=== PATIENT | female | born 1950 | race Caucasian/White ===

== ENCOUNTER → 2018-02-24 | Outpatient (CLI) | payer MEDICARE, OTHER ==
[~2018-02-24] MED LIST: ALBU90OI INH; ASCO1ER PO; ASPI325; ASPI325 PO; ASPI81CH PO; AZIT250 PO; Bactrim Ds Tab1 EACH PO; CEPH500 PO; CIPR500 PO; CITA20 PO; CYCL10 PO; DIAZ10 PO; DIPH50 PO; DOCU100 PO; ERGO400 PO; ESTR1 PO; ESTR2; FISH1000 PO; Flagyl500 MG PO; HYDACE25S; IBUP600 PO; IBUP800; IBUP800 PO; IRON PO; Kristalose20 GM PO; LEVSOD100; LEVSOD100 PO; LEVSOD125 PO; LEVSOD50 PO; LORA1 PO; METR500 PO; MIRALAX17 GM PO; MOTION SICKNESS PO; NAPR500EC PO; NITR100CA PO; OMEP20ER PO; OXYC40ER PO; PHENA200 PO; PRAV40 PO; PROACE100 PO; PROACE50 PO; PROM25 PO; Percocet 5-3251 EACH PO; RANI150; RANI150 PO; RXCLIN PO; RXERYTOPTH OP; SIMV40 PO; SIMV5 PO; SUCR1 PO; SULTRIDS PO; TRAM50 PO; Ultram50 MG PO; VENL75 PO; Zofran Odt8 MG SL
== END | disposition home or self-care (01) ==
LOC: PLD 16:42 → LAB SHORT 16:42
DX: D03.59 Melanoma in situ of other part of trunk (principal)
CPT/HCPCS: 88305

== ENCOUNTER → 2018-03-05 | Outpatient (CLI) | payer MEDICARE, OTHER | END | disposition home or self-care (01) | LOC: LAB SHORT 15:09 → PLD 15:09 | DX: C43.59 Malignant melanoma of other part of trunk (principal) | CPT/HCPCS: 88305 ==

== ENCOUNTER 2021-10-15 04:46 | Inpatient (IN) | payer OTHER ==
[~2021-10-15] VITALS: Ht 157.5 cm; Wt 127.6 kg
[~2021-10-15 04:46] MED LIST changes: +LEVSOD150 PO; +MYRBETRIQ50 MG; +RANI150EL; +SIMV40; +TOLT4
[2021-10-15 05:24] LABS: BASOPHILS ABSOLUTE AUTO 0.04 K/mm3 (0.00-0.23); BASOPHILS PERCENT AUTO 0 % (0-2); EOSINOPHILS ABSOLUTE AUTO 0.05 K/mm3 (0.00-0.68); EOSINOPHILS PERCENT AUTO 1 % (0-6); Hematocrit 45.7 % (33.0-51.0); Hemoglobin 15.7 g/dL (11.5-16.0); IMMATURE GRAN ABSOLUTE AUTO 0.05 K/mm3 (0.00-0.10); IMMATURE GRAN PERCENT AUTO 1 % (0-1); LYMPHOCYTES ABSOLUTE AUTO 1.47 K/mm3 (0.84-5.20); LYMPHOCYTES PERCENT AUTO 14 % (21-46); MONOCYTES ABSOLUTE AUTO 0.61 K/mm3 (0.16-1.47); MONOCYTES PERCENT AUTO 6 % (4-13); Mean Corpuscular HGB 32.6 pg (26.0-34.0); Mean Corpuscular HGB Conc 34.4 g/dL (31.5-36.5); Mean Corpuscular Volume 95 fL (80-100); NEUTROPHILS ABSOLUTE AUTO 8.05 K/mm3 (1.96-9.15); NEUTROPHILS PERCENT AUTO 78 % (41-73); Platelet Count 228 K/mm3 (150-400); RDW Coefficient Variation 14.5 % (11.7-14.2); RDW Standard Deviation 50.7 fL (35.1-46.3); Red Blood Cell Count 4.82 M/mm3 (3.80-5.20); White Blood Cell Count 10.27 K/mm3 (4.00-11.30)
[2021-10-15] MEDS ORDERED: OMEP20ER PO (05:32)
[2021-10-15] MEDS ORDERED: SUCRALFATE PO (05:32)
[2021-10-15] MEDS ORDERED: ASCO500 PO (05:33)
[2021-10-15] MEDS ORDERED: CENTRUM SILVER1 EAC2 PO (05:33)
[2021-10-15] MEDS ORDERED: ZINC50 M3 PO (05:34)
[2021-10-15] MEDS ORDERED: FISH OIL 1,2001 EAC1 PO (05:34)
[2021-10-15] MEDS ORDERED: Vitamin D1000 UNI1 PO (05:36)
[2021-10-15] MEDS ORDERED: Vitamin B Comple1 EA PO (05:36)
[2021-10-15] MEDS ORDERED: ROSU10TA PO (05:38)
[2021-10-15 05:49] LABS: Alanine Aminotransfer (ALT/SGP 31 U/L (12-78); Albumin, Blood 2.9 g/dL (3.4-5.0); Albumin/Globulin Ratio 0.6 (0.8-1.8); Alk Phos 94 U/L (50-136); Anion Gap 9 mmol/L (6-16); Aspartate Aminotrans (AST/SGOT 24 U/L (12-37); Bilirubin, Total 0.3 mg/dL (0.1-1.0); Blood Urea Nitrogen 17 mg/dL (8-24); Bun/Creatinine Ratio 27.6 (12.0-20.0); CO2, Blood 29 mmol/L (21-32); Calcium, Blood 9.5 mg/dL (8.5-10.1); Chloride, Blood 103 mmol/L (98-108); Creatinine, Blood 0.62 mg/dL (0.40-1.00); Globulin, Blood 4.7 g/dL (2.2-4.0); Glomerular Filtration Rate >60 (60-); Glucose, Blood 122 mg/dL (70-99); Potassium, Blood 2.9 mmol/L (3.5-5.5); Sodium, Blood 141 mmol/L (136-145); Total Protein, Blood 7.6 g/dL (6.4-8.2); Troponin I <0.015 ng/mL (0.000-0.040)
[2021-10-15 05:53] LABS: International Normalized Ratio 1.03; Prothrombin Time Results 10.8 Sec (9.7-11.5)
[2021-10-15 06:35] LABS: Influenza A, PCR NEGATIVE (NEGATIVE); Influenza B, PCR NEGATIVE (NEGATIVE); Resp Syncytial Virus, PCR NEGATIVE (NEGATIVE); SARS-Cov-2 (COVID-19) PCR, MMC NEGATIVE (NEGATIVE)
--- NOTE | 2021-10-15 10:21 | NUR ---
PT RECIEVED 1 OF 2 BAGS OF INTRAVENOUS POTASSIUM CHLORIDE IN EMERGENCY ROOM. SECOND BAG HELD AFTER CONSULTING DR. DUNLAP.
--- NOTE | 2021-10-15 16:00 | NUR ---
ARRIVAL TO UNIT ALERT, ORIENTED, & PLEASANT. ASSESSMENT CHARTED. DENIES N/V. ICE CHIPS GIVEN. PAIN TOLERABLE AT THIST ANDRE BUT STILL REQUESTS THE DILAUDID TIEING MACHINE OPERATOR BE STARTED. MED REQUESTED FROM PHARMACY @ THIS TIME. ABD BINDER IN PLACE.
--- NOTE | 2021-10-15 23:12 | NUR ---
PT IS IN BED AT THIS TIME WHERE SHE IS RESTING QUIETLY IN A PLEASANT MOOD. SHE IS FULLY ALERT, AWAKE AND ORIENTED, DENIES ANY PAIN. HAS REPORTED NAUSEA WHICH SHE STATED HAD GONE AWAY ON ITS OWN. NO ANTIEMETIC NEEDED AT THIS TIME. SHE IS URGED TO VERBALIZED DISCOMFORT TO STAFF. DECREASED BP AND INCREASE HEART RATE NOTE. THE DOCTOR RESPONDED BY ORDERING HER A LITER OF LR WHICH HAS IMPROVED THT CONDITION. PT IS ASSISTED WITH HER CARE AND ADLS, MEDICATED INDICATED. ASSISTED WITH REPOSITIONING TO ENHANCE COMFORT.
--- NOTE | 2021-10-16 02:01 | NUR ---
PT CONTINUES TO EXPERIENCE INCREASED HEART RATE AND DECREASED BP AFTER SHE TOOK 1L LR BOLUS. DR OLSEN NOTIFIED AND SAID TO GIVE HER ANOTHER LR BOLUS 1L AND INCREASE HER NS TO 150CC/HR. ORDER NOTED.
[2021-10-16 02:15] LABS: BASOPHILS ABSOLUTE AUTO 0.05 K/mm3 (0.00-0.23); BASOPHILS PERCENT AUTO 1 % (0-2); EOSINOPHILS ABSOLUTE AUTO 0.01 K/mm3 (0.00-0.68); EOSINOPHILS PERCENT AUTO 0 % (0-6); Hematocrit 39.4 % (33.0-51.0); Hemoglobin 13.1 g/dL (11.5-16.0); IMMATURE GRAN ABSOLUTE AUTO 0.04 K/mm3 (0.00-0.10); IMMATURE GRAN PERCENT AUTO 0 % (0-1); LYMPHOCYTES ABSOLUTE AUTO 1.01 K/mm3 (0.84-5.20); LYMPHOCYTES PERCENT AUTO 10 % (21-46); MONOCYTES ABSOLUTE AUTO 0.94 K/mm3 (0.16-1.47); MONOCYTES PERCENT AUTO 9 % (4-13); Mean Corpuscular HGB 32.8 pg (26.0-34.0); Mean Corpuscular HGB Conc 33.2 g/dL (31.5-36.5); Mean Corpuscular Volume 99 fL (80-100); Mean Platelet Volume 10.8 fL (9.1-12.4); NEUTROPHILS ABSOLUTE AUTO 8.18 K/mm3 (1.96-9.15); NEUTROPHILS PERCENT AUTO 80 % (41-73); Platelet Count 221 K/mm3 (150-400); RDW Coefficient Variation 14.9 % (11.7-14.2); White Blood Cell Count 10.23 K/mm3 (4.00-11.30)
[2021-10-16 02:29] LABS: Calcium, Blood 8.1 mg/dL (8.5-10.1); Magnesium, Blood 2.2 mg/dL (1.6-2.4); Potassium, Blood 3.8 mmol/L (3.5-5.5)
--- NOTE | 2021-10-16 07:35 | NUR ---
ASSUMED CARE: PT RESTING IN BED, 2L O2 IN PLACE VIA NC. PT STATES ABDOMEN IS TENDER. MIDLINE EDWARDO DRESSING NOTED WITH SMALL DROP OF BLOOD TO DRESSING. TAILER OUT PUMP IN PLACE FOR PT'S PAIN. HYPOTENSION NOTED, NIGHT RN REPORTED THAT DR IS AWARE. FLUIDS RUNNING AT 150/HR CURRENTLY. STORE ASSOCIATE AT BEDSIDE
--- NOTE | 2021-10-16 08:54 | NUR ---
DR SALES CAME TO SEE PT THIS AM. STATES OK WITH MAP GREATER THAN 65 OK. INSTRUCTED RN TO CHECK BACK WITH HER THIS AFTERNOON. MADE HER AWARE THAT NIGHT RN DID NOT DC PULIDO DUE TO LOW OUTPUT AND WAS CONCERNED THAT DR MAY STILL WANT TO MONITOR I AND O. DR INSTRUCTED TO LEAVE IT IN FOR NOW AND LEAVE FLUIDS AT 150/HR AT THIS TIME.
--- NOTE | 2021-10-16 09:57 | NUR ---
10/16/21 0957 Indira Acosta VERIFICATIONS: EDIT CHART.
--- NOTE | 2021-10-16 10:01 | NUR ---
PHYSICAL THERAPY CAME TO SEE PT AND PT REFUSED DUE TO WANTING TO HEAR SURGEON'S RECOMMENDATIONS FIRST. THIS RN CAME TO SEE PT AND MADE HER AWARE THAT IF SHE DOES NOT START AMBULATING THERE ARE RISKS OF SURGICAL COMPLICATIONS INCLUDING CONSTIPATION AND FURTHER PAIN. MADE HER AWARE THAT DR ANTHONY ORDERED PHYSICAL THERAPY CONSULT
--- NOTE | 2021-10-16 13:26 | NUR ---
CALL TO DR SALES TO UPDATE HER ON PT'S URINE OUTPUT AND BLOOD PRESSURE. NO CHANGES TO ORDERS AT THIS TIME. INSTRUCTS TO CALL BACK THIS AFTERNOON TO FOLLOW UP
--- NOTE | 2021-10-16 16:48 | NUR ---
CALL TO DR SALES REGARDING PT'S VITALS AND I AND OS. PT DOES NOT EXHIBIT ANY SIGN OF SOB OR OVERLOAD AT THIS TIME. DR INSTRUCTED TO MAINTAIN IVF AT CURRENT RATE AND TO CONTINUE MONITORING I AND O WITH PULIDO AT THIS TIME.
--- NOTE | 2021-10-16 18:14 | NUR ---
SHIFT SUMMARY: PT WAS SEEN BY DR ANTHONY AND DR ANTHONY WANTS TO ENCOURAGE CHANGE OF POSITION AND AMBULATION. PT REQUIRES A LOT OF ENCOURAGEMENT TO DO THIS. DILUADID MANAGER SEMICONDUCTOR IN PLACE. NAUSEA MEDS GIVEN MULTIPLE TIMES THIS SHIFT. UP IN RECLINER X2
--- NOTE | 2021-10-16 23:17 | NUR ---
PT C/O INCREASED HEARTBURN, DR OLSEN NOTIFIED AND SAID TO GIVE HER A DOSE OF IV PROTONIX NOW AND CHANGE HER DAILY DOSE TO BID. ORDER NOTED.
--- NOTE | 2021-10-17 04:35 | NUR ---
PT REMAINS IN BED THROUHOUT THE NIGHT AND IS RESTING IN STABLE CONDITION. SHE IS ALERT AND ORIENTED, MEDICATED WITH IV MEDS FOR C/O NAUSEA AND HEARTBURN. SHE IS RECOVERING FROM ABDOMINAL SURGERY, MIDLINE EDWARDO DRESSING NOTED AT THE INCISION SITE AND IS PATENT. PT IS ENCOURAGED TO PRACTICE LUNG EXERCISES VIA USE OF IS AND COUGH / DEEP BREATHING TO PROMOTE COMFORT AND AIR EXCHANGE. SHE IS ASSISTED WITH POSITION CHANGE, KEPT CLEAN AND DRY, MEDICATED INDICATED. HER CALL LIGHT WAS PLACED NEAR HER AND REMINDED TO CALL FOR HELP WHEN SHE NEEDS ASSISTANCE SHE IS MONITORED.
[2021-10-17 04:40] LABS: BASOPHILS ABSOLUTE AUTO 0.05 K/mm3 (0.00-0.23); BASOPHILS PERCENT AUTO 0 % (0-2); EOSINOPHILS ABSOLUTE AUTO 0.01 K/mm3 (0.00-0.68); EOSINOPHILS PERCENT AUTO 0 % (0-6); Hematocrit 38.5 % (33.0-51.0); Hemoglobin 12.2 g/dL (11.5-16.0); IMMATURE GRAN ABSOLUTE AUTO 0.16 K/mm3 (0.00-0.10); IMMATURE GRAN PERCENT AUTO 1 % (0-1); LYMPHOCYTES ABSOLUTE AUTO 1.05 K/mm3 (0.84-5.20); LYMPHOCYTES PERCENT AUTO 8 % (21-46); MONOCYTES ABSOLUTE AUTO 1.25 K/mm3 (0.16-1.47); MONOCYTES PERCENT AUTO 9 % (4-13); Mean Corpuscular HGB 32.2 pg (26.0-34.0); Mean Corpuscular HGB Conc 31.7 g/dL (31.5-36.5); Mean Corpuscular Volume 102 fL (80-100); Mean Platelet Volume 10.3 fL (9.1-12.4); NEUTROPHILS ABSOLUTE AUTO 10.93 K/mm3 (1.96-9.15); NEUTROPHILS PERCENT AUTO 81 % (41-73); Platelet Count 215 K/mm3 (150-400); RDW Coefficient Variation 15.3 % (11.7-14.2); RDW Standard Deviation 57.6 fL (35.1-46.3); Red Blood Cell Count 3.79 M/mm3 (3.80-5.20); White Blood Cell Count 13.45 K/mm3 (4.00-11.30)
[2021-10-17 05:13] LABS: Albumin, Blood 1.9 g/dL (3.4-5.0); Anion Gap 12 mmol/L (6-16); Blood Urea Nitrogen 17 mg/dL (8-24); Bun/Creatinine Ratio 27.2 (12.0-20.0); CO2, Blood 18 mmol/L (21-32); Calcium, Blood 7.7 mg/dL (8.5-10.1); Chloride, Blood 109 mmol/L (98-108); Creatinine, Blood 0.63 mg/dL (0.40-1.00); Glomerular Filtration Rate >60 (60-); Glucose, Blood 87 mg/dL (70-99); Phosphorus, Blood 1.9 mg/dL (2.5-4.9); Potassium, Blood 3.6 mmol/L (3.5-5.5); Sodium, Blood 139 mmol/L (136-145)
--- NOTE | 2021-10-17 14:46 | NUR ---
CARE ASSUMED OF PT. PT IS RESTING IN BED WITH EYES CLOSED, SHE APPEARS COMFORTABLE. FLOW WORKER BUTTON AND CALL LIGHT WITHIN REACH. WILL CONTINUE TO MONITOR.
--- NOTE | 2021-10-17 18:59 | NUR ---
SHIFT SUMMARY PAIN MANAGED WITH DILAUDID SUPERVISOR COOLER SERVICE THIS SHIFT. PT REPORTS PASSING FLATUS. TOLERATING SIPS AND CHIPS. NO CHANGES SINCE CARE ASSUMED.
--- NOTE | 2021-10-17 23:12 | NUR ---
PT IN BED AND IS RESTING COMFORTABLY, CONDITION IS STABLE. ALERT AND ORIENTED, ASSISTED WITH CARE AND ADLS, ASSISTED WITH BATHROOM AND TOILETING NEEDS, MEDICATED INDICATED. PT IS ASSISTED WITH POSITION CHANGE TO ENHANCE COMFORT, ENCOURAGED TO PRACTICE COUGH, DEEP BRETHING AND USE IS TO PROMOTE RESPIRATORY FUNCTION. CALL BALLESTEROS PLACED NEAR HER AND ENCOURAGED TO CALL FOR HELP WHEN ASSISTANCE IS NEEDED SHE IS MONITORED.
--- NOTE | 2021-10-18 05:23 | NUR ---
PT IS IN BED AT THIS TIME AND IS RESTING QUIETLY. SHE IS STABLE CONDITION. SHE IS ASSISTED WITH PERSONAL CARE AND ADLS, MEDICATED ORDERED. SHE CONTINUES TO EXPERIENCE SWELLING IN THE LOWER EXTREMITIES. SHE INDICATED THAT THE CONDITION IS NOT NEW TO HER. PALPABLE PEDAL PULSE NOTED BILATERALLY, CAP REFILL IN BOTH FEET IS < 3SECS, AND MOVEMENT IN THE FEET IS INTACT. SHE IS TRANSFERRED FROM BED TO HER BEDSIDE COMMODE WITH MODERATE ASSISTANCE WHEN SHE NEEDS TO USE THE BATHROOM. SHE IS ASSISTED WITH LEG ELEVATION TO PROMOTE VENOUS RETURN. PT CONTINUES TO RECOVER FROM ABD SURGERY, MIDLINE EDWARDO DRESSING IS IN PLACE AND IS PATENT, SHE IS ENCOURAGED TO USE HER BUILDING CONSTRUCTION TEACHER WHEN SHE FEELS PAIN. SHE IS URGED TO PRACTICE COUGHT, DEEP BREATHING, AND USE HER IS WHILE HOB IS KEPT ELEVATED TO PROMOTE AIR EXCHANGE. HER CALL LIGHT WAS GIVEN TO HER AND WAS ENCOURAGED TO CALL FOR HELP WHEN ASSISTANCE IS NEEDED SHE IS MONITORED.
[2021-10-18 06:01] LABS: BASOPHILS ABSOLUTE AUTO 0.03 K/mm3 (0.00-0.23); BASOPHILS PERCENT AUTO 0 % (0-2); EOSINOPHILS ABSOLUTE AUTO 0.13 K/mm3 (0.00-0.68); EOSINOPHILS PERCENT AUTO 2 % (0-6); Hematocrit 34.1 % (33.0-51.0); Hemoglobin 10.9 g/dL (11.5-16.0); IMMATURE GRAN ABSOLUTE AUTO 0.13 K/mm3 (0.00-0.10); IMMATURE GRAN PERCENT AUTO 2 % (0-1); LYMPHOCYTES ABSOLUTE AUTO 1.12 K/mm3 (0.84-5.20); LYMPHOCYTES PERCENT AUTO 15 % (21-46); MONOCYTES PERCENT AUTO 9 % (4-13); Mean Corpuscular HGB 31.8 pg (26.0-34.0); Mean Corpuscular Volume 99 fL (80-100); Mean Platelet Volume 10.2 fL (9.1-12.4); NEUTROPHILS ABSOLUTE AUTO 5.45 K/mm3 (1.96-9.15); NEUTROPHILS PERCENT AUTO 72 % (41-73); Platelet Count 188 K/mm3 (150-400); RDW Standard Deviation 55.1 fL (35.1-46.3); Red Blood Cell Count 3.43 M/mm3 (3.80-5.20); White Blood Cell Count 7.56 K/mm3 (4.00-11.30)
[2021-10-18 07:08] LABS: Albumin, Blood 1.6 g/dL (3.4-5.0); Anion Gap 5 mmol/L (6-16); Blood Urea Nitrogen 12 mg/dL (8-24); Bun/Creatinine Ratio 24.3 (12.0-20.0); CO2, Blood 25 mmol/L (21-32); Calcium, Blood 7.8 mg/dL (8.5-10.1); Chloride, Blood 108 mmol/L (98-108); Creatinine, Blood 0.49 mg/dL (0.40-1.00); Glomerular Filtration Rate >60 (60-); Glucose, Blood 111 mg/dL (70-99); Phosphorus, Blood 1.3 mg/dL (2.5-4.9); Potassium, Blood 4.2 mmol/L (3.5-5.5); Sodium, Blood 138 mmol/L (136-145)
--- NOTE | 2021-10-18 17:18 | NUR ---
PT REPORTS PAIN IS CONTROLLED AT 2-3 WITH PUBLICATIONS PRODUCTION SUPERVISOR. UP TTO CHAIR AND COMMODE WITH MODERATE ASSIST, PT NEEDS ENCOURAGEMENT TO ASSIST IN REPOSITIONING SELF AND ADJUSTING BED. ABD DRESSING INTACT WITH DRIED DRAINAGE. PT JENNY CLEAR LIQUIDS WITHOUT NAUSEA
--- NOTE | 2021-10-19 05:52 | NUR ---
SHIFT SUMMARY Pt A/Ox4, but drowsy/anxious over night. Pt transferred to and from bed to chair/commode multiple times with walker. x2 staff assist. Abd viviane dressing intact with small shadowing. Active bowel tones/passing flatus. + BM x1. Pain controlled with BUDGET ENGINEER and scheduled tylenol. VSS. Dypnea with exertion. 1.5L NC on patient. Pt voiding dark mile urine. Educated on the importance of increasing fluid intake for hydration. WCTM
[2021-10-19 08:41] LABS: Albumin, Blood 1.7 g/dL (3.4-5.0); Anion Gap 5 mmol/L (6-16); Blood Urea Nitrogen 11 mg/dL (8-24); Bun/Creatinine Ratio 23.1 (12.0-20.0); CO2, Blood 24 mmol/L (21-32); Chloride, Blood 108 mmol/L (98-108); Creatinine, Blood 0.48 mg/dL (0.40-1.00); Glomerular Filtration Rate >60 (60-); Glucose, Blood 98 mg/dL (70-99); Magnesium, Blood 2.1 mg/dL (1.6-2.4); Potassium, Blood 3.9 mmol/L (3.5-5.5); Sodium, Blood 137 mmol/L (136-145)
--- NOTE | 2021-10-19 11:35 | NUR ---
1040 PATIENT WITH ONSET OF AUDIBLE WHEEZES, DR ANTHONY HERE TO SEE PATIENT AND NEW ORDERS RECEIVED. LUNGS TIGHT, DIMINISHED IN LOWER 1/3.
--- NOTE | 2021-10-19 12:15 | NUR ---
PT FOUND STANDING IN ROOM TRANSFERRING SELF FROM COMMODE TO BED. CALL LIGT WAS ON PATIENTS LAP WHILE SHE WAS SITTING ON COMMODE. PT HAD REMOVED ABD BINDER, REDDENED ARE 2 "LONG NOTED ON LUMBAR AREA WHERE EDGE OF ABD BINDER WAS. PT REPOSITIONED IN BED, CALL LIGHT IN REACH AND PATIENT INSTRUCTED TO USE CALL LAIGHT AND NOT TO GET SELF OOB WITHOUT ASSISTANCE DUE TO FALL RISK. BED ALARM IN PLACE
--- NOTE | 2021-10-19 18:08 | NUR ---
PT WITH WAVES OF NAUSEA THAT SHE REPORTS IS NOT ASSOCIATED WITH INCREASED ABD PAIN. PT WITH PERIODS OF AUDIBLE WHEEEZING, DENIES SOB. 1 PERSON ASSIST TO BATHROOM OR COMMODE PT NEEDS MUCH ENCOURAGEMENT TO ASSIST IN ACTIVITIES. PT HAS DECLINED PO PAIN MEDS
--- NOTE | 2021-10-20 02:28 | NUR ---
Pt requesting something for sleep. State "I have no slept but an hour in 3 days". Covering doctor made aware. Orders for zyprexa x1 and given. See EMAR. WCTM
--- NOTE | 2021-10-20 03:51 | NUR ---
APPLIER Increased BP/HR/temp, decreased LOC and patient shaking after dose of zyprexa. APPLIER called at roughly 0305. [address] NC [address] on patient. Orders for NS at 75ml/hr, STAT EKG, tele monitoring, STAT CT of head and retraints to stop the patient from pulling at lines. Pt transferred at roughly [address] [facility]
[2021-10-20 04:06] LABS: Anion Gap 7 mmol/L (6-16); Blood Urea Nitrogen 12 mg/dL (8-24); Bun/Creatinine Ratio 22.8 (12.0-20.0); CO2, Blood 26 mmol/L (21-32); Calcium, Blood 8.5 mg/dL (8.5-10.1); Chloride, Blood 104 mmol/L (98-108); Creatinine, Blood 0.53 mg/dL (0.40-1.00); Glomerular Filtration Rate >60 (60-); Glucose, Blood 117 mg/dL (70-99); Phosphorus, Blood 1.9 mg/dL (2.5-4.9); Potassium, Blood 3.7 mmol/L (3.5-5.5); Sodium, Blood 137 mmol/L (136-145)
--- NOTE | 2021-10-20 04:26 | NUR ---
INCREAASED HR HR 130. DR MADE AWARE. X1 DOSE OF LOPRESSOR ORDERED AND GIVEN. SEE EMAR. PT HR NOW 106. WCTM
[2021-10-20 07:03] LABS: Influenza A, PCR NEGATIVE (NEGATIVE); Influenza B, PCR NEGATIVE (NEGATIVE); Resp Syncytial Virus, PCR NEGATIVE (NEGATIVE); SARS-Cov-2 (COVID-19) PCR, MMC NEGATIVE (NEGATIVE)
[2021-10-20 07:04] LABS: Source, Urine Catheter
[2021-10-20 07:13] LABS: Appearance, Urine Clear (Clear); Blood, Urine 1+ (Neg); Color, Urine Yellow (P-Yellow); Glucose Qualitative, Urine Neg (Neg); Ketones, Urine 4+ (Neg); Leukocyte Esterase, Urine 1+ (Neg); Nitrite, Urine Neg (Neg); Protein, Urine 2+ (Neg); Urobilinogen, Urine NORM (Normal)
--- NOTE | 2021-10-20 07:22 | NUR ---
ASSUMED PT CARE AT 0630 PT TRANSFERRED FROM SURGICAL FLOOR D/T FECES COMING OUT OF INCISION THAT HAD EDWARDO/WOUND VAC IN PLACE. PT ALERT AND CONVERSING WITH STAFF; ABLE TO STATE HER NAME, CITY, AND SURROUNDINGS. FORGETFUL OF DAY AND YEAR. PT DENIES ANY PAIN. ARRIVED ON A NON-REBREATHER AT 15L WITH OXYGEN SATURATIONS >90%. RESP RATE 30'S. LUNG SOUNDS NOTED TO BE COURSE WITH CRACKES TO BASES AND WHEEZING NOTED ON EXPIRATION. PT IS SINUS TACHYCARDIA WITH RATE 110-120'S. BP'S STABLE, BUT ON THE LOWER END COMPARED TO EARLIER BP'S, SEE FLOWSHEET. ABDOMEN IS VERY DISTENDED WITH TYMPANIC BOWEL TONES. PT RECEIVING 1L OF NS BOLUS, THEN TO FOLLOW WITH LR AT 150 ML/HR. ZOSYN INFUSING WELL. DR. CASTILLO TO BEDSIDE TO OBTAIN CONSENT FOR SURGERY WITH PLAN TO TAKE BACK TO OR SOON THE REST OF THE CREW ARRIVES. TEMP PULIDO CATHETER INSERTED WITH CLEAR DEBRA COLORED URINE SENT FOR UA. OVERALL SKIN IS INTACT WITH REDNESS NOTED TO DINESH AREA, BRUISING SCATTERED T/O. PT HAS A MIDLINE TO LEFT UPPER ARM. REPORT HANDED OFF TO NENO FORD
[2021-10-20 07:23] LABS: Bilirubin, Urine 1+ (Neg)
--- NOTE | 2021-10-20 07:23 | NUR ---
Abd viviane dressing changed at 10/19/21 @ 2030 for increased serosang drainage.
[2021-10-20 07:24] LABS: Mucus Light (0-Heavy); Red Blood Cells, Urine 0-2 /hpf (0-2); Squamous Epithelial Cells Few /hpf (Few)
[2021-10-20 07:25] LABS: Bacteria Rare /hpf
--- NOTE | 2021-10-20 07:38 | NUR ---
ASSUMED CARE REPORT RECEIVED FROM NENO MELTON. PT LAYING IN BED, RESPONDS TO VOICE, ORIENTED. LUNGS ARE COARSE. ON NON-REBREATHER, BUT SWITCHED TO 6L/NC AND SPO2 REMAINS 96%. BOLUS FINSIHING UP, SBP 140S, BUT DECREASED TO 110S EVEN WITH BOLUS INFUSING, SIT 110S. MIDLINE ABD INCISION WITH EDWARDO DRESSING ON THAT IS SATURATED WITH BROWN, FOUL SMELLING LIQUID. ABDOMEN DISTENDED, HARD. DR. CASTILLO WAS HERE AND PT IS TO GO BACK TO SURGERY SOON THE CREW IS READY.
--- NOTE | 2021-10-20 08:05 | NUR ---
PT TO OR
--- NOTE | 2021-10-20 08:54 | NUR ---
10/20/21 0854 Nupur Wilkins PT ON SCHEDULED ANTIBIOTICS AND RECIEVED PRIOR TO ARRIVAL TO OR. WHEN PREPPING PT SHE HAD STOOL CONSTANTLY DRAINING OUT OF HER STAPLED INCISION SITE.
--- NOTE | 2021-10-20 10:53 | NUR ---
PT BACK FROM OR AT 0945, INTUBATED, WOUND VAC TO MID ABDOMEN. PT STARTED TO MOVE AROUND SO PROPOFOL STARTED AND RESTRAINTS APPLIED. DR. BLANCHARD TO THE BEDSIDE TO ASSESS PT. RT AT BEDSIDE SETTING PT UP ON VENTILATOR. FIO2 ABLE TO BE TITRATED DOWN TO 30% WITH SPO2 STILL 99%. WOUND VAC KEPT ALARMING BLOCKAGE. CANNISTER CHANGED BUT KEPT ALARMING. MACHINE CHANGED AND IT WAS STILL ALARMING. KEPT TROUBLESHOOTING FOLLOWING THE RECOMMENDATIONS ON THE WOUND VAC SCREEN AND ALARM FINALLY RESOLVED AND IS ACTUALLY COLLECTING SOME SANGUINOUS DRAINAGE IN THE CANNISTER NOW.
--- NOTE | 2021-10-20 13:14 | NUR ---
REASSESSMENT PT REMAINS INTUBATED AND SEDATED. PICC LINE PLACED BY NENO LOPEZ FOR ANTICIPATED PRESSORS AND CPN. PT'S SBP DROPPED TO THE 70S, DR. BLANCHARD NOTIFIED AND ORDER RECEIVED FOR 1LNS. PT LUNGS HAVE A SLIGHT WHEEZE BILATERAL. FIO2 WEANED DOWN TO 30% AND SPO2 IS 96%. SR 98. FEVER STARTING TO CLIMB, ICE PACKS PLACED ON PT AND OK RECEIVED FROM DR. BLANCHARD TO SWITCH TYLENOL TO MS. PULIDO WITH ABOUT 60ML OF URINE SINCE 1000 WHEN PT GOT BACK FROM SOLUTIONS ANALYST, 200CC SINCE SINCE PLACED. CONTINUING TO MONITOR.
[2021-10-20 13:53] LABS: Base Excess Venous -3.6 mmol/L; Bicarbonate Venous 21.7 mmol/L (24.0-30.0); PCO2 Venous 33.5 mmHg (38-42); PO2 Venous 49.4 mmHg (38-42); pH Blood Venous 7.41 (7.34-7.37)
--- NOTE | 2021-10-20 17:19 | NUR ---
SHIFT SUMMARY PT WENT TO SURGERY THIS AM AND CAME BACK VENTED. SHE REMAINS SEDATED AND INTUBATED. THIS AFTERNOON SHE STARTED SHOWING SIGNS OF BEING IN PAIN, SUCH GRIMACING AND TENSING HER MUSCLES, SO SPOKE WITH DR. BLANCHARD AND RECEIVED ORDERS FOR FENTANYL AND THAT SEEMS TO HELP HER RELAX. HER LUNGS HAVE A FEW CRACKELS ON THE R BASE, BUT OTHERWISE ARE CLEAR AND DIM. SR/SIT. PT WAS HYPOTENSIVE THIS AFTERNOON SO SHE RECEIVED 2L OF BOLUS AND THEN LEVOPHED WAS STARTED. PT'S HAS BEEN MAINTAINING MAP ABOVE 60 WITH ONLY 4MCG/MIN OF LEVOPHED. PT'S FEVER HAS BEEN CONTROLLED TO THIS POINT WITH ICE PACKS, BUT AR TYLENOL AVAILABLE IF NEEDED. ABDOMEN REMAINS DISTENDED, FIRM AROUND WOUND VAC, THEN SOFTER TO THE OUTER AREA OF HER ABDOMEN. WOUND VAC HAS SANGUINEOUS OUTPUT. PULIDO WITH DARK YELLOW, CLEAR URINE. CONTINUING TO MONITOR.
--- NOTE | 2021-10-20 19:00 | NUR ---
ASSUMED CARE ASSUMED CARE OF PATIENT. REMAINS INTUBATED- AC/VC 14/400/PEEP5/FIO2 30%. RR MID-20s. SEDATED WITH PROPOFOL AT 40MCG/KG/MIN. WITHDRAWS EXTREMITIES WEAKLY TO NOXIOUS STIMULI. NOT FOLLOWING ANY COMMANDS. BILATERAL SOFT WRIST RESRAINTS IN PLACE TO PREVENT SELF-EXTUBATION. MONITOR SHOWS NSR, RATE 80s. LEVOPHED INFUSING AT 8MCG/MIN TO MAINTAIN MAP >65. TEMP 99.6F VIA PULIDO TEMP PROBE. OG TO LIS WITH GREEN DRAINAGE. MIDLINE ABDOMINAL INCISION WITH WOUND VAC IN PLACE- DRAINING SEROSANGUINOUS DRAINAGE. PULIDO PATENT AND DRAINING DEBRA URINE. LR INFUSING AT 150CC/HR PER ORDER. MARLEEN PICC LINE AND MIKE POWERGLIDE NOTED. SEE SHIFT ASSESSMENT FOR FULL ASSESSMENT.
[2021-10-21 04:48] LABS: Hematocrit 38.9 % (33.0-51.0); Hemoglobin 12.6 g/dL (11.5-16.0); Mean Corpuscular HGB 31.1 pg (26.0-34.0); Mean Corpuscular HGB Conc 32.4 g/dL (31.5-36.5); Mean Corpuscular Volume 96 fL (80-100); Mean Platelet Volume 10.3 fL (9.1-12.4); NRBC ABSOLUTE 0.07 K/mm3 (0.00-0.02); NRBC Auto 0.3 /100 WBC (0.0-0.2); Platelet Count 276 K/mm3 (150-400); RDW Coefficient Variation 15.5 % (11.7-14.2); RDW Standard Deviation 55.1 fL (35.1-46.3); Red Blood Cell Count 4.05 M/mm3 (3.80-5.20); White Blood Cell Count 20.56 K/mm3 (4.00-11.30)
[2021-10-21 05:31] LABS: BAND PERCENT MAN 42 % (0-8); BASOPHILS PERCENT MAN 0 % (0-2); EOSINOPHILS PERCENT MAN 0 % (0-6); LYMPHOCYTES ABSOLUTE MAN 0.82 K/mm3 (0.84-5.20); LYMPHOCYTES PERCENT MAN 4 % (21-46); METAMYELOCYTE ABSOLUTE MAN 0.41 K/mm3 (0.00-0.00); METAMYELOCYTE PERCENT MAN 2 % (0-0); MONOCYTES ABSOLUTE MAN 0.41 K/mm3 (0.16-1.47); MONOCYTES PERCENT MAN 2 % (4-13); MYELOCYTE PERCENT MAN 1 % (0-0); SEG NEUTROPHILS PERCENT MAN 49 % (41-73); TOTAL CELLS COUNTED 100
[2021-10-21 05:51] LABS: Albumin, Blood 1.1 g/dL (3.4-5.0); Anion Gap 12 mmol/L (6-16); Blood Urea Nitrogen 13 mg/dL (8-24); Bun/Creatinine Ratio 17.2 (12.0-20.0); CO2, Blood 21 mmol/L (21-32); Calcium, Blood 7.3 mg/dL (8.5-10.1); Chloride, Blood 106 mmol/L (98-108); Creatinine, Blood 0.76 mg/dL (0.40-1.00); Glomerular Filtration Rate >60 (60-); Glucose, Blood 93 mg/dL (70-99); Potassium, Blood 3.4 mmol/L (3.5-5.5); Sodium, Blood 139 mmol/L (136-145)
--- NOTE | 2021-10-21 05:55 | NUR ---
HYPOTENSION/CALL TO MD DR. BLANCHARD NOTIFIED OF MAP < 60 WITH LEVOPHED AT 20MCG/MIN- NEW ORDER RECEIVED FOR VASOPRESSIN GTT. ALSO NOTIFIED OF ABNORMAL AM LABS AND DECREASED URINE OUTPUT.
--- NOTE | 2021-10-21 06:32 | NUR ---
SHIFT SUMMARY REMAINS INTUBATED- VENT SETTINGS UNCHANGED. SEDATED WITH PROPOFOL BETWEEN 25-40MCG/KG/MIN DURING SHIFT- NOW INFUSING AT 25MCG/KG/MIN. WITHDRAWS EXTREMITIES TO NOXIOUS STIMULI. NOT FOLLOWING COMMANDS. FACIAL GRIMACING NOTED WITH ORAL CARE AND WITH REPOSITIONING. MEDICATED WITH FENTANYL 50MCG IV X 1 DOSE AND FENTANYL 25MCG IV X 1 DOSE FOR PAIN. LEVOPHED INFUSED BETWEEN 5-20MCG/MIN TO MAINTAIN MAP >65. LEVOPHED NOW AT 18MCG/MIN. VASOPRESSIN STARTED THIS AM. LR INFUSING AT 150CC/HR. OG WITH 250CC GREEN DRAINAGE T/O SHIFT. PULIDO DRAINING TO GRAVITY- TOTAL OF 350CC DEBRA URINE. MIDLINE ABD INCISION WITH WOUND VAC IN PLACE. SCDs TO BLEs. TMAX 101.3F. ICE PACKS TO BACK OF NECK AND UNDER ARMS INTERMITTENTLY. MEDICATED WITH TYLENOL 650MG WA X 1 DOSE. WILL REPORT TO ONCOMING RN WHEN AVAILABLE.
--- NOTE | 2021-10-21 13:52 | NUR ---
REASSESSMENT PT REMAINS INTUBATED AND SEDATED. SHE HAS BEEN FEBRILE RIGHT AROUND 101F ALL MORNING DESPITE TYLENOL, ICE PACKS AND A FAN ON PATIENT. LUNGS WERE CLEAR WITH A FAINT WHEEZE IN THE RIGHT BEEZE. SMALL AMT OF THICK GÓMEZ SPUTUM SUCTIONED OUT THIS MORNING. PT IS SR IN THE 90S. CONTINUES TO REQUIRE LEVOPHED FOR HYPOTENSION, BUT LEVOPHED HAS BEEN ABLE TO BE TITRATED DOWN THIS MORNING. ABDOMEN REMAINS DISTENDED, NO BOWEL TONES AUSCULTATED. WOUND VAC TO MIDLINE REMAINS C/D/I, SS DRAINAGE. PULIDO WITH DARK YELLOW URINE. SPOKE WITH PT'S SON AND PROVIDED UPDATE. CONTINUING TO MONITOR.
--- NOTE | 2021-10-21 17:10 | NUR ---
SHIFT SUMMARY PT REMAINS INTUBATED AND SEDATED. PRESSORS HAVE BEEN ABLE TO BE TITRATED DOWN THROUGHOUT THE DAY. LEVOPHED DOWN TO 6MCG/MIN AND VASOPRESSIN OFF. FEVER CONTINUES TO BE AN ISSUE WITH TEMP 101F DESPITE TYLENOL AND ICE PACKS. LUNGS ARE COARSE, SR. DARK YELLOW URINE FROM PULIDO. WOUND VAC STILL WITH GOOD SEAL AND SS DRAINAGE FROM IT. SKIN AROUND WOUND VAC APPEARS C/D/I. CONTINUING TO MONITOR.
--- NOTE | 2021-10-21 19:00 | NUR ---
ASSUMPTION OF CARE PT REMAINS INTUBATED WITH VENT SETTINGS AC/VC 14/400/5/30%. PT RECEIVING LEVOPHED 6MCG/MIN, LR 150/HR, AND PROPOFOL 25MCG/KG/MIN. PT HAS WOUND VAC IN PLACE. SITE VISUALIZED WITH DAY SHIFT RN WHO REPORTED NO CHANGES IN APPEARANCE SINCE LAST ASSESSMENT. DRESSING IS C/D/I, SMALL AMOUNT OF REDNESS AROUND BLACK FOAM. TISSUE SURROUNDING INCISION FIRM TO TOUCH. CORE TEMP IS 101. COOLING BLANKET REMAINS ON PT, NEW ICE PACKS APPLIED. PULIDO REMAINS IN PLACE DRAINING DARK YELLOW URINE. SEE SHIFT ASSESSMENT.
[2021-10-22 05:06] LABS: Hematocrit 33.7 % (33.0-51.0); Hemoglobin 11.5 g/dL (11.5-16.0); Mean Corpuscular HGB 32.2 pg (26.0-34.0); Mean Corpuscular HGB Conc 34.1 g/dL (31.5-36.5); Mean Corpuscular Volume 94 fL (80-100); Mean Platelet Volume 10.1 fL (9.1-12.4); NRBC ABSOLUTE 0.04 K/mm3 (0.00-0.02); NRBC Auto 0.2 /100 WBC (0.0-0.2); Platelet Count 164 K/mm3 (150-400); RDW Coefficient Variation 15.8 % (11.7-14.2); RDW Standard Deviation 54.6 fL (35.1-46.3); Red Blood Cell Count 3.57 M/mm3 (3.80-5.20); White Blood Cell Count 20.51 K/mm3 (4.00-11.30)
[2021-10-22 05:38] LABS: BAND PERCENT MAN 16 % (0-8); BASOPHILS PERCENT MAN 0 % (0-2); EOSINOPHILS PERCENT MAN 1 % (0-6); LYMPHOCYTES ABSOLUTE MAN 1.02 K/mm3 (0.84-5.20); LYMPHOCYTES PERCENT MAN 5 % (21-46); MONOCYTES ABSOLUTE MAN 0.41 K/mm3 (0.16-1.47); MONOCYTES PERCENT MAN 2 % (4-13); MYELOCYTE PERCENT MAN 1 % (0-0); NEUTROPHILS ABSOLUTE MAN 18.66 K/mm3 (1.96-9.15); SEG NEUTROPHILS PERCENT MAN 75 % (41-73); TOTAL CELLS COUNTED 100
[2021-10-22 05:43] LABS: Alanine Aminotransfer (ALT/SGP 18 U/L (12-78); Albumin, Blood 0.9 g/dL (3.4-5.0); Albumin/Globulin Ratio 0.2 (0.8-1.8); Alk Phos 189 U/L (50-136); Anion Gap 7 mmol/L (6-16); Aspartate Aminotrans (AST/SGOT 21 U/L (12-37); Bilirubin, Total 0.5 mg/dL (0.1-1.0); Blood Urea Nitrogen 18 mg/dL (8-24); Bun/Creatinine Ratio 26.4 (12.0-20.0); CO2, Blood 23 mmol/L (21-32); Calcium, Blood 7.4 mg/dL (8.5-10.1); Chloride, Blood 107 mmol/L (98-108); Creatinine, Blood 0.68 mg/dL (0.40-1.00); Globulin, Blood 3.7 g/dL (2.2-4.0); Glomerular Filtration Rate >60 (60-); Glucose, Blood 88 mg/dL (70-99); Magnesium, Blood 1.3 mg/dL (1.6-2.4); Phosphorus, Blood 3.1 mg/dL (2.5-4.9); Potassium, Blood 3.3 mmol/L (3.5-5.5); Sodium, Blood 137 mmol/L (136-145); Total Protein, Blood 4.6 g/dL (6.4-8.2)
--- NOTE | 2021-10-22 06:09 | NUR ---
SHIFT SUMMARY PT REMAINS INTUBATED WITH VENT SETTINGS AC/VC 14/400/5/40%. PT RECEIVING LEVOPHED AT 13MCG/MIN, PROPOFOL 30MCG/KG/MIN, AND LR. OGT REMAINS CONNECTED TO LOW INT SUCTION, 600ML DARK GREEN LIQUID DRAINAGE THIS SHIFT. WOUND VAC REMAINS IN PLACE, DRESSING C/D/I. SITE REMAINS UNCHANGED THROUGHOUT SHIFT. SMALL AMOUNT OF REDNESS AROUND BLACK FOAM, SURROUNDING TISSUE FIRM TO TOUCH. BOWEL TONES ABSENT. WOUND VAC COLLECTION CHAMBER FULL OF SEROSANGUIANOUS FLUID AND CHANGED AT APPROX 0530. LEVOPHED NEEDED TO BE TITRATED UP THROUGHOUT SHIFT AND BP REMAINS LABILE. HR BETWEEN 80S-120S. COOLING BLANKET THROUGHOUT NIGHT. CURRENT CORE TEMP 100.6. COOLING BLANKET AND ICE PACKS REMAIN IN PLACE. MEDICATED WITH TYLENOL PER EMAR. WILL REPORT TO ONCOMING RN.
--- NOTE | 2021-10-22 12:10 | NUR ---
PT IN ICU 07. GEMOLOGIST REPORTS PT BEEN NPO. RECENT COVID NEGATIVE. PT INTUBATED. PT REPORTS SON'S NUMBER ON CHART FOR CONSENT WHEN ANESTHIA AND DR PRESENT.
--- NOTE | 2021-10-22 13:57 | NUR ---
10/22/21 1357 Sonja Guzman ABDOMINAL PREP PERFORMED WITH BETADINE PAINT SOLUTION IN THE USUAL CLEAN TO DIRTY FASHION. LASTLY, BETADINE PAINT DILUTED WITH STERILE WARM NACL LIGHTLY POURED OUT OVER ANY OPEN TISSUE BY SABINA ALZCANO
--- NOTE | 2021-10-22 15:11 | NUR ---
ASSUMED CARE OF PATIENT 0700: VENTED, SEDATION VACATION, FOLLOWS COMMANDS, OPENS EYES, PUPILS 3MM BRISK, SCANT SECRETIONS, LEVO GTT CONTINUED, BP WNL, SATS WNL, MID ABDOMINAL WOUND VAC CDI, WILL CONTINUE TO MONITOR.
--- NOTE | 2021-10-22 18:09 | NUR ---
ALERT TO SELF, OPENS EYES, FOLLOWS COMMANDS, PUPILS 2/3MM BRISK, NSR VS ST 80-100S, +1 WEAK PULSES, BP MAP >65 WITH LEVO/VASO, LUNGS CLEAR, SCANT SECRETIONS, FIO2 MAINTAINED 40-60%, ABDOMEN ROUNDED, ABSENT BOWEL SOUNDS, OR PROCEDURE FOR ABDOMINAL WASH OUT WITH END ILEOSTOMY, LEFT UNIT 1310 RETURNED 1630, WOUND VAC TO MID ABDOMEN CDI SEROSANGUINOUS OUTPUT, UOP DEBRA/ORANGE ADEQUATE W/ PULIDO, CPN INITIATED, MAG/POTASSIUM REPLACED.
--- NOTE | 2021-10-22 19:30 | NUR ---
ASSESSMENT/ASSUMED CARE PT INTUBATED AND ON MECH VENT. PT NOT RESPONDING TO VERBAL STIMULI, BUT WITH GRIMACE WITH ORAL CARE AND REPOSITIONING. LUNGS COARSE AND DECREASED, BUT AFTER SUCTIONING SMALL AMT THIN CLEAR SECRECTIONS VIA ET TUBE PT CLEAR AND DECREASED IN THE BASES. VENT SETTINGS AC/VC 14/400/7/70%. HEART RATE REGULAR IN THE 90'S. BP STABLE ON LEVOPHED AT 4 MCQ/MIN TO KEEP MAP GREATER THAN 65. GENERAL EDEMA NOTED. BT ABSENT. ABD ROUND. MIDLINE ABD INCISION WITH WOUND VAC DRSG INPLACE DRAINING SEROUSANGIOUS FLUID. SKIN AROUND INCISION AND WOUND VAC DRSG RED. ILEOSTOMY TO RIGHT UPPER ABD WITH APPLIACE INTACT, STOMA RED, AND SEROUSANGIOUS FLUID DRAINING. PULIDO CATH PATENT DRAINING YELLOW URINE. POWER GLIDE TO LEFT UPPER ARM DRSG INTACT, SITE CLEAR WITH LR AT 50 ML/HR. PICC LINE TO RIGHT UPPER ARM DRSG INTACT, SITE CLEAR WITH PROPOFOL AT 30 MCQ/KG/MIN, NS 10 ML/HR X2, CPN AT 55 ML/HR, LEVOPHED AT 4 MCQ/MIN AND VASOPRESSING ON STAND BY/ BILAT SOFT WRIST RESTRAINTS ON. REPOSITIONED AND ORAL CARE DONE.
--- NOTE | 2021-10-22 21:42 | NUR ---
CRITICAL LAB DR DUMONT NOTIFIED REGARDING BLOOD CULTURE +, GRAM NEGATIVE BACILLI. REVIEWED VSS WITH DR DUMONT. OBTAINED ORDER FOR ALBUMIN AND MAY RESTRAT VASOPRESSIN IF NEEDED.
--- NOTE | 2021-10-22 22:22 | NUR ---
TEMP TEMP UP TO 100.0 WITH COOL CLOTH TO FOREHEAD, FAN ON PT AND BLANKETS REMOVED. GIVEN TYLENOL SUPP. STARTED ALBUMIN.
[2021-10-23 03:55] LABS: Hemoglobin 8.9 g/dL (11.5-16.0); Mean Corpuscular HGB 31.7 pg (26.0-34.0); Mean Corpuscular Volume 96 fL (80-100); NRBC ABSOLUTE 0.02 K/mm3 (0.00-0.02); NRBC Auto 0.1 /100 WBC (0.0-0.2); Platelet Count 73 K/mm3 (150-400); RDW Coefficient Variation 16.1 % (11.7-14.2); RDW Standard Deviation 57.3 fL (35.1-46.3); Red Blood Cell Count 2.81 M/mm3 (3.80-5.20); White Blood Cell Count 16.36 K/mm3 (4.00-11.30)
--- NOTE | 2021-10-23 04:00 | NUR ---
TEMP TEMP UP 100.8, ICE PACKS ON, COOL CLOTH TO FOREHEAD WITH FAN ON. MED WITH TYLENOL. COOLING BLANKET APPLIED.
[2021-10-23 04:16] LABS: Albumin, Blood 1.7 g/dL (3.4-5.0); Anion Gap 6 mmol/L (6-16); Blood Urea Nitrogen 23 mg/dL (8-24); Bun/Creatinine Ratio 35.9 (12.0-20.0); CO2, Blood 24 mmol/L (21-32); Calcium, Blood 7.5 mg/dL (8.5-10.1); Chloride, Blood 107 mmol/L (98-108); Creatinine, Blood 0.64 mg/dL (0.40-1.00); Glomerular Filtration Rate >60 (60-); Glucose, Blood 136 mg/dL (70-99); Magnesium, Blood 2.3 mg/dL (1.6-2.4); Sodium, Blood 137 mmol/L (136-145); Triglycerides 403 mg/dL (30-160)
[2021-10-23 04:43] LABS: BAND PERCENT MAN 11 % (0-8); BASOPHILS PERCENT MAN 0 % (0-2); EOSINOPHILS PERCENT MAN 0 % (0-6); LYMPHOCYTES ABSOLUTE MAN 0.16 K/mm3 (0.84-5.20); LYMPHOCYTES PERCENT MAN 1 % (21-46); MONOCYTES ABSOLUTE MAN 0.65 K/mm3 (0.16-1.47); MONOCYTES PERCENT MAN 4 % (4-13); MYELOCYTE ABSOLUTE MAN 0.16 K/mm3 (0.00-0.00); MYELOCYTE PERCENT MAN 1 % (0-0); NEUTROPHILS ABSOLUTE MAN 15.37 K/mm3 (1.96-9.15); SEG NEUTROPHILS PERCENT MAN 83 % (41-73); TOTAL CELLS COUNTED 100
--- NOTE | 2021-10-23 06:22 | NUR ---
SHIFT SUMMARY PT CONT INTUBATED AND ON MECH VENT. NO VENT CHANGES DURING THE NIGHT. LUNGS COARSE AND DECREASED. TEMP UP TO 101.1 DURING THE NIGHT. PT RECEIVED TYLENOL, AND IBUPROFEN. COOLING BLANKET ON WITH ICE PACKS BEHIND NECK, UNDER ARMS AND IN GROIN. COOL CLOTH AND FAN TO FACE. BP HYPOTENSIVE LEVOPHED INCREASED FROM 4 MCQ/MIN TO 7 MCQ/MIN AND VASOPRESSIN RESTARTED. PT RECEIVED ALBUMIN DURING THE NIGHT. MIDLINE ABD INCISION WITH WOUND VAC ON, SEROUSANGIOUS DRAINAGE. ILEOSTOMY WITH RED STOMA, DRAINING BROWN LIQUID. OG TO LIS DURING THE NIGHT. CURRENTLY OG CLAMPED AFTER PT RECEIVED SYNTHROID AND IBUPROFEN. REPORT TO ON COMING NURSE.
[2021-10-23 09:00] LABS: Hematocrit 30.1 % (33.0-51.0); Hemoglobin 9.6 g/dL (11.5-16.0); Mean Corpuscular HGB 31.8 pg (26.0-34.0); Mean Corpuscular HGB Conc 31.9 g/dL (31.5-36.5); Mean Corpuscular Volume 100 fL (80-100); Mean Platelet Volume 11.9 fL (9.1-12.4); NRBC ABSOLUTE 0.06 K/mm3 (0.00-0.02); NRBC Auto 0.3 /100 WBC (0.0-0.2); Platelet Count 76 K/mm3 (150-400); RDW Coefficient Variation 16.4 % (11.7-14.2); RDW Standard Deviation 60.9 fL (35.1-46.3); Red Blood Cell Count 3.02 M/mm3 (3.80-5.20); White Blood Cell Count 19.31 K/mm3 (4.00-11.30)
[2021-10-23 09:35] LABS: BAND PERCENT MAN 8 % (0-8); BASOPHILS PERCENT MAN 0 % (0-2); EOSINOPHILS ABSOLUTE MAN 0.77 K/mm3 (0.00-0.68); EOSINOPHILS PERCENT MAN 4 % (0-6); LYMPHOCYTES ABSOLUTE MAN 0.96 K/mm3 (0.84-5.20); LYMPHOCYTES PERCENT MAN 5 % (21-46); METAMYELOCYTE ABSOLUTE MAN 0.57 K/mm3 (0.00-0.00); METAMYELOCYTE PERCENT MAN 3 % (0-0); MONOCYTES ABSOLUTE MAN 0.57 K/mm3 (0.16-1.47); MONOCYTES PERCENT MAN 3 % (4-13); MYELOCYTE ABSOLUTE MAN 0.19 K/mm3 (0.00-0.00); MYELOCYTE PERCENT MAN 1 % (0-0); NEUTROPHILS ABSOLUTE MAN 16.22 K/mm3 (1.96-9.15); SEG NEUTROPHILS PERCENT MAN 76 % (41-73); TOTAL CELLS COUNTED 100
--- NOTE | 2021-10-23 10:08 | NUR ---
ASSUMED CARE OF PATIENT 0700: LEVO TITRATING UP HIGH 24, EPI GTT ORDERED, SEDATED PROP 30, MINIMAL PAIN RESPONSE, NO SBT PER MD DUMONT, TEMP MAX 100.4, ICE PACKS APPLIED, COOLING BLANKET CONTINUED, PULIDO DRAINING DEBRA/ORANGE OUTPUT, ABDOMINAL MID WOUND VAC CDI, ABSENT BOWELS, CASE DISCUSSED WITH MD DUMONT AND MD ANTHONY, ALBUMIN/NS BOLUS ORDER, REPEAT CULTURES/CBC, WILL CONTINUE TO MONITOR.
[2021-10-23 14:34] LABS: PCO2 Arterial 31.2 mmHg (35-45); PO2 Arterial 54.1 mmHg (80-100); pH Blood Arterial 7.37 (7.35-7.45)
--- NOTE | 2021-10-23 17:33 | NUR ---
MINIMAL PAIN RESPONSE, PUPILS 2MM SLUGGISH, NO SBT/SEDATION VACATION D/T WORSENING PRESENTATION, TMAX 100.4, COOLING BLANKET/ICE PACKS TO CORE, PROP TITRATED UP TO 40, FENT 50MCG X2 GIVEN FOR VENT COMPLIANCE, LUNGS CLEAR, SCANT SECRETIONS, FIO2/PEEP INCREASED TO MAINTAIN SATS, FIO2 80/PEEP 12, ABG OBTAINED W/ RESULTING COMPENSATED RESPIRATORY ALKALOSIS W/ HYPOXIA, HIGH PEAK PRESSURES W/ TACHYPNEA ON VENT/COUGHING, FENT PRN WITH IMPROVEMENT, NSR 60-80S, BP MAP MAINTAINED >65 W/ LEVO AND VASO GTT, HIGH 24 LEVO, 2D ECHO SOME RV DYSFUNCTION, CT ANGIO R/O NO PE BUT SOME PHTN W/ FLUID OVERLOAD, LR STOPPED, 40MG LASIX GIVEN, LASIX GTT PLACED, +1 WEAK PULSES, +2 BLE EDEMA, +1 EDEMA GENERALIZED, ABDOMEN ABSENT BOWELS, ROUNDED/DISTENDED NOT FIRM, MIDLINE INCISIN WOUND VAC CDI W/ ROUGHLY 250 OUTPUT, ILIOSTOMY 90ML DARK/BROWN LIQUID, PULIDO UOP DECREASED THIS SHIFT, DARK/DEBRA, WILL CONTINUE TO MONITOR AND REPORT TO NIGHT RN.
--- NOTE | 2021-10-23 20:20 | NUR ---
ASSUMED CARE. SEDATED ON VENT FOR SEPSIS WITH PERF BOWEL. PROPOFOL, CPN, VASO, LASIX, LEVO ALL INFUSING. RATES NOTED ON FLOWSHEET. WOUND VAC WITH SEROUS SANGUOUS DRAINAGE, SEALED INTACT. CATH PATENT AND DRAINING. TEMP AVERAGE 99. VENT 14/400/12/80%. COOLING BLANKET IN PLACE. ALL LINES PATENT. SEE ASSESSMENT FOR FURTHER DETAILS.
[2021-10-24 06:07] LABS: Hematocrit 29.5 % (33.0-51.0); Hemoglobin 9.3 g/dL (11.5-16.0); Mean Corpuscular HGB 32.7 pg (26.0-34.0); Mean Corpuscular HGB Conc 31.5 g/dL (31.5-36.5); Mean Corpuscular Volume 104 fL (80-100); Mean Platelet Volume 12.6 fL (9.1-12.4); NRBC ABSOLUTE 0.07 K/mm3 (0.00-0.02); NRBC Auto 0.3 /100 WBC (0.0-0.2); Platelet Count 58 K/mm3 (150-400); RDW Coefficient Variation 17.1 % (11.7-14.2); RDW Standard Deviation 65.7 fL (35.1-46.3); Red Blood Cell Count 2.84 M/mm3 (3.80-5.20); White Blood Cell Count 22.99 K/mm3 (4.00-11.30)
[2021-10-24 06:22] LABS: Albumin, Blood 1.9 g/dL (3.4-5.0); Anion Gap 12 mmol/L (6-16); Blood Urea Nitrogen 39 mg/dL (8-24); CO2, Blood 20 mmol/L (21-32); Calcium, Blood 7.1 mg/dL (8.5-10.1); Chloride, Blood 103 mmol/L (98-108); Creatinine, Blood 0.87 mg/dL (0.40-1.00); Glomerular Filtration Rate >60 (60-); Glucose, Blood 159 mg/dL (70-99); Phosphorus, Blood 3.7 mg/dL (2.5-4.9); Potassium, Blood 4.1 mmol/L (3.5-5.5); Sodium, Blood 135 mmol/L (136-145)
--- NOTE | 2021-10-24 06:38 | NUR ---
SHIFT SUMMARY: PROPOFOL DECREASED TO 30, NON-RESPONSIVE TO PAINFUL STIMULI. VENT CONTINUES AT 14/400/12/80%. LS COURSE, SCANT AMOUNT OF THIN CLEAR SECREATIONS SUCTIONED. NOTED MILD BLOOD TO THE RIGHT SIDE OF MOUTH DURING ORAL CARE, SCANT AMOUNTS. OG TUBE WITH NO CHANGE IN OUTPUT, BROWNISH/GREEN BILE. ILEOSTOMY NO CHANGE IN OUTPUT IN BAG, BROWN BILE. LEVO DECREASED TO 9, BP RUNNING 140'S. VASO NO CHANGE RUNNING 0.04, NS TKO, CPN NO CHANGE. BOTH PICC AND POWERGLIDE ARE PATENT BUT DON'T DRAW. POSITIVE BLOOD CULTURES RECEIVED GRAM NEGATIVE BACILLI-DR. NOLEN NOTIFIED, NO NEW ORDERS, ZOSYN COVERS. WOUND VAC MAINTAINED SUCTION AT 125MMGH, SEROUS SANGOUS DRAINAGE. PULIDO OUTPUT INCREASED LASIX WAS INCREASED TO 30CC/HR. TOTAL THIS SHIFT 2375CC OUT, TOTAL IN THIS SHIFT 2028 WITH A NEGATIVE 346. LASIX CURRENTLY AT 20CC/HR. FEBRILE AT 100.4 MOST OF SHIFT DISPITE TYLENOL, ICE PACKS, AND COOLING BLANKET. NO OTHER CHANGES TO NOTE. WILL REPORT TO DAYSHIFT.
[2021-10-24 06:50] LABS: BASOPHILS PERCENT MAN 0 % (0-2); EOSINOPHILS ABSOLUTE MAN 0.45 K/mm3 (0.00-0.68); EOSINOPHILS PERCENT MAN 2 % (0-6); TOTAL CELLS COUNTED 100
[2021-10-24 07:43] LABS: BAND PERCENT MAN 8 % (0-8); LYMPHOCYTES ABSOLUTE MAN 2.06 K/mm3 (0.84-5.20); LYMPHOCYTES PERCENT MAN 9 % (21-46); METAMYELOCYTE ABSOLUTE MAN 0.45 K/mm3 (0.00-0.00); METAMYELOCYTE PERCENT MAN 2 % (0-0); MONOCYTES ABSOLUTE MAN 0.68 K/mm3 (0.16-1.47); MONOCYTES PERCENT MAN 3 % (4-13); MYELOCYTE ABSOLUTE MAN 0.45 K/mm3 (0.00-0.00); MYELOCYTE PERCENT MAN 2 % (0-0); NEUTROPHILS ABSOLUTE MAN 18.85 K/mm3 (1.96-9.15); SEG NEUTROPHILS PERCENT MAN 74 % (41-73)
--- NOTE | 2021-10-24 08:00 | NUR ---
PT REMAINS INTUBATED, SEDATED, AND RESTRAINED. PT GRIMACES TO NOXIOUS STIMULI, BUT DOES NOT OPEN EYES,MOVE EXTREMITIES, OR FOLLOW COMMANDS. PROPOFOL DRIP @ 20 MCG/KG/MIN. COUGH+, GAG+, AND PUPILS 4 MM, SLUGGISH, BUT REACTIVE. RIGHT SCLERAL EDEMA NOTED. PT REMAINS FEBRILE-COOLING BLANKET AND ICE PACKS IN PLACE. ECG SHOWS SR WITH RATE 70'S. TITRATING LEVOPHED DRIP TO MAP 25-79-[id number] @ 7 MCG/MIN. VASOPRESSIN DRIP @ 0.04 UNITS/MIN. LUNGS TIGHT AND DIMINISHED WITH EXPIRATORY WHEEZES. MINIMAL, TANISH ETT SECRETIONS. ETT TO VENT AC 14, RR 26, TV 400, PEEP 12, FIO2 80%-MAINTAINS SATS>90%. OGT TO LIS WITH SMALL AMOUNT OF BROWN, LIQUID DRAINAGE. WOUND VAC TO ABDOMEN C/D/I-DRAINING SANGUINOUS FLUID. NO BT'S AUSCULTATED, BUT ILEOSTOMY STOMA PINK AND DRAINING A SMALL AMOUNT OF BROWN, LIQUID. GENERALIZED EDEMA CONTINUES. DP/PT PULSES PER DOPPLER. PULIDO WITH ADEQUATE URINE OUTPUT. TITRATING LASIX DRIP TO 100CC U/O PER HOUR. CURRENTLY, LASIX DRIP @ 10MG/HR. WILL CONTINUE TO MONITOR U/O HOURLY AND TITRATE LASIX ACCORDINGLY.
--- NOTE | 2021-10-24 10:06 | NUR ---
TEMP TRENDING 99.0. MAP TRENDING 65-70. LEVOPHED AND VASOPRESSIN ON SB. U/O 190-LASIX DRIP CONTINUES @ 2.5MG/HR. ETT SUCTION PRODUCTIVE OF LARGE AMOUNT OF THICK, YELLOW SPUTUM.DR. DUMONT AWARE AND SPUTUM SPECIMEN SENT.
--- NOTE | 2021-10-24 11:45 | NUR ---
PT GIVEN SEDATION VACATION FOR [id number]. DURING THAT TIME, PT OPENED HER EYES, AND NODDED "YES" TO PAIN. PT UNABLE TO FOLLOW COMMANDS TO CERTIFIED SHORTHAND REPORTER AND WIGGLE HER TOES AT THIS TIME. RR 40'S AND PT GRIMACING/COUGHING. PROPOFOL RESUMED @ 30 MCG/KG/MIN AND PT MED WITH FENTANYL 50 MCG IVP X 1-SEE EMAR.ILEOSTOMY WITH 150 CC BROWN, LIQUID STOOL EMPTIED SO FAR THIS SHIFT. URINE OUTPUT HAS BEEN 100 CC OR GREATER WITH LASIX DRIP @ 5 MG.
--- NOTE | 2021-10-24 12:30 | NUR ---
DR. ANTHONY IN TO SEE PT. UPDATED TO CURRENT VS AND STATUS. BC TO BE REPEATED IN AM. DIETARY CONSULTED TO BEGIN TRICKLE FEEDS THIS AFTERNOON.
--- NOTE | 2021-10-24 13:50 | NUR ---
PT SON AMANDEEP CONTACTED-UPDATED TO CURRENT STATUS AND PLAN OF CARE.
--- NOTE | 2021-10-24 16:00 | NUR ---
PT RESTING QUIETLY ON VENT WITH PROPOFOL @ 30 MCG/KG/MIN. AFEBRILE. BP STABLE NO PRESSORS. ECG SHOWS SR WITH RATE 70-80'S. EDEMA CONTINUES, BUT IMPROVED. U/O HAD REMAINED>100 CC/HR WITH LASIX DRIP @ 5MG/HR. MAINTAINS SATS>90% ON FIO2 65%-NO OTHER VENT CHANGES. OGTF VHP @ 10 CC/HR WITH H20 30 CC FLUSH EVERY FOUR HOURS INITIATED. WILL CONTINUE CPN TO SEE WHETHER OR NOT PT IS ABLE TO TOLERATE TF. ABDOMINAL WOUND VAC DRESSING C/D/I-200 CC OUT.ILEOSTOMY CONTINUES TO DRAIN BROWN LIQUID STOOL.
--- NOTE | 2021-10-24 17:42 | NUR ---
PT GIVEN BEDBATH, SHAMPOO, AND LINEN CHANGE COMPLETED-TOLERATED WELL.
--- NOTE | 2021-10-24 19:23 | NUR ---
ASSUMED CARE. MORE ALERT AND RESPONSIVE TO PAIN STIMULI. RESPONDS WHEN MOVED SLIGHTLY IN BED. COUGH NOTED DURING SUCTIONING. GAG REFLEX NOTED ON DEEP SUCTIONING. ON PROPOFOL, CPN, AND LASIX INFUSIONS. HOURLY URINE MONITORING AVERAGING IN THE 200'S. VENT DECREASED TO 65% TODAY. AFEBRILE. VS WNL. WILL CONTINUE TO MONITOR.
[2021-10-25 04:44] LABS: Hematocrit 23.3 % (33.0-51.0); Hemoglobin 7.6 g/dL (11.5-16.0); Mean Corpuscular HGB 31.8 pg (26.0-34.0); Mean Corpuscular HGB Conc 32.6 g/dL (31.5-36.5); Mean Platelet Volume 11.8 fL (9.1-12.4); Platelet Count 63 K/mm3 (150-400); RDW Coefficient Variation 16.5 % (11.7-14.2); RDW Standard Deviation 58.9 fL (35.1-46.3); Red Blood Cell Count 2.39 M/mm3 (3.80-5.20); White Blood Cell Count 9.88 K/mm3 (4.00-11.30)
[2021-10-25 05:03] LABS: Mean Corpuscular Volume 98 fL (80-100)
[2021-10-25 05:19] LABS: Alanine Aminotransfer (ALT/SGP 19 U/L (12-78); Albumin, Blood 1.5 g/dL (3.4-5.0); Albumin/Globulin Ratio 0.4 (0.8-1.8); Alk Phos 140 U/L (50-136); Anion Gap 10 mmol/L (6-16); Aspartate Aminotrans (AST/SGOT 34 U/L (12-37); Bilirubin, Direct 0.6 mg/dL (0.0-0.3); Bilirubin, Indirect 0.3 mg/dL (0.1-0.7); Bilirubin, Total 0.9 mg/dL (0.1-1.0); Blood Urea Nitrogen 47 mg/dL (8-24); Bun/Creatinine Ratio 53.2 (12.0-20.0); CO2, Blood 23 mmol/L (21-32); Calcium, Blood 7.6 mg/dL (8.5-10.1); Chloride, Blood 107 mmol/L (98-108); Creatinine, Blood 0.88 mg/dL (0.40-1.00); Globulin, Blood 3.6 g/dL (2.2-4.0); Glomerular Filtration Rate >60 (60-); Glucose, Blood 118 mg/dL (70-99); Magnesium, Blood 2.3 mg/dL (1.6-2.4); Phosphorus, Blood 3.5 mg/dL (2.5-4.9); Potassium, Blood 3.6 mmol/L (3.5-5.5); Sodium, Blood 140 mmol/L (136-145); Total Protein, Blood 5.1 g/dL (6.4-8.2)
--- NOTE | 2021-10-25 06:06 | NUR ---
SHIFT SUMMARY: CONTINUES ON PROFOFOL AT 20MG/HR. DID GIVE HER A SEDATION VACATION FOR BRIEF PERIOD AT WHICH SHE WAS ABLE TO OPEN HER EYES, ANSWER YES AND NO QUESTIONS BY BLINKING HER EYES. WAS ABLE TO STATE SHE WAS IN PAIN. GAVE PAIN MEDICATION TWICE THIS SHIFT. LASIX CONTINUES AT 5CC/HR, WITH AVERAGE HOURLY OUTPUT IN THE 200'S. CPN NO CHANGE. TUBE FEED INFUSING AT 10CC/HR. OSTOMY HAS THICKENED UP, BROWN IN COLOR. VENT SETTINGS DECREASED TO 14/400/10/50%. CATH REMAINS PATENT. WOUND VAC STILL INTACT AND DRAINING SCANT AMOUNTS OF SEROUS SANGUOUS FLUIDS. REPOSITIONED Q2. EDEMA HAS DECREASED. LS DIMINISHED WITH OCCATIONAL WHEEZES. HAD TO SUCTION MORE TONIGHT THEN PREVIOUS NIGHT, SECREATIONS THICK YELLOW. PICC AND POWERGLIDE DRESSING'S WERE CHANGED. VS WNL, AFEBRILE. NO FURTHER CHANGES TO REPORT. WILL REPORT TO DAYSHIFT.
[2021-10-25 06:13] LABS: BAND PERCENT MAN 3 % (0-8); BASOPHILS PERCENT MAN 0 % (0-2); EOSINOPHILS PERCENT MAN 0 % (0-6); LYMPHOCYTES ABSOLUTE MAN 0.88 K/mm3 (0.84-5.20); LYMPHOCYTES PERCENT MAN 9 % (21-46); METAMYELOCYTE ABSOLUTE MAN 0.29 K/mm3 (0.00-0.00); METAMYELOCYTE PERCENT MAN 3 % (0-0); MONOCYTES ABSOLUTE MAN 0.29 K/mm3 (0.16-1.47); MONOCYTES PERCENT MAN 3 % (4-13); MYELOCYTE ABSOLUTE MAN 0.19 K/mm3 (0.00-0.00); MYELOCYTE PERCENT MAN 2 % (0-0); SEG NEUTROPHILS PERCENT MAN 80 % (41-73); TOTAL CELLS COUNTED 100
--- NOTE | 2021-10-25 08:00 | NUR ---
PT REMAINS INTUBATED, SEDATED, AND RESTRAINED. PT GRIMACES TO NOXIOUS STIMULI WITH PROPOFOL @ 20 MCG/KG/MIN. ECG SHOWS SR WITH RATE 70-80'S. TEMP 99.0. MAP TRENDING LESS THAN 60-LEVOPHED DRIP RESUMED-TITRATING TO KEEP MAP 80-17-XCURGOALC @ 5 MCG/MIN. GENERAL EDEMA CONTINUES, BUT IMPROVED. LUNGS DIMINISHED IN THE BASES. ETT TO VENT:AC14, RR 20'S, TV 400, FIO2 40%, PEEP 10-SATS>90% ETT SUCTION PRODUCTIVE OF MODERATE AMOUNT OF THICK, YELLOW SECRETIONS. OGTF @ 10CC/HR-150 RESIDUAL. ABDOMINAL WOUND VAC DRESSING REMAINS C/D/I. ILEOSTOMY WITH SMALL AMOUNT OF BROWN, LIQUID STOOL. ANTICIPATE WOUND VAC DRESSING CHANGE @ [address] NIX. PULIDO WITH ADEQUATE URINE OUTPUT WITH LASIX DRIP @ 5 MG/HR. TITRATING TO URINE OUTPUT>100 CC/HR.
--- NOTE | 2021-10-25 08:18 | NUR ---
DR. DUMONT IN TO SEE PT. UPDATED TO CURRENT VS AND STATUS. LASIX DRIP OFF. MD AWARE OF HYPOTENSION AND THAT LEVOPHED DRIP HAS BEEN RESUMED.ALBUMIN ORDERED. WILL CONTINUE TO MONITOR HOURLY URINE OUTPUT-WILL NOTIFY DR. DUMONT IF URINE OUTPUT IS LESS THAN 100 CC/HR.
--- NOTE | 2021-10-25 09:45 | NUR ---
ALBUMIN INITIATED. PT SON AMANDEEP UPDATED TO CURRENT STATUS AND PLAN OF CARE. AMANDEEP TO VISIT DURING VISITING HOURS TODAY.
--- NOTE | 2021-10-25 12:00 | NUR ---
PT RESTING QUIETLY ON VENT WITH PROPOFOL @ 30 MCG/KG/MIN. TEMP 99.7-COOLING BLANKET IN PLACE. MAP TRENDING 70-80'S-LEVOPHED DRIP OFF. U/0>100 CC/HR LASIX DRIP OFF. PT TOLERATING OGTF WELL. NO RESIDUAL. WITH ASK DR. ANTHONY IF TF RATE CAN BE ADVANCED AND CPN DISCONTINUED. DR. ANTHONY TO COME BY AT APROXIMATELY 1230 FOR ABDOMINAL WOUND VAC DRESSING CHANGE. PT MED WITH ATIVAN 1 MG IVP AND DILAUDID 0.5 MG X1 IN PREP FOR WOUND VAC DRESSING CHANGE.
--- NOTE | 2021-10-25 12:45 | NUR ---
DR. ANTHONY HERE TO CHANGE WOUND VAC. WOUND BED IS PINK, BEEFY RED. NO SIGNS OF INFECTION. VERBAL ORDER GIVEN TO CHANGE WOUND VAC DRESSING EVERY THREE DAYS. OK GIVEN TO ADVANCE TUBE FEED SLOWLY TOWARDS GOAL RATE-DIETARY NOTIFIED.
--- NOTE | 2021-10-25 13:00 | NUR ---
U/O 40CC OVER THE PAST HOUR-WILL NOTIFY DR. DUMONT.
--- NOTE | 2021-10-25 14:08 | NUR ---
PT SON AMANDEEP IN FOR VISIT. UPDATED TO CURRENT STATUS.
--- NOTE | 2021-10-25 15:00 | NUR ---
DR. DUMONT AWARE THAT URINE OUTPUT IS LESS THAN 100 CC/HR. RN TO CALL DR. DUMONT BEFORE CHANGE OF SHIFT WITH I&O AND MD WILL REASSESS AT THAT TIME.
--- NOTE | 2021-10-25 16:09 | NUR ---
PATIENT REMAINS INTUBATED AND RESTRAINED. LUNGS WERE COARSE BUT CLEARED AFTER SUCTIONING. SUPPRESORS ARE ON STANDBY WITH IMPROVING URINE OUTPUT. PATIENT ROTATED TO HER LEFT SIDE. PROTEIN PACKET GIVEN VIA OG TUBE AND TOLERATED. ORAL CARE PERFORMED.
--- NOTE | 2021-10-25 17:41 | NUR ---
PT RESTING QUIETLY ON VENT WITH PROPOFOL @ 30 MCG/KG/MIN. TEMP 99.3-REPLACED COOLING BLANKET. MAINTAINS MAP>60. NO PRESSORS. MAINTAINS U/O>100 CC/HR. NO LASIX DRIP. INTAKE 1555 VS. 1960 OUT THIS SHIFT. WILL UPDATE DR. DUMONT WITH I&O.
--- NOTE | 2021-10-25 18:00 | NUR ---
DR. DUMONT AWARE OF I&O FOR SHIFT. WILL CONTINUE TO MONITOR OUPUT CLOSELY. CONTINUE TO HOLD LASIX DRIP AT THIS TIME. NO ACUTE CHANGES.WILL REPORT TO ONCOMING SHIFT.
--- NOTE | 2021-10-25 20:00 | NUR ---
ASSUMED CARE. SEAN CONTINUES ON PROPOFOL AT 30MCQ/HR. VENT SETTINGS CONTINUE AT 14/400/10/40%, TOLERATING IT WELL. VERY LITTLE WAS OBTAINED ON SUCTION. ORAL CARE WAS COMPLETED. REPOSITIONED. TUBE FEED AT 20CC/HR. CATH PATIENT, WOUND VAC SEAL INTACT AND SUCTION OBTAINED. WILL CONTINUE TO MONITOR AND PROVIDE TX.
[2021-10-26 03:19] LABS: Hematocrit 21.3 % (33.0-51.0); Hemoglobin 7.1 g/dL (11.5-16.0); Mean Corpuscular HGB 31.7 pg (26.0-34.0); Mean Corpuscular HGB Conc 33.3 g/dL (31.5-36.5); Mean Corpuscular Volume 95 fL (80-100); Mean Platelet Volume 11.7 fL (9.1-12.4); NRBC ABSOLUTE 0.03 K/mm3 (0.00-0.02); NRBC Auto 0.4 /100 WBC (0.0-0.2); Platelet Count 90 K/mm3 (150-400); RDW Coefficient Variation 16.6 % (11.7-14.2); RDW Standard Deviation 58.2 fL (35.1-46.3); Red Blood Cell Count 2.24 M/mm3 (3.80-5.20); White Blood Cell Count 8.53 K/mm3 (4.00-11.30)
[2021-10-26 03:37] LABS: Anion Gap 7 mmol/L (6-16); Blood Urea Nitrogen 39 mg/dL (8-24); Bun/Creatinine Ratio 56.9 (12.0-20.0); CO2, Blood 26 mmol/L (21-32); Chloride, Blood 110 mmol/L (98-108); Creatinine, Blood 0.69 mg/dL (0.40-1.00); Glomerular Filtration Rate >60 (60-); Glucose, Blood 114 mg/dL (70-99); Magnesium, Blood 2.2 mg/dL (1.6-2.4); Phosphorus, Blood 2.8 mg/dL (2.5-4.9); Potassium, Blood 3.4 mmol/L (3.5-5.5); Sodium, Blood 143 mmol/L (136-145)
[2021-10-26 04:43] LABS: BAND PERCENT MAN 3 % (0-8); BASOPHILS PERCENT MAN 0 % (0-2); EOSINOPHILS ABSOLUTE MAN 0.34 K/mm3 (0.00-0.68); EOSINOPHILS PERCENT MAN 4 % (0-6); LYMPHOCYTES ABSOLUTE MAN 1.02 K/mm3 (0.84-5.20); LYMPHOCYTES PERCENT MAN 12 % (21-46); METAMYELOCYTE ABSOLUTE MAN 0.25 K/mm3 (0.00-0.00); METAMYELOCYTE PERCENT MAN 3 % (0-0); MONOCYTES ABSOLUTE MAN 0.17 K/mm3 (0.16-1.47); MONOCYTES PERCENT MAN 2 % (4-13); MYELOCYTE ABSOLUTE MAN 0.34 K/mm3 (0.00-0.00); MYELOCYTE PERCENT MAN 4 % (0-0); NEUTROPHILS ABSOLUTE MAN 6.39 K/mm3 (1.96-9.15); SEG NEUTROPHILS PERCENT MAN 72 % (41-73); TOTAL CELLS COUNTED 100
--- NOTE | 2021-10-26 05:33 | NUR ---
SHIFT SUMMARY: PROPOFOL CONTINUES AT 30MCQ, SEDATION IS ACHEIVED WITH RESPONSE TO PAINFUL STIMULI. SHE HAS APPEARED COMFORTABLE, WITH NO SIGNS OF GRIMACING OR PAIN. CONTINUES TO HAVE NS AT TKO WITH PIGGYBACK ANTIBOTIC. URINE OUTPUT HAS DECREASED TO TOTAL 1100CC THIS SHIFT. TOLERATING TUBE FEED WITH SMALL AMOUNT OF RESIDUAL NOTED. EDEMA IN THE UPPER EXTREMITIES HAS DECREASED. LOWER EXTREMITITES ARE 2+ WITH LEFT GREATER THEN RIGHT. ELEVATED ON PILLOWS. FEBRILE HIGHEST 99.4, COOLING BLANKET HAS REMAINED IN PLACE. REST OF VITALS WITH IN PATIENTS NORM.
--- NOTE | 2021-10-26 08:17 | NUR ---
ASSUMED CARE BEDSIDE REPORT FROM CUBA/LESLEY LAZCANO. PT INTUBATED AND SEDATED. VENT SETTING AC/VC+ 14/400/0.7/10/35%. LUNGS COARSE THROUGHOUT. SMALL AMOUNT OF YELLOW THICK SECRETIONS THROUGH ETT. COUGH/GAG REFLEX PRESENT. GRIMACES c CARE. PROPOFOL GTT FOR SEDATION, FENTANYL PRN FOR PAIN. SR, RATE 70'S. BP STABLE. ABD ROUND, SOFT, NON TENDER. HYPOACTIVE BT X 4. WOUND VAC MIDLINE, GOOD SEAL, 70 MMHG SUCTION. ILEOSTOMY TO RLQ, STOMA ROUND, PINK, LIQUID BROWN STOOL IN APPLIANCE. 2+ EDEMA TO BLE. PULIDO PATENT, DRAINING CLEAR YELLOW URINE TO GRAVITY. PICC TO LUE, POWERGLIDE TO RUE, DRESSINGS C/D/I. WILL CONTINUE TO MONITOR.
--- NOTE | 2021-10-26 09:59 | NUR ---
DR BECKWITH ROUNDS/SEDATION VACATION PROPOFOL PLACED ON STANDBY. PT OPENS EYES SPONT, CLOSES ON REQUEST. ABLE TO SLIGHTLY WIGGLE TOES ON COMMAND, DOES NOT PASSENGER REPRESENTATIVE. VENT SETTINGS CHANGED TO SPONT 15/7/35%, TOLERATING WELL. TV 400'S, RATE MID 20'S. WILL CONTINUE OPEN ENDED SBT. RESTARTED PROPOFOL AT 15 MCG/KG/MIN D/T GRIMACE. MEDICATED c FENTANYL. WILL CONTINUE TO MONITOR.
[2021-10-26 17:16] LABS: Hematocrit 20.9 % (33.0-51.0); Hemoglobin 6.7 g/dL (11.5-16.0)
--- NOTE | 2021-10-26 17:32 | NUR ---
SHIFT SUMMARY NO ACUTE CHANGES THIS SHIFT. PT REMAINS ON SPONT 15/35%, TOLERATING WELL. OCCASIONAL COUGH. SEDATION CHANGED TO PRECEDEX. FENTANYL PRN. LUNGS COARSE, SMALL THICK SECRETIONS THROUGH ETT. ABD ROUND, SOFT, NON TENDER. HYPOACTIVE BT. WOUND VAC IN PLACE, FUNCTIONING. ILEOSTOMY c LIQUID BROWN STOOL OUT. STOMA RED, WNL. TUBE FEEDS BEING INCREASED, RESIDUALS 80-110 ML THIS SHIFT. PULIDO PATENT, DRAINING DEBRA URINE TO GRAVITY, DIURESED, 1200 ML OUT THIS SHIFT. EDEMA UNCHANGED. REPEAT HGB 7.1. PLAN TO TRANSFUSE 1 UNIT PRBC. VSS. PICC TO RUE, POWERGLIDE TO LUE REMOVED. WILL CONTINUE TO MONITOR UNTIL REPORT TO ONCOMING NURSE.
[2021-10-27 03:26] LABS: Hematocrit 23.4 % (33.0-51.0); Hemoglobin 7.6 g/dL (11.5-16.0); Mean Corpuscular HGB 31.4 pg (26.0-34.0); Mean Corpuscular HGB Conc 32.5 g/dL (31.5-36.5); Mean Corpuscular Volume 97 fL (80-100); Mean Platelet Volume 11.9 fL (9.1-12.4); NRBC ABSOLUTE 0.09 K/mm3 (0.00-0.02); NRBC Auto 0.8 /100 WBC (0.0-0.2); Platelet Count 132 K/mm3 (150-400); RDW Standard Deviation 59.9 fL (35.1-46.3); Red Blood Cell Count 2.42 M/mm3 (3.80-5.20); White Blood Cell Count 11.17 K/mm3 (4.00-11.30)
[2021-10-27 03:58] LABS: Albumin, Blood 1.9 g/dL (3.4-5.0); Anion Gap 6 mmol/L (6-16); Blood Urea Nitrogen 32 mg/dL (8-24); Bun/Creatinine Ratio 49.3 (12.0-20.0); CO2, Blood 26 mmol/L (21-32); Calcium, Blood 8.2 mg/dL (8.5-10.1); Chloride, Blood 114 mmol/L (98-108); Creatinine, Blood 0.65 mg/dL (0.40-1.00); Glomerular Filtration Rate >60 (60-); Glucose, Blood 121 mg/dL (70-99); Magnesium, Blood 2.2 mg/dL (1.6-2.4); Phosphorus, Blood 2.7 mg/dL (2.5-4.9); Sodium, Blood 146 mmol/L (136-145)
[2021-10-27 04:22] LABS: BAND PERCENT MAN 10 % (0-8); BASOPHILS PERCENT MAN 0 % (0-2); EOSINOPHILS PERCENT MAN 0 % (0-6); LYMPHOCYTES ABSOLUTE MAN 1.67 K/mm3 (0.84-5.20); LYMPHOCYTES PERCENT MAN 15 % (21-46); METAMYELOCYTE ABSOLUTE MAN 0.22 K/mm3 (0.00-0.00); METAMYELOCYTE PERCENT MAN 2 % (0-0); MONOCYTES ABSOLUTE MAN 0.55 K/mm3 (0.16-1.47); MONOCYTES PERCENT MAN 5 % (4-13); MYELOCYTE ABSOLUTE MAN 0.33 K/mm3 (0.00-0.00); MYELOCYTE PERCENT MAN 3 % (0-0); NEUTROPHILS ABSOLUTE MAN 8.37 K/mm3 (1.96-9.15); SEG NEUTROPHILS PERCENT MAN 65 % (41-73); TOTAL CELLS COUNTED 100
--- NOTE | 2021-10-27 05:50 | NUR ---
END OF SHIFT SUMMARY: Pt was able to follow commands, gave thumbs up on the right hand (tried to give thumbs up on left but was able to squeeze hand to command), pt also able to wiggle bilateral big toes. Pt continues to be weak. Remains intubated on spontenous mode - PEEP 7 and FiO2 30%, small to moderate white thick secretions from ETT. Pt was febrile overnight, cooling blanket currently on to help bring down pt.'s temperature. Tmax was at 100.0 per temp sensing hyatt probe. BP stable, HR was in the 60's all night. Precedex still infusing. All tubes and drains remain intact. TF was increased to 50 ml/hr with residuals at 100 mL.
--- NOTE | 2021-10-27 09:34 | NUR ---
ASSUMED CARE OF PT@ 0700. PT INTUBATED AND SEDATED. ON SPONTANEOUS VENT SETTINGS /, 30% WITH SATS>90%. PRECEDEX @0.5 MCG/KG/HR. PT OPENS EYES SPONTANEOUSLY, NODS HEAD YES/NO IN RESPONSE TO QUESTIONS. PT DENIES PAIN AT THIS TIME. RIGHT UPPER QUADRANT ILEOSTOMY DRAINING LIQUID BROWN STOOL. MIDLINE WOUND VAC, C/D/I. SEE FULL SHIFT ASSESSMENT.
[2021-10-27 12:11] LABS: Hematocrit 25.1 % (33.0-51.0); Hemoglobin 8.1 g/dL (11.5-16.0)
--- NOTE | 2021-10-27 17:55 | NUR ---
SHIFT SUMMARY PT REMAINS INTUBATED AND SEDATED. VENT SETTING SPONTANEOUS 07/26, 30%, LUNG SOUNDS REMAIN CLEAR/DIM, WITH SMALL AMOUNT OF THICK GÓMEZ/YELLOW SECRETIONS FROM ETT. PT REMAINS SEDATED WITH PRECEDEX @ 0.5 MCG/KG/HR. PT ALERT TO VERBAL STIMULATION. DENIES PAIN T/O SHIFT. 825 ML LIQUID BROWN STOOL FROM ILEOSTOMY. 1250 ML DEBRA URINARY OUTPUT. TMAX 99.6, TREATED WITH TYLENOL PER EMAR. HGB STABLE, WILL RECHECK WITH AM LABS. VITAL HIGH PROTEIN AT GOAL RATE 55 ML/HR, RESIDUALS 75 AND 90 ML REINSTILLED. MIDLINE WOUND VAC IN C/D/I, MINIMAL OUTPUT NOTED IN CANNISTER. PTS SON AT BEDSIDE THIS AFTERNOON. UPDATED WITH PT'S STATUS AND PLAN OF CARE. WILL REPORT TO ONCOMING NURSE.
[2021-10-28 05:07] LABS: BASOPHILS ABSOLUTE AUTO 0.05 K/mm3 (0.00-0.23); BASOPHILS PERCENT AUTO 1 % (0-2); EOSINOPHILS ABSOLUTE AUTO 0.09 K/mm3 (0.00-0.68); EOSINOPHILS PERCENT AUTO 1 % (0-6); Hematocrit 23.9 % (33.0-51.0); Hemoglobin 7.6 g/dL (11.5-16.0); IMMATURE GRAN ABSOLUTE AUTO 0.97 K/mm3 (0.00-0.10); IMMATURE GRAN PERCENT AUTO 10 % (0-1); LYMPHOCYTES PERCENT AUTO 16 % (21-46); MONOCYTES ABSOLUTE AUTO 0.54 K/mm3 (0.16-1.47); MONOCYTES PERCENT AUTO 6 % (4-13); Mean Corpuscular HGB 31.5 pg (26.0-34.0); Mean Corpuscular HGB Conc 31.8 g/dL (31.5-36.5); Mean Corpuscular Volume 99 fL (80-100); Mean Platelet Volume 12.2 fL (9.1-12.4); NEUTROPHILS ABSOLUTE AUTO 6.35 K/mm3 (1.96-9.15); NEUTROPHILS PERCENT AUTO 67 % (41-73); NRBC ABSOLUTE 0.06 K/mm3 (0.00-0.02); NRBC Auto 0.6 /100 WBC (0.0-0.2); Platelet Count 169 K/mm3 (150-400); RDW Coefficient Variation 17.1 % (11.7-14.2); RDW Standard Deviation 61.6 fL (35.1-46.3); Red Blood Cell Count 2.41 M/mm3 (3.80-5.20)
[2021-10-28 05:24] LABS: Albumin, Blood 1.8 g/dL (3.4-5.0); Anion Gap 7 mmol/L (6-16); Blood Urea Nitrogen 30 mg/dL (8-24); CO2, Blood 25 mmol/L (21-32); Calcium, Blood 8.2 mg/dL (8.5-10.1); Chloride, Blood 117 mmol/L (98-108); Creatinine, Blood 0.64 mg/dL (0.40-1.00); Glomerular Filtration Rate >60 (60-); Glucose, Blood 127 mg/dL (70-99); Phosphorus, Blood 2.9 mg/dL (2.5-4.9); Potassium, Blood 3.5 mmol/L (3.5-5.5); Sodium, Blood 149 mmol/L (136-145)
[2021-10-28 05:39] LABS: BAND PERCENT MAN 5 % (0-8); BASOPHILS PERCENT MAN 0 % (0-2); EOSINOPHILS ABSOLUTE MAN 0.09 K/mm3 (0.00-0.68); EOSINOPHILS PERCENT MAN 1 % (0-6); LYMPHOCYTES ABSOLUTE MAN 0.95 K/mm3 (0.84-5.20); LYMPHOCYTES PERCENT MAN 10 % (21-46); MONOCYTES ABSOLUTE MAN 0.28 K/mm3 (0.16-1.47); MONOCYTES PERCENT MAN 3 % (4-13); MYELOCYTE ABSOLUTE MAN 0.38 K/mm3 (0.00-0.00); MYELOCYTE PERCENT MAN 4 % (0-0); NEUTROPHILS ABSOLUTE MAN 7.69 K/mm3 (1.96-9.15); PLASMA CELL ABSOLUTE MAN 0.09 K/mm3 (0.00-0.00); PLASMA CELLS PERCENT MAN 1 % (0-0); SEG NEUTROPHILS PERCENT MAN 76 % (41-73); TOTAL CELLS COUNTED 100
--- NOTE | 2021-10-28 06:03 | NUR ---
END OF SHIFT SUMMARY: No major events overnight. Pt remains on the ventilator on spontenous setting (Fio2 30% PeeP 7), still able to follow commands and appropriately nods/gestures to questions. Has a slight temperature with Tmax at 100 F, gave acetaminophen PO and started the cooling blanket. Precedex down to 0.3 mcg/kg/min. Tubes and drains remains patent (clean dry and intact). q2 hour turns for skin integrity.
--- NOTE | 2021-10-28 08:27 | NUR ---
ASSUMED CARE OF PATIENT: FOLLOWS COMMANDS, ON DEX 0.3, COMPLAINS FO 3/10 ABDOMINAL PAIN, VENTED SPONTANEOUS, LUNGS CLEAR, 350 ILIOSTOMY OUTPUT YELLOW LIQUID, TF RESIDUAL MINIMAL 55, VSS, PULIDO DRAINING TEA COLORED URINE, WILL CONTINUE TO MONITOR.
--- NOTE | 2021-10-28 17:48 | NUR ---
EXTUBATED, CONFUSED, AOX2, DISORIENTED TO TIME/EVENT, REQUIRES FREQUENT REORIENTATION, COMPLAINS ABDOMINAL PAIN 9/10, NONVERBAL PAIN CUES NONE, SOMNOLENT, DILAUDID 0.5MG X3, FENT 25MCG X1 GIVEN WITH NO REPORTED EFFECT, TITRATED DOWN TO RA, SATS WNL, LUNGS CLEAR/DIM, BP HTN 160/170S, 20MG LABETELOL GIVEN, +2 PULSES, NSR 60S, ABDOMEN TENDER, HYPOACTIVE BOWELS, ILIOSTOMY YELLOW LIQUID OUTPUT, ABDOMEN SEROSANGUINOUS OUTPUT, DRESSING CHANGED CDI, PULIDO DEBRA OUTPUT ADEQUATE, WILL REPORT TO NIGHT RN.
--- NOTE | 2021-10-28 19:19 | NUR ---
ASSUMPTION OF CARE PT IS ALERT AND ORIENTED X2, ABLE TO MAKE NEEDS KNOWN. ON ROOM AIR AT THIS TIME, WOUND VAC INTACT W/NO LEAK NOTED. ILLEOSTOMY DRAINING YELLOW LIQUID STOOL. PULIDO CATHETER INTACT PATENT AND DRAINING BELOW THE LEVEL OF THE BLADDER. SR ON THE MONITOR, NORMOTENSIVE. NO COMPLAINTS OR S/S OF ACUTE DISTRESS NOTED AT TIME OF ASSESSMENT.
[2021-10-29 04:32] LABS: BASOPHILS ABSOLUTE AUTO 0.05 K/mm3 (0.00-0.23); BASOPHILS PERCENT AUTO 1 % (0-2); EOSINOPHILS ABSOLUTE AUTO 0.07 K/mm3 (0.00-0.68); EOSINOPHILS PERCENT AUTO 1 % (0-6); Hemoglobin 8.2 g/dL (11.5-16.0); IMMATURE GRAN ABSOLUTE AUTO 0.48 K/mm3 (0.00-0.10); IMMATURE GRAN PERCENT AUTO 6 % (0-1); LYMPHOCYTES ABSOLUTE AUTO 1.36 K/mm3 (0.84-5.20); LYMPHOCYTES PERCENT AUTO 18 % (21-46); MONOCYTES ABSOLUTE AUTO 0.42 K/mm3 (0.16-1.47); MONOCYTES PERCENT AUTO 6 % (4-13); Mean Corpuscular HGB 31.4 pg (26.0-34.0); Mean Corpuscular HGB Conc 31.5 g/dL (31.5-36.5); Mean Corpuscular Volume 100 fL (80-100); Mean Platelet Volume 11.5 fL (9.1-12.4); NEUTROPHILS ABSOLUTE AUTO 5.12 K/mm3 (1.96-9.15); NEUTROPHILS PERCENT AUTO 68 % (41-73); NRBC ABSOLUTE 0.06 K/mm3 (0.00-0.02); NRBC Auto 0.8 /100 WBC (0.0-0.2); Platelet Count 213 K/mm3 (150-400); RDW Coefficient Variation 16.9 % (11.7-14.2); RDW Standard Deviation 60.5 fL (35.1-46.3); Red Blood Cell Count 2.61 M/mm3 (3.80-5.20)
[2021-10-29 04:50] LABS: Anion Gap 6 mmol/L (6-16); Blood Urea Nitrogen 22 mg/dL (8-24); Bun/Creatinine Ratio 38.9 (12.0-20.0); CO2, Blood 26 mmol/L (21-32); Calcium, Blood 8.5 mg/dL (8.5-10.1); Chloride, Blood 117 mmol/L (98-108); Creatinine, Blood 0.57 mg/dL (0.40-1.00); Glomerular Filtration Rate >60 (60-); Glucose, Blood 94 mg/dL (70-99); Potassium, Blood 3.3 mmol/L (3.5-5.5); Sodium, Blood 149 mmol/L (136-145)
--- NOTE | 2021-10-29 05:53 | NUR ---
SHIFT SUMMERY PT HAS HAD NO ACUTE CHANGES OVERNIGHT. SINUS RHYTHEM ON THE MONITOR, BP WNL. PT IS ALERT AND ORIENTED X2. PULIDO CATHETER INTACT PATENT AND DRAINING YELLOW URINE BELOW THE LEVEL OF THE BLADDER. WOUND VAC INTACT W/NO LEAKS TO MIDLINE SURGICAL INCISION DRAINING SEROSANGUINOUS OUTPUT. ILLEOSTOMY STOMA IS PINK WITH YELLOW LIQUID STOOL DRAINING. PT IS ON ROOM AIR, SATS GREATER THAN 90%.
--- NOTE | 2021-10-29 09:10 | NUR ---
INITIAL ASSESSMENT PATIENT ALERT AND ORIENTED TO SELF, PLACE, FAMILY AND FOLLOWING COMMANDS. PATIENT CONFUSED OCCASIONALLY AND STATES NONSENSICAL STATEMENTS AT TIMES. PATIENT DEPRESSED, COOPERATIVE. PATIENT WEAK BUT ABLE TO MOVE ALL EXTREMITIES. NO COMPLAINTS OF PAIN. PATIENT HAS TEMP OF 99.5 DEGREES FAHRENHEIT. PATIENT SATTING 90% AND GREATER ON RA. OCCASIONAL COUGH NOTED. LUNGS CLEAR THROUGHOUT. PATIENT IN SR, HR 70S TO 80S. SBP IN THE 150S. EDEMA NOTED TO EXTREMITIES. ABDOMEN MODERATELY DISTENDED, FIRM, WITH HYPOACTIVE BS NOTED. WOUND VAC TO MIDLINE INCISION DRAINING SEROSANGUINOUS FLUID. ILEOSTOMY TO L ABD DRAINING YELLOW, LIQUID STOOL. STOMA APPEARS WNL. PULIDO DRAINING DEBRA COLORED URINE. PATIENT RECEIVING SCHEDULED LASIX. SKIN PALE AND COOL. MEPILEX TO SORE TO MID BACK. NS TKO. BED LOW, CALL LIGHT IN REACH. WILL CONTINUE TO MONITOR PATIENT FREQUENTLY THROUGHOUT SHIFT.
--- NOTE | 2021-10-29 11:30 | NUR ---
PATIENT HAS TEMP OF 99.6 DEGREES FAHRENHEIT. HR 80S TO 90S. SBP 150S. WOUND VAC DRESSING AND OSTOMY DEVICE CHANGED EARLIER WITH DR. ANTHONY. PATIENT RECEIVED COMPLETE BED BATH.
--- NOTE | 2021-10-29 16:00 | NUR ---
PATIENT HAS TEMP OF 100.0 DEGREES FAHRENHEIT. HR 80S TO 90S. SBP 120S TO 150S. NO OTHER ACUTE CHANGES TO NOTE ON AT THIS TIME. WILL CONTINUE TO MONITOR.
--- NOTE | 2021-10-29 18:01 | NUR ---
SHIFT SUMMARY PATIENT REMAINED MOSTLY ALERT AND ORIENTED. PATIENT HAD TMAX OF 100.0 DEGREES FAHRENHEIT THIS SHIFT. PATIENT RECEIVED PAIN MEDICATIONS FOR COMPLAINT OF ABDOMINAL PAIN OT. PATIENT REMAINED WEAK. PT WORKED WITH PATIENT. PATIENT NEEDS HELP WITH MOTIVATION. PATIENT REMAINED SATTING 90% AND GREATER ON RA. PATIENT REMAINED IN SR, HR 70S TO 90S. SBP 120S TO 160S. ABDOMEN REMAINED MODERATELY DISTENDED, FIRM, WITH HYPOACTIVE BS NOTED. ILEOSTOMY DRAINED 1175 MLS OF LIQUID YELLOW STOOL TODAY. STOMA DEVICE AND WOUND VAC DRESSING CHANGED WITH DR. ANTHONY TODAY. PATIENT STARTED ON FOOD TODAY. PULDIO DRAINED 1800 MLS OF DEBRA COLORED URINE. NO CHANGES TO SKIN NOTED. NS INFUSING TKO. PATIENT HAD COMPLETE BED BATH THIS SHIFT. SON CAME TO VISIT. PATIENT BEING TRANSFERRED TO SURGICAL FLOOR, ROOM 227. SON, AMANDEEP, INFORMED OF TRANSFER.
--- NOTE | 2021-10-29 18:39 | NUR ---
PATIENT SUCCESSFULLY TRANSFERRED TO SURGICAL FLOOR. ALL PATIENT BELONGINGS SENT WITH PATIENT.
--- NOTE | 2021-10-29 19:32 | NUR ---
SHIFT SUMMARY PT ARRIVED TO THE FLOOR RIGHT AT SHIFT CHANGE, PT APPEARED TO BE STABLE AND IN NO ACUTE DISTRESS, TRANSFERRED TO NEW BED VIA SLIDER SHEET WITH NO DIFFICULTIEES. VITALS TAKEN AND ARE STABLE, REPORT GIVEN TO LACY LAZCAON.
--- NOTE | 2021-10-30 04:39 | NUR ---
PT IS ALERT AND ORIENTED TO SELF; VERY FORGETFUL. SPEAKING THRIU THE NIGHT IN HER SLEEP. WHEN AWAKE TALKING TO HER SON IF HE WAS HERE. C/O LEFT LEG PAIN; PT STATES IS CHRONIC FROM ARTHRITIS AND ASKING FOR IBUPROFEN. THRU THE NIGHT DILAUDID, OXY AND TYLENOL WERE GIVEN. INCISION IS INTACT; WOUND VAC FUNTIONING; SS OUTPUT OSTOMY OUTPUT GREEN AND LOSE; PASSING A LOT OF GAS. VSS. PT IS ASKING FOR FOOD. PUDDING WAS GIVEN AND PT ENJOYED.
[2021-10-30 06:19] LABS: BASOPHILS ABSOLUTE AUTO 0.04 K/mm3 (0.00-0.23); BASOPHILS PERCENT AUTO 1 % (0-2); EOSINOPHILS ABSOLUTE AUTO 0.09 K/mm3 (0.00-0.68); EOSINOPHILS PERCENT AUTO 1 % (0-6); Hematocrit 24.5 % (33.0-51.0); Hemoglobin 7.7 g/dL (11.5-16.0); IMMATURE GRAN ABSOLUTE AUTO 0.17 K/mm3 (0.00-0.10); IMMATURE GRAN PERCENT AUTO 2 % (0-1); LYMPHOCYTES ABSOLUTE AUTO 1.78 K/mm3 (0.84-5.20); LYMPHOCYTES PERCENT AUTO 21 % (21-46); MONOCYTES ABSOLUTE AUTO 0.52 K/mm3 (0.16-1.47); MONOCYTES PERCENT AUTO 6 % (4-13); Mean Corpuscular HGB 31.4 pg (26.0-34.0); Mean Corpuscular HGB Conc 31.4 g/dL (31.5-36.5); Mean Corpuscular Volume 100 fL (80-100); NEUTROPHILS ABSOLUTE AUTO 5.92 K/mm3 (1.96-9.15); NEUTROPHILS PERCENT AUTO 69 % (41-73); NRBC ABSOLUTE 0.05 K/mm3 (0.00-0.02); NRBC Auto 0.6 /100 WBC (0.0-0.2); Platelet Count 170 K/mm3 (150-400); RDW Coefficient Variation 16.6 % (11.7-14.2); RDW Standard Deviation 58.5 fL (35.1-46.3); Red Blood Cell Count 2.45 M/mm3 (3.80-5.20); White Blood Cell Count 8.52 K/mm3 (4.00-11.30)
[2021-10-30 06:57] LABS: Anion Gap 5 mmol/L (6-16); Blood Urea Nitrogen 17 mg/dL (8-24); Bun/Creatinine Ratio 27.2 (12.0-20.0); CO2, Blood 28 mmol/L (21-32); Calcium, Blood 7.9 mg/dL (8.5-10.1); Chloride, Blood 117 mmol/L (98-108); Creatinine, Blood 0.63 mg/dL (0.40-1.00); Glomerular Filtration Rate >60 (60-); Glucose, Blood 118 mg/dL (70-99); Potassium, Blood 3.3 mmol/L (3.5-5.5); Sodium, Blood 150 mmol/L (136-145); Triglycerides 266 mg/dL (30-160)
--- NOTE | 2021-10-30 15:48 | NUR ---
SHIFT SUMMARY POD15 R GIOVANNA COLECTOMY, POD10 ILEOCECAL RESECTION, POD8 ABD WASHOUT c ILIOSTOMY. A/O X4, VSS, TOLERATING PO, PULIDO IN PLACE, NO BM THIS SHIFT. PATIENT HAS BEEN REFUSING THERAPY SERVICES TODAY, STATES SHE IS UNABLE TO DO ANYTHING AND THAT SHE IS UNABLE TO LIFT HER ARMS OFF THE BED. SHE HAS BEEN UNWILLING TO BE REPOSITIONED, SHE REPORTS PAIN ONLY IN HER LEGS AND STATES THAT HER PAIN IS A 10 OR HIGHER ON A 0-10 PAIN SCALE, FACE SCALE WAS ALSO USED FOR EACH PAIN MEDICATION ADMINISTRATION. THIS RN AND PT/OT ENCOURAGED HER TO PARTICIPATE IN THERAPY AND TO MOVE MUCH SHE COULD PHYSICALLY TO HELP BUILD HER STRENGTH AND PREVENT GETTING ANY PRESSURE ULCERS, EDUCATION WAS PROVIDED ON RISKS OF PRESSURE ULCERS AND WHAT CAN HAPPEN IF SHE WAS TO GET ONE. DESPITE THIS, SHE CONTINUES TO REFUSE TO ENGAGE WITH ANY TYPE OF THERAPY. PAIN REPORTED BY THE PATIENT IS ONLY IN HER LEGS R/T CHRONIC ARTHRITIS, DENIES PAIN IN ABD R/T SURGERY. PT IS ABLE TO FEED HERSELF BUT HAS ONLY WANTED PUDDING, ICE CREAM, AND JUICE. PT EDUCATED ON IMPORTANCE OF GOOD NUTRITION AND PROTEIN FOR RECOVERY. WILL CONTINUE TO ENCOURAGE ACTIVITY AND PO INTAKE. CALL LIGHT IN REACH, WILL REPORT TO ONCOMING LACY RN.
--- NOTE | 2021-10-30 18:16 | NUR ---
Attempted to make a visit today to meet this pt, but she fell asleep as soon as we began to talk, and the bedside nurse tells me the patient has been minimally responsive to anything offered, including therapy. Hopeful for a better visit tomorrow.
--- NOTE | 2021-10-30 19:16 | NUR ---
WOUND VAC NEW CONTAINER PLACED TO [place].
[2021-10-31 04:21] LABS: BASOPHILS ABSOLUTE AUTO 0.06 K/mm3 (0.00-0.23); BASOPHILS PERCENT AUTO 1 % (0-2); EOSINOPHILS ABSOLUTE AUTO 0.09 K/mm3 (0.00-0.68); EOSINOPHILS PERCENT AUTO 1 % (0-6); Hematocrit 27.3 % (33.0-51.0); Hemoglobin 8.6 g/dL (11.5-16.0); IMMATURE GRAN PERCENT AUTO 1 % (0-1); LYMPHOCYTES ABSOLUTE AUTO 1.69 K/mm3 (0.84-5.20); LYMPHOCYTES PERCENT AUTO 22 % (21-46); MONOCYTES ABSOLUTE AUTO 0.49 K/mm3 (0.16-1.47); MONOCYTES PERCENT AUTO 6 % (4-13); Mean Corpuscular HGB 30.9 pg (26.0-34.0); Mean Corpuscular HGB Conc 31.5 g/dL (31.5-36.5); Mean Corpuscular Volume 98 fL (80-100); Mean Platelet Volume 11.5 fL (9.1-12.4); NEUTROPHILS ABSOLUTE AUTO 5.24 K/mm3 (1.96-9.15); NEUTROPHILS PERCENT AUTO 68 % (41-73); NRBC ABSOLUTE 0.04 K/mm3 (0.00-0.02); NRBC Auto 0.5 /100 WBC (0.0-0.2); Platelet Count 176 K/mm3 (150-400); RDW Coefficient Variation 16.4 % (11.7-14.2); RDW Standard Deviation 57.6 fL (35.1-46.3); Red Blood Cell Count 2.78 M/mm3 (3.80-5.20); White Blood Cell Count 7.67 K/mm3 (4.00-11.30)
--- NOTE | 2021-10-31 04:29 | NUR ---
SHIFT SUMMARY A/O 2-3, FREQUENTLY YELLS OUT AND NEEDS REDIRECTED. C/O PAIN TO LLE, MEDICATED PER EMAR. MIDLINE WOUND VAC AND PULIDO PATENT AND DRAINING. ILEOSTOMY TO RLQ NEEDS FREQUENT BURPING, SMALL AMOUNT OF OUTPUT. VSS, NO ACUTE CHANGES AT THIS TIME. BED IN LOWEST POSITION WITH CALL LIGHT IN REACH. WILL CONTINUE TO MONITOR AND REPORT TO ONCOMING RN.
[2021-10-31 04:51] LABS: Anion Gap 7 mmol/L (6-16); Blood Urea Nitrogen 11 mg/dL (8-24); Bun/Creatinine Ratio 20.2 (12.0-20.0); CO2, Blood 27 mmol/L (21-32); Calcium, Blood 8.4 mg/dL (8.5-10.1); Chloride, Blood 110 mmol/L (98-108); Creatinine, Blood 0.55 mg/dL (0.40-1.00); Glomerular Filtration Rate >60 (60-); Glucose, Blood 93 mg/dL (70-99); Prealbumin, Blood 21.2 mg/dL (20.0-40.0); Sodium, Blood 144 mmol/L (136-145)
--- NOTE | 2021-10-31 18:10 | NUR ---
SHIFT SUMMARY: CHOLECTOMY/ILLEOSTOMY PATIENT IS ALERT AND ORIENTED X1-2 AND OFTEN RAMBLES CONFUSING SENTENCES. PAIN IS MANAGED WITH 1 OXY PO. PATIENT TOLERATES SMALL AMOUNTS OF PO INTAKE BUT STATES "I'M TOO WEAK TO USE THE UTENSILS". PATIENT LOVES THE PO LIQUACEL PROTEIN. PATIENT WAS ABLE TO SIT AT THE EDGE OF THE BED WITH PT BUT FELL BACKWARDS ONTO THE BED WHEN TRYING TO STAND UP. PATIENT IS TO BE A LIFT ONLY WITH 2 PERSON MAX ASSIST. CALL LIGHT WITHIN REACH. THE PLAN IS TO CONTINUE TO ENCOURAGE PATIENT TO KEEP MOVING IN ORDER FOR HER TO BE ABLE TO GO HOME. PATIENT REPORTED TO SON THAT SHE "ISN'T GIVING UP YET!".
[2021-11-01 04:50] LABS: BASOPHILS ABSOLUTE AUTO 0.05 K/mm3 (0.00-0.23); BASOPHILS PERCENT AUTO 1 % (0-2); EOSINOPHILS ABSOLUTE AUTO 0.13 K/mm3 (0.00-0.68); EOSINOPHILS PERCENT AUTO 2 % (0-6); Hematocrit 28.8 % (33.0-51.0); Hemoglobin 8.7 g/dL (11.5-16.0); IMMATURE GRAN ABSOLUTE AUTO 0.06 K/mm3 (0.00-0.10); IMMATURE GRAN PERCENT AUTO 1 % (0-1); LYMPHOCYTES ABSOLUTE AUTO 1.87 K/mm3 (0.84-5.20); LYMPHOCYTES PERCENT AUTO 25 % (21-46); MONOCYTES ABSOLUTE AUTO 0.49 K/mm3 (0.16-1.47); MONOCYTES PERCENT AUTO 7 % (4-13); Mean Corpuscular HGB 30.6 pg (26.0-34.0); Mean Corpuscular HGB Conc 30.2 g/dL (31.5-36.5); Mean Corpuscular Volume 101 fL (80-100); Mean Platelet Volume 11.3 fL (9.1-12.4); NEUTROPHILS PERCENT AUTO 65 % (41-73); NRBC ABSOLUTE 0.02 K/mm3 (0.00-0.02); NRBC Auto 0.3 /100 WBC (0.0-0.2); Platelet Count 194 K/mm3 (150-400); RDW Coefficient Variation 16.5 % (11.7-14.2); RDW Standard Deviation 59.5 fL (35.1-46.3); Red Blood Cell Count 2.84 M/mm3 (3.80-5.20)
[2021-11-01 05:19] LABS: Anion Gap 10 mmol/L (6-16); Blood Urea Nitrogen 10 mg/dL (8-24); Bun/Creatinine Ratio 18.6 (12.0-20.0); CO2, Blood 23 mmol/L (21-32); Calcium, Blood 8.4 mg/dL (8.5-10.1); Chloride, Blood 105 mmol/L (98-108); Creatinine, Blood 0.54 mg/dL (0.40-1.00); Glomerular Filtration Rate >60 (60-); Glucose, Blood 89 mg/dL (70-99); Potassium, Blood 3.2 mmol/L (3.5-5.5); Sodium, Blood 138 mmol/L (136-145)
--- NOTE | 2021-11-01 08:22 | NUR ---
SUMMARY PT CONT WITH DECONDITIONING AND NEEDS ENC FOR MOTIVATION.CONT WITH RAMBLING AT TIMES INAPPROPRIATE TO SITUATION. REASSURED AND REORIENTED ABLE.
--- NOTE | 2021-11-01 15:13 | NUR ---
CHANGED WOUND VAC PER ORDERS.
--- NOTE | 2021-11-01 17:00 | NUR ---
SUMMARY NO ACUTE CHANGES T/O SHIFT. TRANSFERRED PT WITH CEILING LIFT FROM BED TO RECLINER. SAT UP FOR APPROXIMATELY TWO HOURS. THEN USED LIFT TO TRANSFER BACK TO BED. PULIDO CATH DC'D THIS SHIFT, PT VOIDING USING BEDPAN. CHANGED WOUND VAC TO ABDOMEN PER ORDERS. IV FLUIDS INFUSING PER ORDERS. CALL LIGHT AND PHONE WITHIN REACH.
[2021-11-02 04:43] LABS: Hematocrit 27.6 % (33.0-51.0); Hemoglobin 8.8 g/dL (11.5-16.0); Mean Corpuscular HGB 31.2 pg (26.0-34.0); Mean Corpuscular HGB Conc 31.9 g/dL (31.5-36.5); Mean Corpuscular Volume 98 fL (80-100); Mean Platelet Volume 11.5 fL (9.1-12.4); Platelet Count 203 K/mm3 (150-400); RDW Coefficient Variation 16.3 % (11.7-14.2); RDW Standard Deviation 55.8 fL (35.1-46.3); Red Blood Cell Count 2.82 M/mm3 (3.80-5.20); White Blood Cell Count 8.34 K/mm3 (4.00-11.30)
--- NOTE | 2021-11-02 04:44 | NUR ---
Pt is in bed at this time where she remains during the night and is resting comfortably. No change in her condition or behavior. She is alert and oriented to herself, fluctuaton in her orientation noted consistent with her baseline. She denies pain at this time and was medicated as indicated. She is assisted with care and adls, assisted with bathroom and toileting needs. Midline dressing is in place and is patent. Wound vac is in place and is functioning well. No problem noted with her ileostomy. Pt assisted with position change to enhance comfort, call light given to her and encouraged to call for help when assistance is needed as she is monitored.
[2021-11-02 06:06] LABS: Alanine Aminotransfer (ALT/SGP 34 U/L (12-78); Albumin, Blood 2.1 g/dL (3.4-5.0); Albumin/Globulin Ratio 0.6 (0.8-1.8); Alk Phos 115 U/L (50-136); Anion Gap 9 mmol/L (6-16); Aspartate Aminotrans (AST/SGOT 25 U/L (12-37); Bilirubin, Total 1.2 mg/dL (0.1-1.0); Blood Urea Nitrogen 10 mg/dL (8-24); Bun/Creatinine Ratio 18.2 (12.0-20.0); CO2, Blood 25 mmol/L (21-32); Calcium, Blood 8.3 mg/dL (8.5-10.1); Chloride, Blood 101 mmol/L (98-108); Creatinine, Blood 0.55 mg/dL (0.40-1.00); Ferritin, Serum 301 ng/mL (8-252); Globulin, Blood 3.6 g/dL (2.2-4.0); Glomerular Filtration Rate >60 (60-); Glucose, Blood 89 mg/dL (70-99); Iron Serum 28 ug/dL (50-170); Percent Saturation 16.6 % (15.0-50.0); Potassium, Blood 3.1 mmol/L (3.5-5.5); Sodium, Blood 135 mmol/L (136-145); Total Iron Binding Capacity 169 ug/dL (250-450); Total Protein, Blood 5.7 g/dL (6.4-8.2)
--- NOTE | 2021-11-02 17:05 | NUR ---
SHIFT SUMMARY PATIENT ALERT BUT OCCASIONALLY CONFUSED AND FORGETFUL THROUGHOUT SHIFT. TOLERATING REGULAR DIET AND FLUIDS. INCONTINENT OF URINE THIS SHIFT. SALINE LOCKED AND IV FLUIDS DC'D. PICC LINE CAPS CHANGED AND FLUSHING WELL. WOUND VAC INTACT WITH MODERATE OUTPUT. ILEOSTOMY MODERATE OUTPUT OF LIQUID STOOL AND GAS. STOMA VISUALIZED AND INTACT. PATIENT UP TO RECLINER DURING AFTERNOON. TRANSFERRED WITH CEILING LIFT. MOTIVATION IMPROVED THIS SHIFT AND WORKED WELL WITH PHYSICAL THERAPY. OBESE WITH GENERALIZED WEAKNESS, UNABLE TO STAND OR SIT UP IN BED BY HERSELF. PLAN FOR DISCHARGE TO SNF WHEN BED AVAILABLE. WILL REPORT TO EARLY CHILDHOOD ASSOCIATE TEACHER RN.
--- NOTE | 2021-11-03 05:13 | NUR ---
SHIFT SUMMARY SEAN IS S/P HEMICOLECTOMY WITH OSTOMY IN RUQ. STOMA IS BEEFY RED, DRAINING LIQUID BROWN STOOL. INCONTINENT IN DEPENDS. SEAN HAS A MIDLINE ABD INCISION COVERED WITH DRESSING AND WOUND VAC WITH POSITIVE PRESSURE, COMPRESSED. MODERATE AMOUNT OF SANGUINOUS DRAINAGE. NO DRAINAGE FROM WOUND NOTED. PICC LINE TO MARLEEN, FLUSHES WELL BUT DOESN'T DRAW BLOOD. ROOM AIR. PT IS MAX ASSIST, WITH GREEN LIFT SHEET IN PLACE. FREQUENT POSITION CHANGES, LEFT LYING, RIGHT LYING, SUPINE. PT HAS CHILD LIKE AFFECT, AND DEMONSTRATES LACK OF MOTIVATION TO PARTICIPATE IN PLAN OF CARE. REQUIRES DIRECT CUEING TO HOLD MEDICINE CUP OR TO HOLD HER WATER TO DRINK. INSTEAD OF USING CALL LIGHT, WILL CALL OUT FROM HER ROOM. "NURSE!" REPORTS SHARP ABD PAIN, THEN STATES, "THIS HAPPENS ALL THE TIME, I EAT SPICY FOOD", THEN FALLS ASLEEP. REPORTED HEADACHE, RECEIVED PRN TYLENOL. BED ALARM ON FOR SAFETY.
[2021-11-03 05:32] LABS: Anion Gap 8 mmol/L (6-16); Blood Urea Nitrogen 9 mg/dL (8-24); Bun/Creatinine Ratio 16.4 (12.0-20.0); CO2, Blood 24 mmol/L (21-32); Calcium, Blood 8.5 mg/dL (8.5-10.1); Chloride, Blood 102 mmol/L (98-108); Creatinine, Blood 0.55 mg/dL (0.40-1.00); Glomerular Filtration Rate >60 (60-); Glucose, Blood 104 mg/dL (70-99); Potassium, Blood 3.9 mmol/L (3.5-5.5); Sodium, Blood 134 mmol/L (136-145)
--- NOTE | 2021-11-04 06:21 | NUR ---
SHIFT SUMMARY SEAN C/O HEADACHE AND PAIN IN HER LEFT LEG - RECEIVED PRN ROXICODONE AND TYLENOL. 2 PERSON MAX ASSIST WITH LIFT SHIFT. PT CAN BECOME CONFUSED AND REQUIRES FREQUENT REORIENTATION. PT SLIGHTLY ANXIOUS, WITH MANY REQUESTS AND CALLS THROUGH OUT THE NIGHT FOR REPOSITIONING, SNACKS, WANTING TO CALL HER NEIGHBORS AT 2300. SEAN IS ANXIOUS TO GO HOME. RN REPLACED OSTOMY SITE - DRAINING LIQUID STOOL. STOMA IS BEEFY RED. WOUND VAC IN PLACE WITH DRESSING C/D/I, COMPRESSED TO 70 MMHG POSITIVE PRESSURE. PT INCONTINENT IN ATTENDS. ROOM AIR. PICC LINE IN [facility] FLUSHES WELL, CAPS CHANGED. WILL CONTINUE TO MONITOR UNTIL GIVING REPORT TO DAY RN.
--- NOTE | 2021-11-05 05:18 | NUR ---
PT IS ALERT TO SELF. CONFUSED MOST OF THE TIME. TAKING PILLS WELL; PT LIKES CHOCOLATE PUDDING WITH HER PILLS. C/O PAIN ONCE; LEFT LEG PAIN. NO C/O SURGICAL PAIN. OSTOMY INTACT; LOOSE STOOL. WOUND VAC FUNCTIONING; SS OUTPUT. BRIEF FOR URINE. PT WAS ASKING TO HELP HER TO GET OUT OF HTE BED; PT WAS ENCOURAGE TO WORK WITH PT TODAY TO [facility].
--- NOTE | 2021-11-05 10:08 | NUR ---
FOUND PT'S DRINK ON FLOOR/PT STATED THREW IT BECAUSE "I WAS MAD" EDUCATED PT THAT NOT ACCEPTABLE DUE TO SAFETY ISSUE. PT STATED WAS MAD BECAUSE SHE WAS PLACED IN CHAIR. EDUCATED THAT SHE NEEDS TO BUILD STRENGTH BY SITTING UP IF WANTS TO GO HOME.
--- NOTE | 2021-11-05 14:21 | NUR ---
PT'S SON AT BEDSIDE.
--- NOTE | 2021-11-05 15:19 | NUR ---
TURNED OVER CARE TO CYNDY Harris RN.
--- NOTE | 2021-11-05 15:24 | NUR ---
REPORT RECEIVED FROM NENO NARANJO. ASSUMED PT CARE
--- NOTE | 2021-11-05 18:09 | NUR ---
SUMMARY: NO CHANGE SINCE RECEIVED REPORT. PT REQUESTED REPOSITIONING SEVERAL TIMES AND HELPED ONTO BEDPAN USING CEILING LIFT. VSS, A/O, USING CALL LIGHT. WILL REPORT TO LACY RN.
[2021-11-06 05:15] LABS: Hematocrit 28.8 % (33.0-51.0); Hemoglobin 9.1 g/dL (11.5-16.0); Mean Corpuscular HGB 30.7 pg (26.0-34.0); Mean Corpuscular HGB Conc 31.6 g/dL (31.5-36.5); Mean Corpuscular Volume 97 fL (80-100); Mean Platelet Volume 11.1 fL (9.1-12.4); Platelet Count 282 K/mm3 (150-400); RDW Coefficient Variation 16.8 % (11.7-14.2); RDW Standard Deviation 57.9 fL (35.1-46.3); Red Blood Cell Count 2.96 M/mm3 (3.80-5.20); White Blood Cell Count 5.03 K/mm3 (4.00-11.30)
--- NOTE | 2021-11-06 05:37 | NUR ---
MEDICATED WITH ROXICODONE 5MG X'S 2 FOR GENERALIZED PAIN, EFFECTIVE RELIEF. NEEDS ALOT OF ENCOURAGEMENT. CONTINENT OF URINE THROUGH NIGHT, 1 ASSIST FOR TURNS WITH PATIENTS HELP. ILEOSTOMY PATENT DRAINING SOFT/ WATERY STOOL. CONFUSED AT TIMES DURING NIGHT. RESPIRATIONS EVEN AND UNLABORED. SAFETY MAINTAINED, CALL BALLESTEROS IN REACH.
[2021-11-06 05:49] LABS: Anion Gap 9 mmol/L (6-16); Blood Urea Nitrogen 13 mg/dL (8-24); CO2, Blood 28 mmol/L (21-32); Calcium, Blood 9.2 mg/dL (8.5-10.1); Chloride, Blood 96 mmol/L (98-108); Creatinine, Blood 0.56 mg/dL (0.40-1.00); Glomerular Filtration Rate >60 (60-); Glucose, Blood 97 mg/dL (70-99); Potassium, Blood 3.8 mmol/L (3.5-5.5); Sodium, Blood 133 mmol/L (136-145)
[2021-11-06] MEDS ORDERED: CITALOPRAM HBR10 MG PO (11:49)
[2021-11-06] MEDS ORDERED: OXYC5 PO (11:50)
[2021-11-06] MEDS ORDERED: LIQUACEL PO (11:59)
--- NOTE | 2021-11-06 11:59 | NUR ---
Threat Assessment Team received Maladaptive & Disruptive Consult order. Reviewed chart and spoke with nursing staff. Patient has had episodes of confusion and aggression. She was supposed to be discharged today to SNF but refused. The plan is she will be discharged home with her son today with Home Health to follow up. Considering organic issue (confusion) she is not currently appropriate for a behavioral contract. Patient is currently cooperating with care and discharge is pending shortly. Staff had spoken with her prior to the consult about her behavior. I asked Rosmery Blankenship, the RN, to call me if there were additional behavior issues prior to discharge.
[2021-11-06] MEDS ORDERED: ONDA4ODT MM (12:00)
--- NOTE | 2021-11-06 12:05 | NUR ---
Received referral from nurse healthcare management (Leona Francis) on 11/06/2021. Patient is to discharge today- 11/06/2021 with orders for home health and elected [facility]. Met with patient to further discuss the above. Patient is agreeable to the above. Discussed homebound status definition with patient. Patient verbalized understanding. Discussed what home health is vs what it is not (in home caregivers/housekeeping). Patient verbalized understanding. Discussed the next steps in the process of an initial assessment to determine frequency of visits. Again patient verbalized understanding. Offered a chance for patient to ask questions regarding the above of which there were none. Gathered all supporting documentation for referral (face sheet, face to face, med list, H&P, and most recent PT assessment) and sent to [facility] for review. No further interventions required. Suzie Santillan Referral Liaison
--- NOTE | 2021-11-06 16:57 | NUR ---
TURNED OVER CARE TO BRAN Montez RN
--- NOTE | 2021-11-06 18:11 | NUR ---
PATIENT CURRENTLY EATING HER MEAL IN BED. NO SIGNS OR SYMPTOMS ACUTE DISTRESS NOTED. ASSUMED CARE OF PATIENT AT 1730. MEDICATED FOR PAIN PER ORDERS SEE EMAR. CHARGE NURSE REMOVED PICC LINE. AWAITING TRANSPORT TO ARRIVE FOR PATIENT TO [place].
[2021-11-07] MEDS ORDERED: SUCR1 PO (23:51)
== END 2021-11-06 19:09 | DRG 853 ==
LOC: ER 04:46 → ERHOLD 07:41 → ICUE 07:41 → SURS 07:41 → ICUE 10-20 06:37 → SURS 10-29 18:45
PROVIDERS: Internal Medicine; Internal Medicine Critical Care Medicine; Student in an Organized Health Care Education/Training Program; Surgery; ADMIT Family Medicine
PROC: 0DTF0ZZ Resection of Right Large Intestine, Open Approach (ICD-10-PCS; principal; 2021-10-15 10:30)
PROC: 0WUF0JZ Supplement Abdominal Wall with Synthetic Substitute, Open Approach (ICD-10-PCS; 2021-10-15 10:30)
PROC: 0D1B0Z4 Bypass Ileum to Cutaneous, Open Approach (ICD-10-PCS; 2021-10-22)
PROC: 0WPF0JZ Removal of Synthetic Substitute from Abdominal Wall, Open Approach (ICD-10-PCS; 2021-10-22 12:00)
PROC: 0DBB0ZZ Excision of Ileum, Open Approach (ICD-10-PCS; 2021-10-22 12:00)
PROC: 3E033XZ Introduction of Vasopressor into Peripheral Vein, Percutaneous Approach (ICD-10-PCS; 2021-10-23)
DX: A41.51 Sepsis due to Escherichia coli [E. coli] (principal); R65.21 Severe sepsis with septic shock; K63.1 Perforation of intestine (nontraumatic); K65.9 Peritonitis, unspecified; J95.821 Acute postprocedural respiratory failure; K43.7 Other and unspecified ventral hernia with gangrene; K43.6 Other and unspecified ventral hernia with obstruction, without gangrene; E87.1 Hypo-osmolality and hyponatremia; Z68.42 Body mass index [BMI] 45.0-49.9, adult; N17.9 Acute kidney failure, unspecified; D62 Acute posthemorrhagic anemia; G93.49 Other encephalopathy; F05 Delirium due to known physiological condition; E03.9 Hypothyroidism, unspecified; F32.A Depression, unspecified; D63.8 Anemia in other chronic diseases classified elsewhere; K21.9 Gastro-esophageal reflux disease without esophagitis; E66.01 Morbid (severe) obesity due to excess calories; E88.09 Other disorders of plasma-protein metabolism, not elsewhere classified; E83.42 Hypomagnesemia; T50.2X5A Adverse effect of carbonic-anhydrase inhibitors, benzothiadiazides and other diuretics, initial encounter; E83.39 Other disorders of phosphorus metabolism; E78.5 Hyperlipidemia, unspecified; E87.6 Hypokalemia; F41.9 Anxiety disorder, unspecified; Z98.890 Other specified postprocedural states; Z90.49 Acquired absence of other specified parts of digestive tract; Z88.5 Allergy status to narcotic agent; Z88.6 Allergy status to analgesic agent
CPT/HCPCS: 0241U; 36415; 36430; 36569; 36600; 51702; 70450; 71045; 71260; 74177; 80048; 80053; 80069; 81001; 82248; 82607; 82728; 82746; 82803; 82947; 83540; 83550; 83605; 83690; 83735; 84100; 84134; 84295; 84443; 84478; 84484; 85014; 85018; 85025; 85027; 85610; 85730; 86140; 86850; 86900; 86901; 86923; 87040; 87070; 87077; 87186; 87205; 88307; 93005; 93010; 93306; 94002; 94003; 94640; 94760; 96365; 96366; 96375; 97110; 97116; 97161; 97166; 97168; 97530; 97535; 99285-25; A9270; C1751; C1781; C9113; J0610; J0690; J1170; J1650; J1885; J1940; J2060; J2250; J2370; J2405; J2543; J2704; J2765; J3010; J3411; J3475; J3480; J7030; J7050; J7060; J7070; J7120; P9016; P9046; Q9967

== ENCOUNTER 2021-11-07 12:26 | Observation (INO) | payer OTHER ==
[~2021-11-07] VITALS: Ht 157.5 cm; Wt 113.4 kg
[~2021-11-07 12:26] MED LIST changes: +ASCO500 PO; +CENTRUM SILVER1 EAC2 PO; +CITALOPRAM HBR10 MG PO; +FISH OIL 1,2001 EAC1 PO; +LIQUACEL PO; +ONDA4ODT MM; +OXYC5 PO; +ROSU10TA PO; +SUCRALFATE PO; +Vitamin B Comple1 EA PO; +Vitamin D1000 UNI1 PO; +ZINC50 M3 PO
[2021-11-07 15:08] LABS: Source, Urine Clean Catch
[2021-11-07 15:15] LABS: Appearance, Urine Clear (Clear); Bilirubin, Urine Neg (Neg); Blood, Urine Neg (Neg); Color, Urine Yellow (P-Yellow); Glucose Qualitative, Urine Neg (Neg); Ketones, Urine 2+ (Neg); Leukocyte Esterase, Urine Neg (Neg); Nitrite, Urine Neg (Neg); Protein, Urine Neg (Neg); Urobilinogen, Urine NORM (Normal)
[2021-11-07 15:26] LABS: BASOPHILS ABSOLUTE AUTO 0.04 K/mm3 (0.00-0.23); BASOPHILS PERCENT AUTO 1 % (0-2); EOSINOPHILS ABSOLUTE AUTO 0.05 K/mm3 (0.00-0.68); EOSINOPHILS PERCENT AUTO 1 % (0-6); Hematocrit 33.2 % (33.0-51.0); Hemoglobin 10.2 g/dL (11.5-16.0); IMMATURE GRAN ABSOLUTE AUTO 0.05 K/mm3 (0.00-0.10); IMMATURE GRAN PERCENT AUTO 1 % (0-1); LYMPHOCYTES ABSOLUTE AUTO 1.48 K/mm3 (0.84-5.20); LYMPHOCYTES PERCENT AUTO 26 % (21-46); MONOCYTES ABSOLUTE AUTO 0.95 K/mm3 (0.16-1.47); MONOCYTES PERCENT AUTO 17 % (4-13); Mean Corpuscular HGB 30.5 pg (26.0-34.0); Mean Corpuscular HGB Conc 30.7 g/dL (31.5-36.5); Mean Corpuscular Volume 99 fL (80-100); Mean Platelet Volume 10.8 fL (9.1-12.4); NEUTROPHILS PERCENT AUTO 55 % (41-73); Platelet Count 292 K/mm3 (150-400); RDW Coefficient Variation 16.8 % (11.7-14.2); RDW Standard Deviation 59.2 fL (35.1-46.3); Red Blood Cell Count 3.34 M/mm3 (3.80-5.20); White Blood Cell Count 5.67 K/mm3 (4.00-11.30)
[2021-11-07 15:30] LABS: Alanine Aminotransfer (ALT/SGP 26 U/L (12-78); Albumin, Blood 2.3 g/dL (3.4-5.0); Albumin/Globulin Ratio 0.5 (0.8-1.8); Alk Phos 117 U/L (50-136); Anion Gap 10 mmol/L (6-16); Aspartate Aminotrans (AST/SGOT 27 U/L (12-37); Bilirubin, Total 0.7 mg/dL (0.1-1.0); Blood Urea Nitrogen 13 mg/dL (8-24); Bun/Creatinine Ratio 23.7 (12.0-20.0); CO2, Blood 24 mmol/L (21-32); Calcium, Blood 9.3 mg/dL (8.5-10.1); Chloride, Blood 100 mmol/L (98-108); Creatinine, Blood 0.55 mg/dL (0.40-1.00); Globulin, Blood 4.3 g/dL (2.2-4.0); Glomerular Filtration Rate >60 (60-); Glucose, Blood 92 mg/dL (70-99); Potassium, Blood 3.9 mmol/L (3.5-5.5); Sodium, Blood 134 mmol/L (136-145); Total Protein, Blood 6.6 g/dL (6.4-8.2)
[2021-11-07] MEDS ORDERED: SUCR1 PO (23:51)
--- NOTE | 2021-11-08 06:28 | NUR ---
SHIFT SUMMARY: PT IS A/OX3. HER OSTOMY HAS SMALL, SOFT & PASTY OUTPUT; IT DOES PUT OUT MODERATE GAS WELL. SHE DOES HAVE A BULKY DRESSING IN PLACE THAT IS CDI--CHANGED 11/07. SHE RECENTLY DC'D (11/06) AND BACK D/T UNABLE TO TAKE CARE OF SELF.
--- NOTE | 2021-11-08 16:49 | NUR ---
SHIFT SUMMARY THE PATIENT IS ALERT AND ORIENTED X3, CAN BE FORGETFUL AT TIMES. THE PATIENT WORKED WITH THERAPY THIS SHIFT. THE PATIENT WAS UNABLE TO STAND. PATIENT KEPT EXPRESSING THE NEED TO FIND OUT WHAT'S WRONG WITH THEIR LEGS. PATIENT NOW HAS A WOUND VAC FOR INCISION ON ABD. OSTOMY ON RIGHT SIDE PATENT AND DRAINING. A VENOUS DUPLEX WAS DONE THIS SHIFT. THE PATIENT WAS MEDICATED X2 FOR PAIN THIS SHIFT. PATIENT IS NOT THRILLED ABOUT GOING TO A SNF FOR REHABILLITATION. PATIENT HAS BEEN CONTINENT OF URINE THIS SHIFT WITH BED RIGGS. WILL CONTINUE TO CARE FOR UNTIL SHIFT REPORT IS GIVEN TO ONCOMING NURSE.
--- NOTE | 2021-11-09 02:37 | NUR ---
PROGRESS NOTE: 0215 PT HAD C/O OF CX PAIN/DISCOMFORT. VITAL SIGNS WERE TAKEN AND WITHIN NORMAL LIMITS. PT WAS CALM AND NOT IN DISTRESS. THE ATTENDING WAS NOTIFIED AND NO NEW ORDERS WERE PUT IN. THE PT WAS REPOSITIONED AND STATED RELIEF OF ANY CHEST PAIN OR DISCOMFORT. CALL LIGHT IS WITHIN REACH AND WE'LL CONTINOR TO MONITOR.
--- NOTE | 2021-11-09 05:32 | NUR ---
SHIFT SUMMARY: PT IS A/OX2-3. WOUND VAC IS IN PLACE AND FUNCTIONING PROPERLY. OSTOMY HAS SMALL-MODERATE OUTPUT W/ MODERATE GAS. PTs C/O OF PAIN WERE IN HER LEFT LEG. SHE DID HAVE C/O OF CX PAIN/DISCOMFORT, WHICH RESOLVED. THE HOSPITALIST WAS NOTIFIED OF THE EVENT. NO OTHER CHANGES TO REPORT. CALL LIGHT IS WITHIN REACH.
[2021-11-09] MEDS ORDERED: XARELTO15 MG PO (13:43)
[2021-11-09] MEDS ORDERED: ACET325 PO (13:43)
[2021-11-09] MEDS ORDERED: XARELTO20 MG PO (13:44)
[2021-11-10 04:26] LABS: BASOPHILS ABSOLUTE AUTO 0.05 K/mm3 (0.00-0.23); BASOPHILS PERCENT AUTO 1 % (0-2); EOSINOPHILS ABSOLUTE AUTO 0.16 K/mm3 (0.00-0.68); EOSINOPHILS PERCENT AUTO 3 % (0-6); Hematocrit 33.6 % (33.0-51.0); Hemoglobin 10.2 g/dL (11.5-16.0); IMMATURE GRAN ABSOLUTE AUTO 0.07 K/mm3 (0.00-0.10); IMMATURE GRAN PERCENT AUTO 1 % (0-1); LYMPHOCYTES ABSOLUTE AUTO 1.97 K/mm3 (0.84-5.20); LYMPHOCYTES PERCENT AUTO 39 % (21-46); MONOCYTES PERCENT AUTO 16 % (4-13); Mean Corpuscular HGB 29.7 pg (26.0-34.0); Mean Corpuscular HGB Conc 30.4 g/dL (31.5-36.5); Mean Corpuscular Volume 98 fL (80-100); Mean Platelet Volume 10.4 fL (9.1-12.4); NEUTROPHILS ABSOLUTE AUTO 2.06 K/mm3 (1.96-9.15); NEUTROPHILS PERCENT AUTO 40 % (41-73); Platelet Count 335 K/mm3 (150-400); RDW Coefficient Variation 16.5 % (11.7-14.2); Red Blood Cell Count 3.43 M/mm3 (3.80-5.20); White Blood Cell Count 5.11 K/mm3 (4.00-11.30)
[2021-11-10 04:52] LABS: Anion Gap 8 mmol/L (6-16); Blood Urea Nitrogen 11 mg/dL (8-24); Bun/Creatinine Ratio 18.5 (12.0-20.0); CO2, Blood 28 mmol/L (21-32); Chloride, Blood 99 mmol/L (98-108); Creatinine, Blood 0.59 mg/dL (0.40-1.00); Glomerular Filtration Rate >60 (60-); Glucose, Blood 95 mg/dL (70-99); Potassium, Blood 4.2 mmol/L (3.5-5.5); Sodium, Blood 135 mmol/L (136-145)
--- NOTE | 2021-11-10 05:34 | NUR ---
SHIFT SUMMARY: PT IS A/OX3. PT HAS BEEN TURNED Q2 TO PREVENT SKIN BREAKDOWN. WOUND VAC IS IN PLACE AND FUNCTIONING WELL. PT'S OSTOMY CONTINUES TO HAVE MODERATE GAS AND SMALL OUTPUT. CALL LIGHT IS WITHIN REACH AND WE'LL CONTINUE TO MONITOR. PAIN SEEMS TO BE MANAGED WITH THE Q6 TYLENOL.
--- NOTE | 2021-11-10 18:46 | NUR ---
SHIFT SUMMARY: C/O PAIN IN BLE; MEDICATED PER EMAR WITH GOOD RELIEF, BUT MAY BENEFIT FROM LONGER ACTING PO MEDICATION. WOUND VAC DRAINING MINIMAL SEROUS DRAINAGE. COLOSTOMY WITH LIQUID BROWN STOOL AND GAS. DECLINED TO GET OOB TO CHAIR TODAY. ATTEMPTED TO WORK WITH PHYSICAL THERAPY, BUT BECAME DIZZY SO SESSION CUT SHORT. INCONTINENT AT TIMES. WILL D/C HOME WITH ON FRIDAY AFTER HOME WOUND VAC PLACED.
--- NOTE | 2021-11-11 08:01 | NUR ---
WAS HERE 10/15/21 - 11/06/21 FOR INCARCERATED INCISIONAL HERNIA WITH BOWEL OBSTRUCTION GANGRENE. WENT HOME AND REALIZED SHE COULD NTO CARE FOR HERSELF AND CAME BACK. A&O 4. DVT IN LEFT LEG ON XARELTO. RIGHT COLOSTOMY DUE TO COLON PERF. WOUND VAC SET TO 70MMHG. REFUSED SNF AND IS AWAITING WOUND VAC TO TAKE HOME WITH HOME HEALTH.
--- NOTE | 2021-11-11 18:34 | NUR ---
Patient was alert and orient, her affect was restricted and mood was congruent. Patient was tearful this morning and but eventually stated that she was feeling better. Patient stayed in bed all shift without getting into the chair. She complained of being hot, then being cold. Patient complained of pain and feeling nauseous. She recvd prn Fentanyl x2 and prn Zofran x 1. She expressed her needs by using calling light. Her woundvac was intact, no leakage. She is possibly discharging tomorrow once her woundvac arrives to this facility.
--- NOTE | 2021-11-12 06:02 | NUR ---
PATIENT REQUESTING PAIN MEDICATION Q4H DUE TO LEFT LEG PAIN. OSTOMY OUTPUT AT 600 FOR SHIFT. FEELS SHE WILL GO HOME TODAY IF HOME HEALTH WOUND VAC ARRIVES. A&Ox4. BEDBOUND.
--- NOTE | 2021-11-12 07:42 | NUR ---
NENO mae handoff of patient care from NENO Romo Patient was lying in bed, call light was on and her requests were for multiple items. Staff assisted her with her requests. She did not appear to be in any distress
[2021-11-12] MEDS ORDERED: CEPH500 PO (12:47)
[2021-11-12] MEDS ORDERED: VISBIOME 112.51 EACH PO (12:47)
--- NOTE | 2021-11-12 13:06 | NUR ---
Upon receiving a referral for spiritual care from Dr. Newby, I visit patient. Patient is lying in bed and alert. Patient immediately tells me about the spiritual experience she had in one of her near medical events. She tells me how this experience has put her on a new path with God and how she is trying desperately to live and act with more kindness and compassion. This is new to her and she says she says, "sorry," often because she has been mean most of her life. We talk about the circumstances that began a downward slide in her life and the pain she has been in and the pain she has caused others. She also talks about the fact that in 2010 her , mother and father all . I normalize her experience and her struggle, reinforce helpful attitudes and practices, hear confession and provide therapeutic listening, gentle financial aid counselor, grief support and prayer. Patient responds well and shows signs of catharsis and increased peace. I will continue to remain available to patient and family.
--- NOTE | 2021-11-12 17:28 | NUR ---
Patient was discharged from the unit at 1615. She was discharged to home to her son. She was assisted by EMS in wheelchair. Shortly before leaving she wanted to get on stretcher stating, "I cant do it". RN reviewed discharge insructions, medications, and other educational material that was printed for her. Patient safely left the unit with our staff and EMS staff
[2021-11-13] MEDS ORDERED: METO10 PO (12:25)
== END 2021-11-12 16:18 | disposition home health service (06) ==
LOC: ER 12:26 → MEDS 12:27 → ENPENDDIS 11-09 14:30 → MEDS 11-12 16:18
PROVIDERS: Emergency Medicine; Internal Medicine; ADMIT Family Medicine
DX: R53.1 Weakness (principal); I82.442 Acute embolism and thrombosis of left tibial vein; I82.462 Acute embolism and thrombosis of left calf muscular vein; N39.0 Urinary tract infection, site not specified; F32.A Depression, unspecified; K43.1 Incisional hernia with gangrene; E03.9 Hypothyroidism, unspecified; R41.0 Disorientation, unspecified; E87.1 Hypo-osmolality and hyponatremia; D63.8 Anemia in other chronic diseases classified elsewhere; K21.9 Gastro-esophageal reflux disease without esophagitis; E78.5 Hyperlipidemia, unspecified; R00.0 Tachycardia, unspecified; E66.9 Obesity, unspecified; Z68.42 Body mass index [BMI] 45.0-49.9, adult; Z88.5 Allergy status to narcotic agent; Z93.2 Ileostomy status; Z90.49 Acquired absence of other specified parts of digestive tract; Z48.01 Encounter for change or removal of surgical wound dressing
CPT/HCPCS: 36415; 80048; 80053; 81003; 85025; 87077; 87086; 87186; 93926; 93971; 97110; 97161; 97165; 97530; 99285; A9270; J0696; J1650; J2405; J3010

== ENCOUNTER 2021-11-13 11:19 | Emergency (ER) | payer OTHER ==
[~2021-11-13] VITALS: Ht 157.5 cm; Wt 95.2 kg
[~2021-11-13 11:19] MED LIST changes: +ACET325 PO; +VISBIOME 112.51 EACH PO; +XARELTO15 MG PO; +XARELTO20 MG PO
[2021-11-13] MEDS ORDERED: METO10 PO (12:25)
== END 2021-11-13 14:21 | disposition home or self-care (01) ==
LOC: ER 11:19
DX: G43.909 Migraine, unspecified, not intractable, without status migrainosus (principal); E03.9 Hypothyroidism, unspecified; D64.9 Anemia, unspecified; Z88.5 Allergy status to narcotic agent; Z88.6 Allergy status to analgesic agent; Z79.899 Other long term (current) drug therapy
CPT/HCPCS: 99284; A9270

== ENCOUNTER → 2021-12-10 | Outpatient (CLI) | payer OTHER ==
[~2021-12-10] MED LIST changes: +METO10 PO
== END | disposition home or self-care (01) ==
LOC: LAB 12:10 → LAB SHORT 12:10
DX: T81.89XA Other complications of procedures, not elsewhere classified, initial encounter (principal); K94.19 Other complications of enterostomy
CPT/HCPCS: 87070; 87075; 87205

== ENCOUNTER 2021-12-14 16:31 | Emergency (ER) | payer OTHER ==
[~2021-12-14] VITALS: Ht 157.5 cm; Wt 113.4 kg
[2021-12-14] MEDS ORDERED: GABA100 PO (16:59)
[2021-12-14] MEDS ORDERED: TRAM50 PO (17:00)
[2021-12-14] MEDS ORDERED: XARELTO15 M1 PO (17:01)
== END 2021-12-14 18:45 | disposition home or self-care (01) ==
LOC: ER 16:31
DX: Z43.3 Encounter for attention to colostomy (principal); Z88.5 Allergy status to narcotic agent; Z88.8 Allergy status to other drugs, medicaments and biological substances; Z79.899 Other long term (current) drug therapy; E03.9 Hypothyroidism, unspecified
CPT/HCPCS: 99283; J7030

== ENCOUNTER → 2022-01-01 | Outpatient (CLI) | payer OTHER ==
[~2022-01-01] MED LIST changes: +GABA100 PO; +PROBIOTIC1 EA13 PO; +XARELTO15 M1 PO
== END | disposition home or self-care (01) ==
LOC: LAB 08:00 → LAB SHORT 18:16
DX: T81.89XD Other complications of procedures, not elsewhere classified, subsequent encounter (principal); K43.2 Incisional hernia without obstruction or gangrene
CPT/HCPCS: 87070; 87075; 87205

== ENCOUNTER 2022-01-05 02:26 | Inpatient (IN) | payer OTHER ==
[~2022-01-05] VITALS: Ht 157.5 cm; Wt 104.7 kg
[~2022-01-05 02:26] MED LIST changes: -PROBIOTIC1 EA13 PO
[2022-01-05 02:56] LABS: BASOPHILS ABSOLUTE AUTO 0.04 K/mm3 (0.00-0.23); BASOPHILS PERCENT AUTO 1 % (0-2); EOSINOPHILS ABSOLUTE AUTO 0.12 K/mm3 (0.00-0.68); EOSINOPHILS PERCENT AUTO 2 % (0-6); Hematocrit 35.7 % (33.0-51.0); Hemoglobin 10.8 g/dL (11.5-16.0); IMMATURE GRAN ABSOLUTE AUTO 0.02 K/mm3 (0.00-0.10); IMMATURE GRAN PERCENT AUTO 0 % (0-1); LYMPHOCYTES ABSOLUTE AUTO 2.05 K/mm3 (0.84-5.20); LYMPHOCYTES PERCENT AUTO 31 % (21-46); MONOCYTES ABSOLUTE AUTO 0.55 K/mm3 (0.16-1.47); MONOCYTES PERCENT AUTO 8 % (4-13); Mean Corpuscular HGB 30.6 pg (26.0-34.0); Mean Corpuscular HGB Conc 30.3 g/dL (31.5-36.5); Mean Corpuscular Volume 101 fL (80-100); NEUTROPHILS ABSOLUTE AUTO 3.79 K/mm3 (1.96-9.15); NEUTROPHILS PERCENT AUTO 58 % (41-73); Platelet Count 283 K/mm3 (150-400); RDW Coefficient Variation 17.2 % (11.7-14.2); RDW Standard Deviation 63.6 fL (35.1-46.3); Red Blood Cell Count 3.53 M/mm3 (3.80-5.20); White Blood Cell Count 6.57 K/mm3 (4.00-11.30)
[2022-01-05 03:22] LABS: Alanine Aminotransfer (ALT/SGP 15 U/L (12-78); Albumin, Blood 2.5 g/dL (3.4-5.0); Albumin/Globulin Ratio 0.6 (0.8-1.8); Alk Phos 87 U/L (50-136); Anion Gap 9 mmol/L (6-16); Aspartate Aminotrans (AST/SGOT 16 U/L (12-37); Bilirubin, Total 0.3 mg/dL (0.1-1.0); Blood Urea Nitrogen 14 mg/dL (8-24); CO2, Blood 24 mmol/L (21-32); Calcium, Blood 9.4 mg/dL (8.5-10.1); Chloride, Blood 107 mmol/L (98-108); Creatinine, Blood 0.67 mg/dL (0.40-1.00); Globulin, Blood 4.3 g/dL (2.2-4.0); Glomerular Filtration Rate >60 (60-); Glucose, Blood 119 mg/dL (70-99); Potassium, Blood 3.6 mmol/L (3.5-5.5); Sodium, Blood 140 mmol/L (136-145); Total Protein, Blood 6.8 g/dL (6.4-8.2)
--- NOTE | 2022-01-05 12:00 | NUR ---
PT CAME IN FROM ED FOR OPEN ABDOMINAL WOUND CONCERN. PT AOX4; 1-2P ASSIST TO BEDSIDE COMMODE. SHE STATED THAT SHE RECENTLY HAD A HERNIA REPAIR AND ENDED UP WITH COLOSTOMY. PT HAS COLOSTOMY ON HER RIGHT QUADRANT. PT STATED THAT SHE HAS HOMEHEALTH COME TO HER HOUSE TO CHANGE IT AND WOUND CARE. PT HAS A MIDLINE INCISION FOR HERNIA REPAIR. PER ED RN, IT HAS PURULENT AND DRAINAGE WITH SMELLY DISCHARGE WHEN THEY FIRST CHANGE THE WOUND. PT CONCERN ABOUT HER OSTOMY SITE, SHE STATED THAT SHE SAW BLOOD ON HER OSTOMY BAG THAT MADE HER GO TO ED. PT IS AFEBRILE AND WBC WNL. REDRESSED THE DRESSING FOR MIDLINE INCISION WOUND WET-TO-DRY DRESSING WITH ABD PAD, AND TOOK A PICTURE FOR CHART. PT STATED SHE IS VERY UNSTEADY STANDING AND WALKING SINCE SHE HAD THE SEVERAL PROCEDURE DONE. STOOLS ON HER OSTOMY IS BROWN AND NO BLOOD AT THIS TIME. BP IS LOW, FLUIDS STARTED PER DR. CALLED THE DR, AND THIS PT IS NOT HAVING A PROCEDURE TODAY SO HE CAN EAT. CALL LIGHT IN REACH AND BED IS IN THE LOWEST POSITION.
--- NOTE | 2022-01-05 18:10 | NUR ---
SHIFT SUMMARY PT AOX4; SEE PIC IN CHART FOR THE ABDOMINAL INCISION. DR DYKES CAME IN TO SEE THE WOUND. WET TO DRY DRESSING PER . NO C/O OF ACUTE PAIN. BED IS IN THE LOWEST POSITION AND CALL LIGHT WITHIN REACH
--- NOTE | 2022-01-05 20:31 | NUR ---
PATIENT COMPLAINTS OF PAIN/HEADACHE, NOTIFIED THAT SHE CAN GET TYLENOL PRN MED AVAILABLE. PT. SAID" I GET ULTRAM AT HOME 50 MG ", I NOTIFIED DR. DYKES VIA TEXT MESSAGE, ORDER RECEIVED TO GIVE 50 MG Q 8 HRS WHICH I EENTERED PRN PER PT. NOTED 3 CONFLICTS WHEN ORDER PLACED, NOTIFIED PHARMACY & I WAS TOLD TO OVERRIDE IT.
--- NOTE | 2022-01-06 07:07 | NUR ---
ASSUMED CARE OF PT @3005.NO ACUTE CHANGES.
[2022-01-06] MEDS ORDERED: PROBIOTIC1 EA13 PO (11:53)
[2022-01-06] MEDS ORDERED: SULTRIDS PO (11:53)
--- NOTE | 2022-01-06 14:30 | NUR ---
DISCHARGE SUMMARY PT A&OX4, VSS/RA, VOIDING, JENNY PO, DRESSING-WET/DRY-CHANGED PRIOR TO DC. STAND PIVOT WITH FWW TO BSC/CHAIR/BED-CANNOT STAND VERY LONG, GETS TIRED IN CHAIR AND STAYED UP FOR 30 MINUTES AT A TIME MAX. PT REP [facility] TRANSPORT TAKES HER TO [facility], I CALLED THEM AND THEY SAID THE GURNEY WOULD BE A COST OF $375 OR WC A COST OF $49, PT REQ ABEBE SINCE SHE CANNOT GET TO HER BED IN THE HOUSE, AND REQUESTED GURNEY TRANSPORT UNDERSTANDING THE COST IS HER OWN RESPONSIBILITY. AT 1415 LAB CALLED WITH BLOOD CULTURE RESULT OF GRAM + COCCI IN CLUSTERS, RELAYED TO HOSPITALIST, NO NEW ORDERS RECEIVED, APPROVED PT BEING DISCHARGED AND LEAVING WITH TRANSPORT AT 1430.
== END 2022-01-06 14:19 | disposition home or self-care (01) | DRG 920 ==
LOC: ER 02:26 → SURS 05:50 → ERHOLD 05:50 → SURS 10:58
PROVIDERS: Emergency Medicine; ADMIT Internal Medicine
DX: T81.31XA Disruption of external operation (surgical) wound, not elsewhere classified, initial encounter (principal); T81.41XA Infection following a procedure, superficial incisional surgical site, initial encounter; L02.211 Cutaneous abscess of abdominal wall; Z68.42 Body mass index [BMI] 45.0-49.9, adult; E03.9 Hypothyroidism, unspecified; E78.5 Hyperlipidemia, unspecified; K21.9 Gastro-esophageal reflux disease without esophagitis; F32.A Depression, unspecified; G62.9 Polyneuropathy, unspecified; F41.9 Anxiety disorder, unspecified; E66.01 Morbid (severe) obesity due to excess calories; Z28.21 Immunization not carried out because of patient refusal; Z88.5 Allergy status to narcotic agent; Z91.048 Other nonmedicinal substance allergy status; Z98.890 Other specified postprocedural states; Z93.2 Ileostomy status; Z90.49 Acquired absence of other specified parts of digestive tract; Z88.8 Allergy status to other drugs, medicaments and biological substances; Z79.899 Other long term (current) drug therapy; Y83.8 Other surgical procedures as the cause of abnormal reaction of the patient, or of later complication, without mention of misadventure at the time of the procedure
CPT/HCPCS: 36415; 74177; 80053; 83605; 85025; 87040; 96374; 96375; 99284-25; A9270; J2405; J2543; J3370; J7030; J7050; Q9967

== ENCOUNTER 2022-03-05 01:47 | Day surgery (SDC) | payer OTHER ==
[~2022-03-05 01:47] MED LIST changes: +PROBIOTIC1 EA13 PO
== END 2022-03-05 23:20 | disposition home or self-care (01) ==
LOC: WOUND 01:47
DX: L02.211 Cutaneous abscess of abdominal wall (principal); T81.31XA Disruption of external operation (surgical) wound, not elsewhere classified, initial encounter; S31.102S Unspecified open wound of abdominal wall, epigastric region without penetration into peritoneal cavity, sequela; X58.XXXS Exposure to other specified factors, sequela; Z93.2 Ileostomy status; R77.0 Abnormality of albumin; K43.9 Ventral hernia without obstruction or gangrene; E03.9 Hypothyroidism, unspecified; Z88.5 Allergy status to narcotic agent; Z88.8 Allergy status to other drugs, medicaments and biological substances
CPT/HCPCS: A9270; G0463

== ENCOUNTER 2022-03-20 02:39 | Day surgery (SDC) | payer OTHER | END 2022-03-20 23:46 | disposition home or self-care (01) | LOC: WOUND 02:39 | DX: L02.211 Cutaneous abscess of abdominal wall (principal); R77.0 Abnormality of albumin; K43.9 Ventral hernia without obstruction or gangrene; S31.102S Unspecified open wound of abdominal wall, epigastric region without penetration into peritoneal cavity, sequela; X58.XXXS Exposure to other specified factors, sequela; Z93.2 Ileostomy status | CPT/HCPCS: G0463 ==

== ENCOUNTER 2022-04-10 00:44 | Day surgery (SDC) | payer OTHER | END 2022-04-10 22:50 | disposition home or self-care (01) | LOC: WOUND 00:44 | DX: L02.211 Cutaneous abscess of abdominal wall (principal); R77.0 Abnormality of albumin; K43.9 Ventral hernia without obstruction or gangrene; T81.31XA Disruption of external operation (surgical) wound, not elsewhere classified, initial encounter; S31.102S Unspecified open wound of abdominal wall, epigastric region without penetration into peritoneal cavity, sequela; X58.XXXS Exposure to other specified factors, sequela; Z93.2 Ileostomy status | CPT/HCPCS: A9270; G0463 ==

== ENCOUNTER 2022-05-01 04:04 | Day surgery (SDC) | payer OTHER | END 2022-05-01 23:59 | LOC: WOUND 04:04 | DX: T81.31XA Disruption of external operation (surgical) wound, not elsewhere classified, initial encounter (principal); L02.211 Cutaneous abscess of abdominal wall; K43.9 Ventral hernia without obstruction or gangrene; Y83.8 Other surgical procedures as the cause of abnormal reaction of the patient, or of later complication, without mention of misadventure at the time of the procedure; Z93.2 Ileostomy status | CPT/HCPCS: A9270; G0463 ==

== ENCOUNTER 2022-06-12 02:07 | Day surgery (SDC) | payer OTHER | END 2022-06-12 23:48 | disposition home or self-care (01) | LOC: WOUND 02:07 | DX: T81.31XA Disruption of external operation (surgical) wound, not elsewhere classified, initial encounter (principal); L02.211 Cutaneous abscess of abdominal wall; R77.0 Abnormality of albumin; K43.9 Ventral hernia without obstruction or gangrene; S31.102A Unspecified open wound of abdominal wall, epigastric region without penetration into peritoneal cavity, initial encounter; Y83.8 Other surgical procedures as the cause of abnormal reaction of the patient, or of later complication, without mention of misadventure at the time of the procedure; Z93.2 Ileostomy status | CPT/HCPCS: A9270; G0463 ==

== ENCOUNTER 2022-06-26 06:31 | Day surgery (SDC) | payer OTHER | END 2022-06-26 23:33 | disposition home or self-care (01) | LOC: WOUND 06:31 | DX: S31.109A Unspecified open wound of abdominal wall, unspecified quadrant without penetration into peritoneal cavity, initial encounter (principal); X58.XXXA Exposure to other specified factors, initial encounter; L02.211 Cutaneous abscess of abdominal wall; T81.31XA Disruption of external operation (surgical) wound, not elsewhere classified, initial encounter; Z93.2 Ileostomy status; R77.0 Abnormality of albumin; K43.9 Ventral hernia without obstruction or gangrene | CPT/HCPCS: A9270 ==

== ENCOUNTER 2022-07-24 02:00 | Day surgery (SDC) | payer OTHER | END 2022-07-24 23:40 | disposition home or self-care (01) | LOC: WOUND 02:00 | DX: L02.211 Cutaneous abscess of abdominal wall (principal); S31.102S Unspecified open wound of abdominal wall, epigastric region without penetration into peritoneal cavity, sequela; R77.0 Abnormality of albumin; K43.9 Ventral hernia without obstruction or gangrene; Z93.2 Ileostomy status | CPT/HCPCS: A9270; G0463 ==

== ENCOUNTER 2022-08-09 00:56 | Day surgery (SDC) | payer OTHER | END 2022-08-09 23:31 | disposition home or self-care (01) | LOC: WOUND 00:56 | DX: T81.31XA Disruption of external operation (surgical) wound, not elsewhere classified, initial encounter (principal); L02.211 Cutaneous abscess of abdominal wall; R77.0 Abnormality of albumin; K43.9 Ventral hernia without obstruction or gangrene; Y83.8 Other surgical procedures as the cause of abnormal reaction of the patient, or of later complication, without mention of misadventure at the time of the procedure; Z93.2 Ileostomy status | CPT/HCPCS: G0463 ==

== ENCOUNTER 2022-09-06 00:35 | Day surgery (SDC) | payer OTHER | END 2022-09-06 22:53 | disposition home or self-care (01) | LOC: WOUND 00:35 | DX: T81.32XA Disruption of internal operation (surgical) wound, not elsewhere classified, initial encounter (principal); L02.211 Cutaneous abscess of abdominal wall; Z93.2 Ileostomy status; K43.9 Ventral hernia without obstruction or gangrene | CPT/HCPCS: A9270; G0463 ==

== ENCOUNTER 2022-10-27 16:02 | Inpatient (IN) | payer OTHER ==
[~2022-10-27] VITALS: Ht 152.4 cm; Wt 111.8 kg
[2022-10-27 16:39] LABS: Source, Urine Foley catheter
[2022-10-27 16:41] LABS: PCO2 Arterial 45.2 mmHg (35-45); PO2 Arterial 88.8 mmHg (80-100); pH Blood Arterial 7.42 (7.35-7.45)
[2022-10-27 16:42] LABS: BASOPHILS ABSOLUTE AUTO 0.01 K/mm3 (0.00-0.23); BASOPHILS PERCENT AUTO 0 % (0-2); EOSINOPHILS ABSOLUTE AUTO 0.04 K/mm3 (0.00-0.68); EOSINOPHILS PERCENT AUTO 1 % (0-6); Hematocrit 25.1 % (33.0-51.0); Hemoglobin 7.2 g/dL (11.5-16.0); IMMATURE GRAN ABSOLUTE AUTO 0.04 K/mm3 (0.00-0.10); IMMATURE GRAN PERCENT AUTO 1 % (0-1); LYMPHOCYTES ABSOLUTE AUTO 0.51 K/mm3 (0.84-5.20); LYMPHOCYTES PERCENT AUTO 11 % (21-46); MONOCYTES ABSOLUTE AUTO 0.38 K/mm3 (0.16-1.47); MONOCYTES PERCENT AUTO 9 % (4-13); Mean Corpuscular HGB Conc 28.7 g/dL (31.5-36.5); Mean Corpuscular Volume 84 fL (80-100); Mean Platelet Volume 10.3 fL (9.1-12.4); NEUTROPHILS ABSOLUTE AUTO 3.49 K/mm3 (1.96-9.15); NEUTROPHILS PERCENT AUTO 78 % (41-73); NRBC ABSOLUTE 0.02 K/mm3 (0.00-0.02); NRBC Auto 0.4 /100 WBC (0.0-0.2); Platelet Count 266 K/mm3 (150-400); RDW Coefficient Variation 18.4 % (11.7-14.2); RDW Standard Deviation 52.6 fL (35.1-46.3); White Blood Cell Count 4.47 K/mm3 (4.00-11.30)
[2022-10-27 16:43] LABS: Appearance, Urine Clear (Clear); Bilirubin, Urine Neg (Neg); Blood, Urine 1+ (Neg); Color, Urine Yellow (P-Yellow); Glucose Qualitative, Urine Neg (Neg); Ketones, Urine Neg (Neg); Leukocyte Esterase, Urine 3+ (Neg); Nitrite, Urine Neg (Neg); Protein, Urine Neg (Neg); Specific Gravity, Urine 1.025 (1.003-1.022); Urobilinogen, Urine NORM (Normal)
[2022-10-27 16:51] LABS: Hyaline Casts 0-2 /lpf (0-2)
[2022-10-27 16:52] LABS: Bacteria Many /hpf; Red Blood Cells, Urine 0-2 /hpf (0-2); Squamous Epithelial Cells Rare /hpf (Few)
[2022-10-27 16:53] LABS: Calcium Oxalate Crystals Few /hpf
[2022-10-27 17:03] LABS: Albumin, Blood 2.2 g/dL (3.4-5.0); Albumin/Globulin Ratio 0.5 (0.8-1.8); Bilirubin, Total 0.2 mg/dL (0.1-1.0); Bun/Creatinine Ratio 11.1 (12.0-20.0); Calcium, Blood 8.4 mg/dL (8.5-10.1); Creatinine, Blood 0.99 mg/dL (0.40-1.00); Globulin, Blood 4.1 g/dL (2.2-4.0); Potassium, Blood 4.5 mmol/L (3.5-5.5); Total Protein, Blood 6.3 g/dL (6.4-8.2)
[2022-10-27 17:20] LABS: Influenza A, PCR NEGATIVE (NEGATIVE); Influenza B, PCR NEGATIVE (NEGATIVE); Resp Syncytial Virus, PCR NEGATIVE (NEGATIVE)
[2022-10-27 17:28] LABS: SARS-Cov-2 (COVID-19) PCR, MMC POSITIVE (NEGATIVE)
[2022-10-27 20:38] LABS: Percent Saturation 9.7 % (15.0-50.0)
[2022-10-27 20:57] LABS: Thyroid Stimulating Hormone 20.3 uIU/mL (0.360-4.800)
--- NOTE | 2022-10-27 22:05 | NUR ---
PATIENT ARRIVED TO ICU 7 VIA GURNEY WITH PORTABLE VENT AND RT AT BEDSIDE, PATIENT TRANSFERRED TO ICU BED AND PLACED ON VENT BY RT, PLACED ON ICU MONITORS. LEVOPHED 20 MCG AND PROPOFOL 30 MCG AND LR 500 CC BOLUS INFUSING TO RIGHT EJ IV. DOCTOR BECKWITH IN TO SEE PATIENT. LEVOPHED, PROPOFOL AND BOLUS CHANGED TO RIGHT FEMORAL CENTRAL LINE. ILEOSTOMY TO RIGHT LOWER QUADRANT WITH 225 CC OF LIQUID BROWN STOOL EMPTIED. ABD DRESSING TO MID ABD COVERING A 3 CM BY 1 CM WOUND DRAINING STRONG SMELLING YELLOW DRAINAGE. BILAT WRIST RESTRAINT IN PLACE DUE TO RISK FOR ACCIDENTAL EXTUBATION DUE TO UNPREDICTABLE SEDATION AND BEHAVIOR.
[2022-10-27 22:51] LABS: Hematocrit 26.6 % (33.0-51.0); Hemoglobin 7.8 g/dL (11.5-16.0)
--- NOTE | 2022-10-27 23:00 | NUR ---
RT CALLED TO PULL ETT BACK 2 CM. PER DOCTOR AMENA AND CT READING. ADJUSTED BY YOGI IN RT NOW AT 23 AT TEETH.
[2022-10-27 23:06] LABS: Base Excess Venous -0.8 mmol/L; Bicarbonate Venous 23.6 mmol/L (24.0-30.0); PCO2 Venous 47.8 mmHg (38-42); pH Blood Venous 7.33 (7.34-7.37)
[2022-10-28] MEDS ORDERED: EUTHYROX125 MCG PO (04:23)
[2022-10-28] MEDS ORDERED: LASIX20 M2 PO (04:24)
[2022-10-28 05:25] LABS: BASOPHILS ABSOLUTE AUTO 0.04 K/mm3 (0.00-0.23); BASOPHILS PERCENT AUTO 0 % (0-2); EOSINOPHILS ABSOLUTE AUTO 0.01 K/mm3 (0.00-0.68); EOSINOPHILS PERCENT AUTO 0 % (0-6); Hematocrit 26.6 % (33.0-51.0); Hemoglobin 8.1 g/dL (11.5-16.0); IMMATURE GRAN PERCENT AUTO 1 % (0-1); LYMPHOCYTES ABSOLUTE AUTO 1.27 K/mm3 (0.84-5.20); LYMPHOCYTES PERCENT AUTO 7 % (21-46); MONOCYTES ABSOLUTE AUTO 0.78 K/mm3 (0.16-1.47); MONOCYTES PERCENT AUTO 4 % (4-13); Mean Corpuscular HGB 24.7 pg (26.0-34.0); Mean Corpuscular HGB Conc 30.5 g/dL (31.5-36.5); Mean Corpuscular Volume 81 fL (80-100); Mean Platelet Volume 10.1 fL (9.1-12.4); NEUTROPHILS ABSOLUTE AUTO 15.69 K/mm3 (1.96-9.15); NEUTROPHILS PERCENT AUTO 87 % (41-73); NRBC ABSOLUTE 0.02 K/mm3 (0.00-0.02); NRBC Auto 0.1 /100 WBC (0.0-0.2); Platelet Count 366 K/mm3 (150-400); RDW Coefficient Variation 18.8 % (11.7-14.2); RDW Standard Deviation 52.3 fL (35.1-46.3); Red Blood Cell Count 3.28 M/mm3 (3.80-5.20); White Blood Cell Count 17.99 K/mm3 (4.00-11.30)
[2022-10-28 06:24] LABS: Bun/Creatinine Ratio 12.2 (12.0-20.0); Calcium, Blood 7.5 mg/dL (8.5-10.1); Creatinine, Blood 1.15 mg/dL (0.40-1.00); Potassium, Blood 4.1 mmol/L (3.5-5.5)
--- NOTE | 2022-10-28 07:00 | NUR ---
SUMMARY PATIENT REMAINS INTUBATED AND SEDATED. PROPOFOL 30 MCG, PATIENT NODDING YES AND NO TO QUESTIONS AND FOLLOWING DIRECTIONS. ETT IN PLACE WITH VENT ACVC+ 18/400/5/FIO2 30% SUCTIONING SMALL AMT OF CLEAR TO WHITE SPUTUM VIA ETT. OG REMAINS IN PLACE TO LIS DRAINING LIGHT YELLOW TO CLEAR SECRETIONS. ILEOSTOMY TO RIGHT LOWER QUAD DRAINING LIQUID BROWN STOOL, PILL FRAGMENT IN STOOL THIS AM. HYPOTENSION CONTINUES LEVOPHED TITRATED DOWN TO 16 MCG VASOPRESSIN CONTINUES 0.04 MCG. ABD DRESSING CHANGED HAVING MOD AMT OF STRONG SMELLING GÓMEZ DRAINAGE.
--- NOTE | 2022-10-28 09:40 | NUR ---
ASSUMED CARE OF PATIENT AT 0700, PT IS ON VENTILATOR AC/VC 14/400/5/30%. SHE IS ABLE TO ANSWER WITH HEAD NODS/SHAKES. MAEW, LEGS WEAK. BREATHING EASY, NON LABORED, LUNG SOUNDS DIMINISHED. OGT TO LOW INTERMITTENT SUCTION. TOLERATING MEDS THRU TUBE. ABDOMEN TENDER, WOUND TO MIDLINE ABDOMEN, WEAPING. OSTOMY SITE INTACT, STOMA RED WITH BROWN LIQUID DRAINAGE. PULIDO TO GRAVITY DRAINAGE WITH YELLOW RETURN. DR'S HAVE ROUNDED, SURGEON HAS BEEN IN, NO SURGERY RECOMMENDED AT THIS TIME. PT ON PROPOFOL @ 30 MCG/KG, NOREPI @ 14MCG, VASO, MERREM IVPB. WILL CONTINUE TO ASSESS NEED FOR VASO AND LEVO. TURNED WITH LIFT. PT TOLERATED WELL.
--- NOTE | 2022-10-28 10:54 | NUR ---
PT'S HEART RATE CONTINUED TO DROP TO 48-49. PT'S BP WAS IMPROVING, SO WAS ABLE TO PLACE THE VASOPRESSIN ON STANDBY. HEART RATE HAS GONE FROM SINUS TO ATRIAL FIB ON OCC BUT IS NOW BACK TO SINUS. WILL CONTINUE TO MONITOR AND TREAT.
--- NOTE | 2022-10-28 15:17 | NUR ---
SEAN BECAME MUCH MORE AWAKE AFTER TURNED OFF HER SEDATION. SHE WAS READY FOR EXTUBATION, R/T LESLEE CALLED, PT PLACED ON SPONTANEOUS AT 1420 WHILE WE PREPARED TO EXTUBATE. SEAN DID GREAT, WE EXTUBATED AT 1440. DURING THIS PROCESS HER LEVO WENT FROM 10 TO 6 TO SB BY 1430. THE VASOPRESSIN HAS BEEN OFF FOR A COUPLE OF HOURS. SHE IS CURRENTLY ON 4L/NC WITH SATS >95%. SHE IS ABLE TO COMMUNICATE WITHOUT INCIDENT. SHE ASKED IF HER SON HAS BEEN UPDATED WHICH A CALL TO HIM WAS MADE FOR AN UPDATE. SHE IS ABLE TO HELP REPOSITION HERSELF AND ALERT US TO HER NEEDS.
--- NOTE | 2022-10-28 17:53 | NUR ---
SEAN HAS HAD A GREAT DAY. SHE BEGAN THE DAY ON VASOPRESSIN, LEVOPHED, PROPOFOL AND THE VENTILATOR. SHE HAS BEEN OFF THE PRESSORS, EXTUBATED AND BREATHING ON 4L/NC. HER ABDOMEN IS SOFT AND PASSING LIQUID STOOL IN THE ILEOSTOMY, SHE HAD 1 LITER OUT OF HER PULIDO CATHETER, SHE IS ABLE TO SWALLOW AND TAKE IN ICE CHIPS. SHE IS ABLE TO REPOSITION HERSELF IN BED AND MAKE HER NEEDS KNOWN. SHE HAS LR @ 100ML/HR INFUSING AND A NS TKO INFUSING IN THE RIGHT GROIN CENTRAL LINE. SCD'S IN PLACE, BILATERAL FEET EDEMA. WOUND ASSESSED BY WITH NO PLANS FOR SURGERY.
--- NOTE | 2022-10-28 21:55 | NUR ---
PATIENT AWAKE A&O X3 YET SLIGHTLY FORGETFUL, AT TIMES REPEATING QUESTIONS FREQUENT TIMES WITHIN FEW MINUTES. MAEW. NO C/O FEELING SOB. LUNG SOUNDS CONTINUE TO BE DECREASED WITH COARSENESS IN RIGHT UPPER LOBE, MOIST NONPRODUCTIVE COUGH. DRESSING TO MID ABD INTACT WITH DRAINAGE CONTAINED WITHIN DRESSING. ILEOSTOMY TO RIGHT LOWER QUAD WITH SMALL AMT OF LIQUID BROWN STOOL IN BAG, DSS HELD DUE TO LARGE AMT OF LIQUID STOOL TODAY. PO MEDS HELD TONIGHT DUE TO RECENT EXTUBATION. PATIENT REMAINS HYPOTENSIVE IF MAP CONTINUES TO BE BELOW 65 WITH RESTART LEVOPHED. PATIENT ABLE TO TALK TO HER SON ON THE TELEPHONE WITHOUT DIFFICULTY, BUT AGAIN REPEATING HERSELF FREQUENTLY.
[2022-10-29 03:59] LABS: Calcium, Blood 7.1 mg/dL (8.5-10.1); Creatinine, Blood 0.79 mg/dL (0.40-1.00); Phosphorus, Blood 3.4 mg/dL (2.5-4.9); Potassium, Blood 3.9 mmol/L (3.5-5.5)
--- NOTE | 2022-10-29 07:17 | NUR ---
SUMMARY PATIENT SLEEPING OFF AND ON T/O NIGHT. AWAKENS EASILY TO SLIGHT STIMULI. LESS FORGETFULNESS NIGHT PROGRESSED. HYPOTENSION CONTINUES LEVOPHED 2 MCG TO KEEP MAP >65. ABD DRESSING CHANGED ONCE DURING THE NIGHT DUE TO PURULENT DRAINAGE. ILEOSTOMY DRAINING SMALL AMT OF LIQUID BROWN STOOL. NIGHT HAS PROGRESSED PATIENTS URINE OUTPUT HAS IMPROVED. PATIENT ABLE TO REPOSITION SELF IN BED FOR COMFORT.
[2022-10-29 07:31] LABS: BASOPHILS PERCENT AUTO 0 % (0-2); EOSINOPHILS PERCENT AUTO 0 % (0-6); Hematocrit 21.1 % (33.0-51.0); IMMATURE GRAN ABSOLUTE AUTO 0.05 K/mm3 (0.00-0.10); IMMATURE GRAN PERCENT AUTO 1 % (0-1); LYMPHOCYTES ABSOLUTE AUTO 0.94 K/mm3 (0.84-5.20); LYMPHOCYTES PERCENT AUTO 16 % (21-46); MONOCYTES ABSOLUTE AUTO 0.23 K/mm3 (0.16-1.47); MONOCYTES PERCENT AUTO 4 % (4-13); Mean Corpuscular HGB 23.3 pg (26.0-34.0); Mean Corpuscular HGB Conc 28.4 g/dL (31.5-36.5); Mean Corpuscular Volume 82 fL (80-100); Mean Platelet Volume 10.2 fL (9.1-12.4); NEUTROPHILS ABSOLUTE AUTO 4.72 K/mm3 (1.96-9.15); NEUTROPHILS PERCENT AUTO 80 % (41-73); Platelet Count 207 K/mm3 (150-400); RDW Coefficient Variation 18.7 % (11.7-14.2); Red Blood Cell Count 2.58 M/mm3 (3.80-5.20); White Blood Cell Count 5.94 K/mm3 (4.00-11.30)
--- NOTE | 2022-10-29 07:36 | NUR ---
ASSUMED CARE: PT RESTING QUIETLY IN BED, 2L O2 VIA NC. NSR ON TELE IN 70S. 2MCG/KG OF LEVOPHED RUNNING. ABDOMINAL DRESSING DRY AND IN TACT. OSTOMY DRAINING BROWN LIQUID STOOL. PULIDO DRAINING CLEAR YELLOW URINE. NO ACUTE NEEDS OR CONCERNS AT THIS TIME.
--- NOTE | 2022-10-29 09:04 | NUR ---
INFORMED PT THAT DRS ORDERED A UNIT OF BLOOD AND PT WAS ADAMANT THAT SHE DOES NOT WANT IT. STATES SHE DOES NOT WANT BLOOD FROM OTHER PEOPLE. EDUCATED HER ON THE SCREENING PROCESS AND INFORMED HER THAT WITHOUT IT SHE COULD HAVE CARDIAC ISSUES OR WORSENING SOB. PT CONTINUES TO DECLINE. STATES THAT IF WE HAVE ANY FURTHER QUESTIONS OR CONCERNS WITH IT TO CALL HER SON. DR CHIRINOS MADE AWARE AND STATES TO CANCEL ORDER AND WILL HAVE DR VALENZUELA CALL PT'S SON. STATES SHE WILL LIKELY ORDER MIDODRINE AND DO IRON STUDIES.
[2022-10-29 12:36] LABS: Hematocrit 20.3 % (33.0-51.0)
--- NOTE | 2022-10-29 18:34 | NUR ---
SHIFT SUMMARY: PT HAS DECLINED CARE NEEDS SUCH REPOSITIONING THIS SHIFT. STATED SHE WAS WORRIED ABOUT THE MESH NEEDING TO BE REPLACED IN HER ABDOMEN. DR CASTILLO CAME TO SEE HER AND STATED THAT MESH WAS INFECTED BUT NOT NEWLY INFECTED SO WOULD NOT NEED TO BE CHANGED IMMEDIATELY AND DOES NOT FEEL THAT THAT IS THE CAUSE OF HER SEPTIC RESPONSE. OFF LEVOPHED MAJORITY OF THE SHIFT. VSS AT THIS TIME.
[2022-10-29 20:07] LABS: Hematocrit 21.1 % (33.0-51.0)
--- NOTE | 2022-10-29 21:31 | NUR ---
PATIENT RESTING QUIETLY IN BED, APPEARS MORE WITHDRAWN THIS EVENING COMPARED TO THIS MORNING. PATIENT AGAIN VERBALIZED THAT SHE DOES NOT WANT ANY BLOOD TRANSFUSION UNLESS IT WAS LIFE OR , PATIENT WOULD NOT ELABORATE WHAT POINT THIS WOULD BE. TALK TO PATIENTS SON AND GAVE HIM AN UPDATE, HE AGREES WITH HIS MOTHERS DECISION AND EXPANDED TO THAT BLOOD PRODUCTS ONLY IF ACTIVE BLEED IS SEEN, AND THAT SHE WOULD WITHOUT THE BLOOD. H&H REMAINS STABLE AT THIS TIME. DRESSING MID ABD CD&I. ILEOSTOMY TO RIGHT LOWER QUAD DRAINING LIQUID BROWN STOOL. MOIST NONPRODUCTIVE COUGH CONTINUES, ON 2L/NC. LEVOPHED REMAINS OFF.
--- NOTE | 2022-10-29 23:02 | NUR ---
BIOX 97-99% ON 2L/NC PATIENT PLACED TO RA. WHILE SLEEPING BIOX DOWN TO 88%, OXYGEN PLACED BACK ON 2L/NC
--- NOTE | 2022-10-30 01:12 | NUR ---
PATIENT REQUESTING TO TAKE RING ON LEFT HAND OFF DUE TO SWELLING IN HER HANDS. RING REMOVED AND PLACED IN SPECI JAR AND PUT WITH BELONGINGS
[2022-10-30 04:29] LABS: BASOPHILS PERCENT AUTO 0 % (0-2); EOSINOPHILS PERCENT AUTO 0 % (0-6); Hematocrit 20.3 % (33.0-51.0); IMMATURE GRAN ABSOLUTE AUTO 0.04 K/mm3 (0.00-0.10); IMMATURE GRAN PERCENT AUTO 2 % (0-1); LYMPHOCYTES ABSOLUTE AUTO 0.69 K/mm3 (0.84-5.20); LYMPHOCYTES PERCENT AUTO 26 % (21-46); MONOCYTES ABSOLUTE AUTO 0.15 K/mm3 (0.16-1.47); MONOCYTES PERCENT AUTO 6 % (4-13); Mean Corpuscular HGB Conc 29.1 g/dL (31.5-36.5); Mean Corpuscular Volume 83 fL (80-100); Mean Platelet Volume 10.3 fL (9.1-12.4); NEUTROPHILS ABSOLUTE AUTO 1.81 K/mm3 (1.96-9.15); NEUTROPHILS PERCENT AUTO 67 % (41-73); Platelet Count 193 K/mm3 (150-400); RDW Coefficient Variation 18.6 % (11.7-14.2); RDW Standard Deviation 54.4 fL (35.1-46.3); Red Blood Cell Count 2.46 M/mm3 (3.80-5.20); White Blood Cell Count 2.69 K/mm3 (4.00-11.30)
[2022-10-30 04:39] LABS: Bun/Creatinine Ratio 20.6 (12.0-20.0); Calcium, Blood 7.5 mg/dL (8.5-10.1); Creatinine, Blood 0.68 mg/dL (0.40-1.00); Magnesium, Blood 2.1 mg/dL (1.6-2.4); Phosphorus, Blood 2.3 mg/dL (2.5-4.9); Potassium, Blood 3.5 mmol/L (3.5-5.5)
[2022-10-30 05:45] LABS: Hemoglobin 5.9 g/dL (11.5-16.0)
--- NOTE | 2022-10-30 07:30 | NUR ---
SUMMARY PATIENT SLEEPING OFF AND ON T/O NIGHT, WHEN SLEEPING REQUIRING OXYGEN 2L/NC IN PLACE TO KEEP BIOX >90%. MOIST NONPRODUCTIVE COUGH CONTINUES. DRESSING TO ABD CHANGED THIS MORNING CONTINUES TO HAVE STRONG SMELLING GÓMEZ PURULENT DRAINAGE. ILEOSTOMY DRAINING LIQUID BROWN STOOL. PATIENT ABLE TO REPOSITION SELF T/O NIGHT.
--- NOTE | 2022-10-30 11:53 | NUR ---
"Spiritual Care | Nurse Request Pt. is awake in bed and welcomes my visit. Pt. is pleasant but a little unsettled because her adult son is sick at home. Listen witha calming presence and establish rapport. Pt. displayed evidence of confidence and engagement. Pt. requested this policy and planning manager to contact her learning specialist. Prayed with Pt. Pt. verbalized gratitude for the spiritual care visit. Contacted Pts. Manager Educational per the pts. request."
[2022-10-30 15:50] LABS: Hematocrit 23.5 % (33.0-51.0)
--- NOTE | 2022-10-30 18:46 | NUR ---
END OF SHIFT SUMMARY: NEURO: ALERT AND ORIENTED X4 CARDIAC: SR-SB, MIDODRINE DOSE HELD AT NOON AND CHANGED TO PRN PER DR. VALENZUELA. BP WNL (115-130) RESP: ROOM AIR, O2 SAT > 95%. OCCASIONAL COUGH, LOOSE, NON-PRODUCTIVE. GI: POOR APPETITE, ATE 10% OF ALL MEALS. ADDED ENSURE TO ALL TRAYS. ILIOSTOMY STOMA BEEFY RED. MINIMAL OUTPUT THIS SHIFT. : PULIDO DRAINING CLEAR YELLOW URINE. 350ML OUT SKIN: ABD DRESSING C/D/I, NO DRAINAGE PRESENT. IV: PIV X1 RIGHT FOREARM, FLUSHES WELL. RIGHT FEMORAL CENTRAL LINE INFUSING. SMART SET IN PLACE FOR BLOOD DRAWS DUE TO LOW H/H. 1 UNIT PRBC'S TRANSFUSED THIS AM WITH REPEAT HGB OF 7.0. PLAN FOR REPEAT H/H THIS EVENING PER DR. VALENZUELA. CONTACTED SON VIA PHONE SEVERAL TIMES PER PT REQUEST TO UPDATE HIM ON POC AND CURRENT CONDITION. SON IS SICK AT HOME WITH COVID WELL. SOME DISCUSSION BETWEEN SON AND PT ABOUT SNF PLACEMENT AT D/C FOR CONTINUED PT/OT. BEING FOLLOWED BY CARE MANAGEMENT. PT HAS STATUS CHANGE ORDERS FOR MEDICAL FLOOR, NO TELEMETRY NEEDED PER DR. VALENZUELA.
[2022-10-30 20:06] LABS: Hematocrit 24.4 % (33.0-51.0); Hemoglobin 7.5 g/dL (11.5-16.0)
--- NOTE | 2022-10-30 22:07 | NUR ---
ASSUMED CARE ASSUMED CARE AT 1900. PT A/O X 4. CALM AND COOPERATIVE WITH CARE. SR, RATE 60'S. SBP 130'S. ON RA. VSS. CENTRAL LINE TO R GROIN REMOVED. ROBBIE PRESSURE HELD FOR 5 MINS. AREA SOFT, NON-TENDER AND W/O HEMATOMA. SEE SHIFT ASSESSMENT FOR FULL ASSESSMENT. REPORT GIVEN AND PT TRANSFERRED TO MEDICAL FLOOR W/ PCT. PT CALM W/ NO S/S OF DISTRESS.
--- NOTE | 2022-10-30 22:51 | NUR ---
ICU TRANSFER TO MEDICAL UNIT RM 361. A&O X4. C/O HEADACHE. TYLENOL GIVEN IN ICU PRIOR TO TRANSFER. DRSG CHANGED TO ABDOMEN THIS EVENING WITH ABDOMINAL PAD AND TAPE. ILEOSTOMY PATENT AND INTACT, WITH BROWN LOOSE STOOL. BED ALARM ON. WILL CONTINUE TO MONITOR.
[2022-10-31 05:35] LABS: BASOPHILS ABSOLUTE AUTO 0.01 K/mm3 (0.00-0.23); BASOPHILS PERCENT AUTO 0 % (0-2); EOSINOPHILS PERCENT AUTO 0 % (0-6); Hematocrit 24.8 % (33.0-51.0); Hemoglobin 7.5 g/dL (11.5-16.0); IMMATURE GRAN ABSOLUTE AUTO 0.03 K/mm3 (0.00-0.10); IMMATURE GRAN PERCENT AUTO 1 % (0-1); LYMPHOCYTES ABSOLUTE AUTO 1.49 K/mm3 (0.84-5.20); LYMPHOCYTES PERCENT AUTO 39 % (21-46); MONOCYTES ABSOLUTE AUTO 0.26 K/mm3 (0.16-1.47); MONOCYTES PERCENT AUTO 7 % (4-13); Mean Corpuscular HGB 24.5 pg (26.0-34.0); Mean Corpuscular HGB Conc 30.2 g/dL (31.5-36.5); Mean Corpuscular Volume 81 fL (80-100); Mean Platelet Volume 10.3 fL (9.1-12.4); NEUTROPHILS ABSOLUTE AUTO 2.05 K/mm3 (1.96-9.15); NEUTROPHILS PERCENT AUTO 53 % (41-73); NRBC ABSOLUTE 0.03 K/mm3 (0.00-0.02); NRBC Auto 0.8 /100 WBC (0.0-0.2); Platelet Count 179 K/mm3 (150-400); RDW Standard Deviation 51.1 fL (35.1-46.3); Red Blood Cell Count 3.06 M/mm3 (3.80-5.20); White Blood Cell Count 3.84 K/mm3 (4.00-11.30)
[2022-10-31 05:52] LABS: Bun/Creatinine Ratio 21.1 (12.0-20.0); Calcium, Blood 7.6 mg/dL (8.5-10.1); Creatinine, Blood 0.66 mg/dL (0.40-1.00); Magnesium, Blood 2.1 mg/dL (1.6-2.4); Potassium, Blood 3.5 mmol/L (3.5-5.5)
--- NOTE | 2022-10-31 18:04 | NUR ---
SHIFT SUMMARY PT A&O X 3. VSS. PT C/O NEWTON AND ABD PAIN, MEDICATED W/TYLENOL WITH GOOD EFFECT. MEDICATED ONCE FOR NAUSEA WITH PRN ZOFRAN, ZOFRAN ORDER OBTAINED FROM W/ GOOD EFFECT. ILEOSTOMY INTACT & PATENT W/LOOSE BROWN STOOL. F/C INTACT & PATENT DRAINING CLEAR YELLOW URINE. ABD WOUND DRESSING CHANGED. PT PARTICIPATED WITH PT & OT TODAY. IS IN COVID ISO. WILL LIKELY DC TO REHAB UPON DC.
--- NOTE | 2022-11-01 06:38 | NUR ---
DR VALENZUELA CALL AND WANTED BMP LAB DRAW ON PT. ORDER PLACED IN COMPUTER.
--- NOTE | 2022-11-01 06:43 | NUR ---
SHIFT SUMMARY A&O X4. VSS. PT C/O HEADACHE 07/29. PRN TYLENOL GIVEN Q6H X2 THIS SHIFT. PULIDO CATHETER PATENT WITH CLEAR YELLOW URINE OUTPUT. WILL BE DC THIS AM. PT SLEPT OFF AND ON BETWEEN CARE. DRSG TO ABDOMEN C/D/I. WILL CONTINUE TO MONITOR.
[2022-11-01 09:05] LABS: Bun/Creatinine Ratio 17.1 (12.0-20.0); Calcium, Blood 7.8 mg/dL (8.5-10.1); Creatinine, Blood 0.64 mg/dL (0.40-1.00); Potassium, Blood 3.6 mmol/L (3.5-5.5)
[2022-11-01 09:18] LABS: BASOPHILS ABSOLUTE AUTO 0.01 K/mm3 (0.00-0.23); BASOPHILS PERCENT AUTO 0 % (0-2); EOSINOPHILS PERCENT AUTO 0 % (0-6); Hematocrit 25.8 % (33.0-51.0); Hemoglobin 7.8 g/dL (11.5-16.0); IMMATURE GRAN ABSOLUTE AUTO 0.05 K/mm3 (0.00-0.10); IMMATURE GRAN PERCENT AUTO 1 % (0-1); LYMPHOCYTES ABSOLUTE AUTO 0.78 K/mm3 (0.84-5.20); LYMPHOCYTES PERCENT AUTO 22 % (21-46); MONOCYTES ABSOLUTE AUTO 0.21 K/mm3 (0.16-1.47); MONOCYTES PERCENT AUTO 6 % (4-13); Mean Corpuscular HGB 24.8 pg (26.0-34.0); Mean Corpuscular HGB Conc 30.2 g/dL (31.5-36.5); Mean Corpuscular Volume 82 fL (80-100); Mean Platelet Volume 10.6 fL (9.1-12.4); NEUTROPHILS ABSOLUTE AUTO 2.57 K/mm3 (1.96-9.15); NEUTROPHILS PERCENT AUTO 71 % (41-73); NRBC ABSOLUTE 0.02 K/mm3 (0.00-0.02); NRBC Auto 0.6 /100 WBC (0.0-0.2); Platelet Count 194 K/mm3 (150-400); Red Blood Cell Count 3.15 M/mm3 (3.80-5.20); White Blood Cell Count 3.62 K/mm3 (4.00-11.30)
--- NOTE | 2022-11-01 18:27 | NUR ---
SHIFT SUMMARY PT IS DOING QUITE WELL, GAINING STRENGTH. F/C DC'D AND PT IS ABLE TO USE RESTROOM WITH STDBY ASSIST USING A FWW. UP IN THE CHAIR FOR BFAST & DINNER. APPETITE IMPROVING. VSS. A&O X 3-4. IS FORGETFUL AT TIMES. PLEASANT & COOPERATIVE WITH ALL CARE. SHE WILL LIKELY BE ABLE TO DC HOME WITH HH UPON HOSPITAL DC.
--- NOTE | 2022-11-02 05:33 | NUR ---
SHIFT SUMMARY A&OX3-4, FORGETFULL. VSS. ASSIST X 1 FWW TO BATHROOM. PT C/O HEADACHE, PRN TYLENOL AND IBUPROFEN PER MED ORDER. TOLERATING WELL. DRSG CHANGED TO ABDOMEN WITH ABD PAD AND TAPE, C/D/I. ILEOSTOMY BAG PATENT WITH LOOSE BROWN STOOL OUTPUT. WILL CONTINUE TO MONITOR.
[2022-11-02] MEDS ORDERED: AMOCLA875 PO (12:48)
--- NOTE | 2022-11-02 14:53 | NUR ---
Patient doing well, reports improved appetite. No signs s/sx of COVID noted. Pt worked with therapy today, practiced walking up steps. PT stated pt is stable for discharge and recommends DC home w/ HH. MD ordered discharge, HH [facility] w/ f/u with pt. Removed IV from left wrist. WC transport came at 1445 and took patient home.
== END 2022-11-02 14:45 | disposition home health service (06) | DRG 871 ==
LOC: ER 16:02 → ICUW 20:32 → ICUE 20:32 → MEDS 20:32 → ICUE 22:11 → MEDS 10-30 22:10
PROVIDERS: Internal Medicine Critical Care Medicine; Student in an Organized Health Care Education/Training Program; ADMIT Family Medicine
PROC: 3E033XZ Introduction of Vasopressor into Peripheral Vein, Percutaneous Approach (ICD-10-PCS; principal; 2022-10-27)
PROC: 3E03329 Introduction of Other Anti-infective into Peripheral Vein, Percutaneous Approach (ICD-10-PCS; 2022-10-27)
PROC: XW033E5 Introduction of Remdesivir Anti-infective into Peripheral Vein, Percutaneous Approach, New Technology Group 5 (ICD-10-PCS; 2022-10-27)
PROC: 30233N1 Transfusion of Nonautologous Red Blood Cells into Peripheral Vein, Percutaneous Approach (ICD-10-PCS; 2022-10-27)
PROC: 02HV33Z Insertion of Infusion Device into Superior Vena Cava, Percutaneous Approach (ICD-10-PCS; 2022-10-27)
PROC: 5A1935Z Respiratory Ventilation, Less than 24 Consecutive Hours (ICD-10-PCS; 2022-10-27)
PROC: 0BH17EZ Insertion of Endotracheal Airway into Trachea, Via Natural or Artificial Opening (ICD-10-PCS; 2022-10-27)
DX: A41.89 Other specified sepsis (principal); G92.8 Other toxic encephalopathy; J96.01 Acute respiratory failure with hypoxia; R65.21 Severe sepsis with septic shock; U07.1 COVID-19; J96.02 Acute respiratory failure with hypercapnia; N39.0 Urinary tract infection, site not specified; T81.31XA Disruption of external operation (surgical) wound, not elsewhere classified, initial encounter; T85.79XA Infection and inflammatory reaction due to other internal prosthetic devices, implants and grafts, initial encounter; Z68.42 Body mass index [BMI] 45.0-49.9, adult; E72.20 Disorder of urea cycle metabolism, unspecified; E87.1 Hypo-osmolality and hyponatremia; E87.29 Other acidosis; E03.9 Hypothyroidism, unspecified; B95.7 Other staphylococcus as the cause of diseases classified elsewhere; D64.9 Anemia, unspecified; B96.4 Proteus (mirabilis) (morganii) as the cause of diseases classified elsewhere; F32.A Depression, unspecified; M48.00 Spinal stenosis, site unspecified; G43.909 Migraine, unspecified, not intractable, without status migrainosus; K43.5 Parastomal hernia without obstruction or gangrene; K21.9 Gastro-esophageal reflux disease without esophagitis; E66.01 Morbid (severe) obesity due to excess calories; E88.09 Other disorders of plasma-protein metabolism, not elsewhere classified; K76.0 Fatty (change of) liver, not elsewhere classified; F41.9 Anxiety disorder, unspecified; Z87.19 Personal history of other diseases of the digestive system; Z88.8 Allergy status to other drugs, medicaments and biological substances; Z93.2 Ileostomy status; Z88.5 Allergy status to narcotic agent; Z91.048 Other nonmedicinal substance allergy status; Z79.899 Other long term (current) drug therapy; Z90.49 Acquired absence of other specified parts of digestive tract; Z98.890 Other specified postprocedural states; Z93.3 Colostomy status; Z79.01 Long term (current) use of anticoagulants; Z90.710 Acquired absence of both cervix and uterus
CPT/HCPCS: 0241U; 31500; 36415; 36430; 36556; 36600; 51702; 70450; 71045; 71260; 74177; 80048; 80053; 81001; 82140; 82607; 82728; 82746; 82803; 83540; 83550; 83605; 83690; 83735; 84100; 84443; 84484; 85014; 85018; 85025; 85379; 86850; 86900; 86901; 86923; 87040; 87070; 87077; 87086; 87186; 87205; 93005; 93010; 94002; 94003; 96365-59; 96366-59; 96367-59; 96368; 97110; 97116; 97163; 97166; 97530; 97535; 99291-25; A9270; C1751; C9113; J0248; J0330; J1720; J2185; J2405; J2704; J3370; J7040; J7050; J7060; J7120; P9016; Q9967

== ENCOUNTER → 2022-11-19 | Outpatient (CLI) | payer OTHER ==
[~2022-11-19] MED LIST changes: +AMOCLA875 PO; +EUTHYROX125 MCG PO; +LASIX20 M2 PO
[2022-11-19 12:26] LABS: Hematocrit 26.1 % (33.0-51.0); Hemoglobin 7.2 g/dL (11.5-16.0); Mean Corpuscular HGB Conc 27.6 g/dL (31.5-36.5); Mean Corpuscular Volume 87 fL (80-100); Platelet Count 344 K/mm3 (150-400); RDW Coefficient Variation 21.1 % (11.7-14.2); RDW Standard Deviation 65.1 fL (35.1-46.3); White Blood Cell Count 5.47 K/mm3 (4.00-11.30)
[2022-11-19 14:04] LABS: Percent Saturation 5.3 % (15.0-50.0)
== END | disposition home or self-care (01) ==
LOC: LAB SHORT 10:30
PROVIDERS: Hospitalist
DX: T81.49XA Infection following a procedure, other surgical site, initial encounter (principal); D64.9 Anemia, unspecified; G92.8 Other toxic encephalopathy; R07.1 Chest pain on breathing; E66.01 Morbid (severe) obesity due to excess calories; Z93.2 Ileostomy status; Z79.899 Other long term (current) drug therapy
CPT/HCPCS: 82607; 82728; 82746; 83540; 83550; 85027

== ENCOUNTER 2022-11-23 04:09 | Inpatient (IN) | payer OTHER ==
[~2022-11-23] VITALS: Ht 157.5 cm; Wt 111.2 kg
[2022-11-23] MEDS ORDERED: ROSU10TA PO (04:30)
[2022-11-23] MEDS ORDERED: POTA10T PO (04:30)
[2022-11-23] MEDS ORDERED: FURO20 PO (04:30)
[2022-11-23] MEDS ORDERED: MAGCHL64ER (04:31)
[2022-11-23 05:01] LABS: BASOPHILS ABSOLUTE AUTO 0.03 K/mm3 (0.00-0.23); BASOPHILS PERCENT AUTO 1 % (0-2); EOSINOPHILS PERCENT AUTO 5 % (0-6); Hematocrit 24.7 % (33.0-51.0); IMMATURE GRAN ABSOLUTE AUTO 0.02 K/mm3 (0.00-0.10); IMMATURE GRAN PERCENT AUTO 0 % (0-1); LYMPHOCYTES ABSOLUTE AUTO 1.72 K/mm3 (0.84-5.20); LYMPHOCYTES PERCENT AUTO 29 % (21-46); MONOCYTES ABSOLUTE AUTO 0.44 K/mm3 (0.16-1.47); MONOCYTES PERCENT AUTO 7 % (4-13); Mean Corpuscular HGB 24.1 pg (26.0-34.0); Mean Corpuscular HGB Conc 28.3 g/dL (31.5-36.5); Mean Corpuscular Volume 85 fL (80-100); Mean Platelet Volume 10.9 fL (9.1-12.4); NEUTROPHILS ABSOLUTE AUTO 3.42 K/mm3 (1.96-9.15); NEUTROPHILS PERCENT AUTO 58 % (41-73); Platelet Count 378 K/mm3 (150-400); RDW Coefficient Variation 20.5 % (11.7-14.2); RDW Standard Deviation 62.8 fL (35.1-46.3); White Blood Cell Count 5.93 K/mm3 (4.00-11.30)
[2022-11-23 05:03] LABS: Source, Urine Straight Cath
[2022-11-23 05:05] LABS: Bilirubin, Urine Neg (Neg); Blood, Urine Neg (Neg); Glucose Qualitative, Urine Neg (Neg); Ketones, Urine Neg (Neg); Leukocyte Esterase, Urine Neg (Neg); Nitrite, Urine Neg (Neg); Protein, Urine Neg (Neg); Urobilinogen, Urine NORM (Normal)
[2022-11-23 05:11] LABS: Albumin, Blood 2.7 g/dL (3.4-5.0); Albumin/Globulin Ratio 0.7 (0.8-1.8); Bilirubin, Total 0.3 mg/dL (0.1-1.0); Bun/Creatinine Ratio 17.8 (12.0-20.0); Calcium, Blood 8.7 mg/dL (8.5-10.1); Creatinine, Blood 0.84 mg/dL (0.40-1.00); Globulin, Blood 3.9 g/dL (2.2-4.0); Total Protein, Blood 6.6 g/dL (6.4-8.2)
[2022-11-23 05:32] LABS: Appearance, Urine Clear (Clear); Color, Urine Yellow (P-Yellow)
--- NOTE | 2022-11-23 14:12 | NUR ---
PT ARRIVES VIA GURNEY TO ICU 5 AT 1300. SHE IS ALERT AND ORIENTED, SHE IS ABLE TO ASSIST IN TURNING TO CLEAR LINENS FROM UNDER HER. PIV IN RIGHT A/C, AND ONE IN LEFT INSIDE WRIST. IV FLUID RUNNING AT 150ML/HR. PUREWICK DEVICE IN PLACE. PT WITH ILEOSTOMY, EMPTIED OF SEMI FORMED STOOL. WOUND ON ABDOMEN TO RIGHT OF UMBILICUS WITH PURULENT DRAINAGE SOAKING SEVERAL ABD PADS. AREA CLEANED AND REDRESSED. PT DENIES ANY PAIN OR DISCOMFORT, SAYS SHE IS HUNGRY AND A BIT TIRED. BP STABLE AT 96/50, HEART RATE 73.
--- NOTE | 2022-11-23 15:17 | NUR ---
PT IS QUIETLY RESTING AND HER BLOOD PRESSURE IS SOFT, WITH MAP ~58. HEART RATE AND SATURATIONS WNL.
--- NOTE | 2022-11-23 18:16 | NUR ---
PT IS CURRENTLY RESTING, DENIES ANY COMPLAINTS. BP REMAINS LABILE, CURRENTLY AT 95/57 (70). IV FLUIDS CONTINUE AT 150ML/HR WITH ZOSYN OVER [address], ILEOSTOMY UNCHANGED. ABDOMINAL DRESSING IS C/D/I. FEET REMAIN WITH 2+ EDEMA TO MID CALF AND TENDERNESS WITH TOUCH. NO REDNESS OR WARMTH NOTED.
--- NOTE | 2022-11-23 18:37 | NUR ---
PT REQUESTED TYLENOL FOR MIGRAINE HEADACHE, STATES THAT USUALLY DOES THE TRICK.
--- NOTE | 2022-11-23 20:25 | NUR ---
ASSUMED CARE OF PT AT 1900 PT AWAKE IN BED WITH NO VISITORS AT THIS TIME. NEURO- A/O X4. ABLE TO MAKE NEEDS KNOWN. RESP- 2LMP NC RUNNING AT THIS TIME FOR PT COMFORT. SPO2 @ 95%. CARDIAC- HYPOTENSIVE WITH MAP IN UPPER 50'S. SHORTLY AFTER MAP REY TO 67. SBP 80'S-90'S. REPORT OF THIS BEING PT BASELINE AT HOME WITH ALL DR'S KNOWING. GI, - PUREWICK IN PLACE WITH LOW CONSTANT SUCTION. PT REPORTS FREQUENT URINATION AND "LEAKING DUE TO ALL THE FLUIDS SHE IS GETTING". REPORT FROM DAYSWYFT RN STATING PT HAS NOT BEEN OUT OF BED DURING THEY DAY. PT AGREED TO WEAR THE SCD'S TONIGHT. NS @150 MLS/HR TO POWERGLIDE IN L UPPER ARM. PRECEDEX ON STANDBY. SEE FULL ASSESSMENT FOR FURHTER INFORMATION.
[2022-11-24 06:06] LABS: BASOPHILS ABSOLUTE AUTO 0.02 K/mm3 (0.00-0.23); BASOPHILS PERCENT AUTO 1 % (0-2); EOSINOPHILS ABSOLUTE AUTO 0.42 K/mm3 (0.00-0.68); EOSINOPHILS PERCENT AUTO 10 % (0-6); Hematocrit 23.1 % (33.0-51.0); Hemoglobin 6.5 g/dL (11.5-16.0); IMMATURE GRAN ABSOLUTE AUTO 0.02 K/mm3 (0.00-0.10); IMMATURE GRAN PERCENT AUTO 1 % (0-1); LYMPHOCYTES ABSOLUTE AUTO 1.21 K/mm3 (0.84-5.20); LYMPHOCYTES PERCENT AUTO 28 % (21-46); MONOCYTES PERCENT AUTO 9 % (4-13); Mean Corpuscular HGB 23.9 pg (26.0-34.0); Mean Corpuscular HGB Conc 28.1 g/dL (31.5-36.5); Mean Corpuscular Volume 85 fL (80-100); Mean Platelet Volume 9.8 fL (9.1-12.4); NEUTROPHILS ABSOLUTE AUTO 2.33 K/mm3 (1.96-9.15); NEUTROPHILS PERCENT AUTO 53 % (41-73); Platelet Count 287 K/mm3 (150-400); RDW Standard Deviation 61.8 fL (35.1-46.3); Red Blood Cell Count 2.72 M/mm3 (3.80-5.20)
--- NOTE | 2022-11-24 06:19 | NUR ---
END OF SHIFT SUMMARY NEURO- PT RESTED MOST OF THE NIGHT WELL. A/O X4. RESP- SPO2 >92% WITH ONE APNEIC EPISODE THAT TANKED HER SPO2 IN THE 70'S. PT DID NOT RESPOND TO VERBAL STIMULI. THIS RN STERNAL RUBBED PT WITH LITTLE TO NO RESULT OF WAKEFULLNESS. JOSHUA RN THEN INITIATED PAIN IN RIGHT HAND FINGERNAIL AND PT WOKE UP ANGRY BUT BREATHING. SPO2 INCREASED WNL WITHIN A MINUTE AFTER PT WAS WAKENED. CARDIAC- BP AND HR AT BASELINE WITH FOREARM BP CUFF. SBP 100'S HR 80'S. GI, - ILIOSTOMY DRAINED ONCE AND NEW BAG PLACED. DRAINAGE IS LIQUID DARK BROWN. PT IS ABLE TO USE BEDSIDE COMMODE TO URINATE WITHOUT ISSUE. NS RUNNING AT 150 MLS/HR TO POWERGLIDE IN LEFT UPPER ARM WILL CONTINUE TO MONITOR UNTIL REPORT GIVEN TO AM RN.
[2022-11-24 06:26] LABS: Bun/Creatinine Ratio 12.1 (12.0-20.0); Calcium, Blood 8.2 mg/dL (8.5-10.1); Creatinine, Blood 0.74 mg/dL (0.40-1.00); Potassium, Blood 3.9 mmol/L (3.5-5.5)
--- NOTE | 2022-11-24 07:52 | NUR ---
TRISTA IS UNDERSTANDING OF THE NEED FOR BLOOD. SHE SIGNED CONSENT FOR TRANSFUSION. ONE UNIT PRBC'S JUST STARTED, AFTER HELPING PT TO BSC. HER STRENGTH IS GOOD, ABLE TO REPOSITION HERSELF IN BED. LUNGS CLEAR, ABD.+, URINE CLEAR YELLOW, ILEOSTOMY BAG WITH MINIMAL BROWN LIQUID RETURN, ABD WOUND DRES- SING C/D/I. PG TO MIKE WITH GOOD FLOW. NO EVIDENCE OF TRANSFUSION REACTION. WILL CONTINUE TO MONITOR AND TREAT.
[2022-11-24 12:35] LABS: Base Excess Venous -1.5 mmol/L; Bicarbonate Venous 23.2 mmol/L (24.0-30.0); PCO2 Venous 43.5 mmHg (38-42); pH Blood Venous 7.35 (7.34-7.37)
--- NOTE | 2022-11-24 13:42 | NUR ---
ASSISTED PT UP TO BSC, SBA ONLY. SHE IS ABLE TO REPOSITION HERSELF IN BED, SHE IS USING HER SCD'S AFTER REINFORCED THE NEED.
--- NOTE | 2022-11-24 14:54 | NUR ---
TRISTA WAS SLEEPING AND HAD AN APNEA EPISODE WITH HER SATS @ 70%. WENT IN TO WAKE HER AND ENCOURAGE HER TO BREATHE AND SHE WAS VERBALLY ANGRY AND ASKED TO BE LEFT ALONE. WHEN INFORMED THAT HER OXYGEN LEVEL WAS AT 70 SHE YELLED, "WELL TURN UP THE OXYGEN, WOULD YA?" PT EDUCATION RE: OXYGENATION AND APNEA. SHE RETURNED TO SLEEPING.
--- NOTE | 2022-11-24 18:18 | NUR ---
TRISTA HAS BEEN SLEEPING THE MAJORITY OF THE DAY. SHE WILL SAY THAT SHE IS CONCERNED THAT SHE WILL NEVER SLEEP AGAIN BECAUSE OF "THAT THING THAT HAPPENED LAST NIGHT". EDUCATION AGAIN REGARDING OUR ABILITY TO MONITOR HER AND THAT SHE IS SAFE. THE OVERNIGHT OXIMETRY STUDY WILL HAPPEN THIS EVENING. SHE WANTS TO BE SURE THAT THE MACHINE SHE GETS FOR HOME IS "THE QUIETEST AVAILABLE". HER BLOOD PRESSURE HAS REMAINED SBP 100'S THIS SHIFT, WITH THE ONE UNIT PRBC GIVEN. SHE HAS BEEN UP TO THE BSC WITH MINIMAL ASSIST, HER IV NS @ 75ML/HR CONTINUES IN THE MIKE PG. SCD'S TO BLE, CALL LIGHT IN REACH.
[2022-11-24 18:45] LABS: Hematocrit 27.4 % (33.0-51.0)
[2022-11-25 05:26] LABS: BASOPHILS ABSOLUTE AUTO 0.03 K/mm3 (0.00-0.23); BASOPHILS PERCENT AUTO 1 % (0-2); EOSINOPHILS ABSOLUTE AUTO 0.26 K/mm3 (0.00-0.68); EOSINOPHILS PERCENT AUTO 6 % (0-6); Hematocrit 27.7 % (33.0-51.0); Hemoglobin 7.8 g/dL (11.5-16.0); IMMATURE GRAN ABSOLUTE AUTO 0.05 K/mm3 (0.00-0.10); IMMATURE GRAN PERCENT AUTO 1 % (0-1); LYMPHOCYTES ABSOLUTE AUTO 1.38 K/mm3 (0.84-5.20); LYMPHOCYTES PERCENT AUTO 33 % (21-46); MONOCYTES ABSOLUTE AUTO 0.35 K/mm3 (0.16-1.47); MONOCYTES PERCENT AUTO 9 % (4-13); Mean Corpuscular HGB Conc 28.2 g/dL (31.5-36.5); Mean Corpuscular Volume 85 fL (80-100); Mean Platelet Volume 10.2 fL (9.1-12.4); NEUTROPHILS ABSOLUTE AUTO 2.06 K/mm3 (1.96-9.15); NEUTROPHILS PERCENT AUTO 50 % (41-73); Platelet Count 327 K/mm3 (150-400); RDW Coefficient Variation 19.7 % (11.7-14.2); RDW Standard Deviation 60.1 fL (35.1-46.3); Red Blood Cell Count 3.25 M/mm3 (3.80-5.20); White Blood Cell Count 4.13 K/mm3 (4.00-11.30)
[2022-11-25 05:48] LABS: Albumin, Blood 2.3 g/dL (3.4-5.0); Anion Gap 3 mmol/L (6-16); Blood Urea Nitrogen 7 mg/dL (8-24); CO2, Blood 24 mmol/L (21-32); Calcium, Blood 8.4 mg/dL (8.5-10.1); Chloride, Blood 112 mmol/L (98-108); Creatinine, Blood 0.78 mg/dL (0.40-1.00); Glomerular Filtration Rate 82 (60-); Glucose, Blood 86 mg/dL (70-99); Phosphorus, Blood 2.9 mg/dL (2.5-4.9); Potassium, Blood 3.8 mmol/L (3.5-5.5); Sodium, Blood 139 mmol/L (136-145)
--- NOTE | 2022-11-25 06:11 | NUR ---
SHIFT SUMMARY OVERNIGHT, PATIENT ALERT AND ORIENTED X4. MAE. CAMPOS. GENERALIZED WEAKNESS. SR ON MONITOR, HR 60-70S. SBP 100-120S, MAPS >65. DEPENDENT EDEMA TO BLE. ENCOURAGED ELEVATION, BUT PATIENT DECLINED DESPITE EDUCATIONG. AFEBRILE. SLEEP STUDY PERFORMED; LOWEST DESAT TO 74%. OXYGEN TITRATED PER RT; ON 5L NC, PATIENT HAD NO FURTHER DESATURATIONS. ILEOSTOMY TO RLQ. UP TO BCS TO VOID, ADEQUATE URINE OUTPUT. ABDOMINAL WOUND WITH SATURATED DRESSING FROM PURULENT DRAINAGE AT BEGINNING OF SHIFT; ABD CHANGED. ATTEMPTED TO HELP PATIENT TURN LEFT AND RIGHT IN BED, BUT PATIENT REFUSED, STATING HER BACK HURTS TOO MUCH WHEN SHE DOES NOT LAY FLAT. EDUCATED ON IMPORTANCE OF PRESSURE REDISTRIBUTION. CONTINUES ON MAINTENANCE IVF VIA POWERGLIDE. HEMOGLOBIN STABLE THIS MORNING ON AM LABS FOLLOWING 1U PRBC YESTERDAY. CALL LIGHT WITHIN REACH. RESTING COMFORTABLY AT THIS TIME.
--- NOTE | 2022-11-25 07:30 | NUR ---
ASSUMED CARE OF PT AT 0715 BEDSIDE REPORT RECIEVED FROM NOC SHIFT RN. PT APPEARS TO BE RESTING COMFORTABLY. PT HAD SLEEP STUDY LAST NOC DETERMINING SHE NEEDED 5L VIA NC TO MAINTAIN O2 SAT > 90% DURING REST. SENIOR SECURITY ANALYST NOTIFIED. PLAN TODAY IS CONSULT FROM SURGEON AND THEN HOME WHEN SURGEON DETERMINES PT IS STABLE FROM A WOUND/INFECTION STANDPOINT. SEE ICU FLOWSHEETS FOR FURTHER ASSESSMENT DATA. RN TO CONTINUE TO FOLLOW.
--- NOTE | 2022-11-25 11:08 | NUR ---
CALL PLACED TO DR. CASTILLO CONFIRMED MD IS AWARE OF CONSULT. DR. CASTILLO PLANS TO SEE PT TODAY TO EXAMINE ABDOMINAL WOUND AND MAKE RECOMMEDATIONS APPROPRIATE. INFORMED PT IS SURGICAL STATUS. RN TO CONTINUE TO MONITOR.
--- NOTE | 2022-11-25 12:45 | NUR ---
DR. CASTILLO TO BEDSIDE SURGICAL CONSULT, DR. CASTILLO TO BEDSIDE TO EVALUATE WOUND, GIVE D/C RECOMMENDATIONS. OK TO D/C HOME FROM SURGICAL STANDPOINT PER DR. CASTILLO. ATB RECOMMENDATIONS FOR AUGMENTIN PO X5 DAYS AND F/U IN WOUND CLINIC PREVIOUSLY ESTABLISHED. DR. YBARRA NOTIFIED OF ABOVE INFORMATION. PT WILL NEED HOME O2 BASED ON SLEEP STUDY DONE OVERNIGHT 11/24-11/25. CARE MANAGEMENT NOTIFIED OF LIKELY D/C HOME TODAY. DR. YBARRA TO EVALUATE PT AT BEDSIDE PRIOR TO WRITING ORDERS. HOME O2 EVAL NOT NEEDED FOR HOME O2 ORDER DUE TO SLEEP STUDY RESULTS. RN TO CONTINUE TO MONITOR.
--- NOTE | 2022-11-25 14:45 | NUR ---
Upon receiving a referral for spiritual care, I visit patient. She tells me that she will d/c to home today. She explains about her many health complications and about her current medical problems. She then shares about the many family deaths that occurred in 2010, incuding her mother, father and . She talks about how her and her son live together now and that he is disabled and so they try to take care of each other. She speaks of the strong otf they have mostly because of their beloved Rotor Coil Taper Sav from [facility]. She states that her otf for challenging circumstances has increased. I provide thereapeutic listening, gentle apprise counselor, grief support and prayer. Patient responded well and showed signs of being encouraged in her otf.
[2022-11-25] MEDS ORDERED: DOCU100 PO (15:13)
[2022-11-25] MEDS ORDERED: Acetaminophen650 M1 PO (15:13)
[2022-11-25] MEDS ORDERED: FERSU300 PO (15:14)
[2022-11-25] MEDS ORDERED: AMOCLA875 PO (15:15)
[2022-11-25] MEDS ORDERED: LACT (15:17)
[2022-11-25] MEDS ORDERED: VISBIOME 112.51 EACH PO (15:19)
--- NOTE | 2022-11-25 16:26 | NUR ---
DISCHARGED HOME AT 1620 REVIEWED D/C PACKET INCLUDING MEDICATIONS, FOLLOW UP APPOINTMENTS AND TEACHING WITH PT AT BEDSIDE. PT VERBALIZES UNDERSTANDING. SON TO TRANSPORT PT HOME IN PERSONAL VEHICLE. TRANSPORTED VIA W/C BY PCT WITH 2 HOME 02 TANKS. ONLY NEEDS O2 AT NIGHT/WHILE SLEEPING. SIGNED D/C TEACHING VERIFICATION FILED IN CHART.
== END 2022-11-25 16:20 | disposition home or self-care (01) | DRG 872 ==
LOC: ER 04:09 → ICUE 11:57 → ICUW 11:57 → ICUE 12:58
PROVIDERS: Student in an Organized Health Care Education/Training Program; ADMIT Internal Medicine
PROC: 3E03329 Introduction of Other Anti-infective into Peripheral Vein, Percutaneous Approach (ICD-10-PCS; principal; 2022-11-23)
PROC: 30233N1 Transfusion of Nonautologous Red Blood Cells into Peripheral Vein, Percutaneous Approach (ICD-10-PCS; 2022-11-23)
PROC: 5A09357 Assistance with Respiratory Ventilation, Less than 24 Consecutive Hours, Continuous Positive Airway Pressure (ICD-10-PCS; 2022-11-24)
DX: A41.9 Sepsis, unspecified organism (principal); E87.1 Hypo-osmolality and hyponatremia; E87.20 Acidosis, unspecified; Z68.41 Body mass index [BMI] 40.0-44.9, adult; E86.9 Volume depletion, unspecified; D50.9 Iron deficiency anemia, unspecified; E03.9 Hypothyroidism, unspecified; F32.A Depression, unspecified; M48.00 Spinal stenosis, site unspecified; R09.02 Hypoxemia; G43.909 Migraine, unspecified, not intractable, without status migrainosus; E66.01 Morbid (severe) obesity due to excess calories; R00.1 Bradycardia, unspecified; K21.9 Gastro-esophageal reflux disease without esophagitis; F41.9 Anxiety disorder, unspecified; K76.0 Fatty (change of) liver, not elsewhere classified; Z98.890 Other specified postprocedural states; Z90.710 Acquired absence of both cervix and uterus; Z88.5 Allergy status to narcotic agent; Z88.8 Allergy status to other drugs, medicaments and biological substances; Z91.048 Other nonmedicinal substance allergy status; Z79.01 Long term (current) use of anticoagulants; Z79.899 Other long term (current) drug therapy; Z93.3 Colostomy status; Z90.49 Acquired absence of other specified parts of digestive tract; Z93.2 Ileostomy status; Z87.19 Personal history of other diseases of the digestive system; Z86.16 Personal history of COVID-19
CPT/HCPCS: 36415; 36430; 51701; 71045; 74177; 80048; 80053; 80069; 81003; 82803; 83605; 84443; 84484; 85014; 85018; 85025; 86850; 86900; 86901; 86923; 87040; 93005; 93010; 94762; 96361-59; 96365-59; 99285-25; A9270; C1751; J2405; J2543; J7030; P9016; Q9967

== ENCOUNTER → 2022-12-10 | Outpatient (CLI) | payer OTHER ==
[~2022-12-10] MED LIST changes: +Acetaminophen650 M1 PO; +FERSU300 PO; +FURO20 PO; +LACT; +MAGCHL64ER; +POTA10T PO
[2022-12-10 17:50] LABS: BASOPHILS ABSOLUTE AUTO 0.02 K/mm3 (0.00-0.23); BASOPHILS PERCENT AUTO 0 % (0-2); EOSINOPHILS ABSOLUTE AUTO 0.31 K/mm3 (0.00-0.68); EOSINOPHILS PERCENT AUTO 6 % (0-6); Hemoglobin 9.7 g/dL (11.5-16.0); IMMATURE GRAN ABSOLUTE AUTO 0.01 K/mm3 (0.00-0.10); IMMATURE GRAN PERCENT AUTO 0 % (0-1); LYMPHOCYTES ABSOLUTE AUTO 1.11 K/mm3 (0.84-5.20); LYMPHOCYTES PERCENT AUTO 21 % (21-46); MONOCYTES PERCENT AUTO 8 % (4-13); Mean Corpuscular HGB 27.2 pg (26.0-34.0); Mean Corpuscular HGB Conc 29.4 g/dL (31.5-36.5); Mean Corpuscular Volume 92 fL (80-100); Mean Platelet Volume 11.4 fL (9.1-12.4); NEUTROPHILS ABSOLUTE AUTO 3.51 K/mm3 (1.96-9.15); NEUTROPHILS PERCENT AUTO 65 % (41-73); Platelet Count 256 K/mm3 (150-400); RDW Coefficient Variation 24.3 % (11.7-14.2); RDW Standard Deviation 81.7 fL (35.1-46.3); Red Blood Cell Count 3.57 M/mm3 (3.80-5.20); White Blood Cell Count 5.36 K/mm3 (4.00-11.30)
[2022-12-10 22:22] LABS: Albumin, Blood 2.9 g/dL (3.4-5.0); Albumin/Globulin Ratio 0.7 (0.8-1.8); Bilirubin, Total 0.2 mg/dL (0.1-1.0); Bun/Creatinine Ratio 13.9 (12.0-20.0); Calcium, Blood 8.8 mg/dL (8.5-10.1); Creatinine, Blood 0.79 mg/dL (0.40-1.00); Potassium, Blood 4.5 mmol/L (3.5-5.5); Thyroid Stimulating Hormone 3.04 uIU/mL (0.360-4.800); Total Protein, Blood 6.9 g/dL (6.4-8.2)
== END | disposition home or self-care (01) ==
LOC: LAB SHORT 15:50 → LAB 15:50
PROVIDERS: Physician Assistant
DX: D50.0 Iron deficiency anemia secondary to blood loss (chronic) (principal); E03.8 Other specified hypothyroidism; R30.0 Dysuria
CPT/HCPCS: 80053; 84443; 85025

== ENCOUNTER 2022-12-26 00:48 | Day surgery (SDC) | payer OTHER | END 2022-12-26 22:43 | disposition home or self-care (01) | LOC: WOUND 00:48 | DX: T81.32XA Disruption of internal operation (surgical) wound, not elsewhere classified, initial encounter (principal); T81.41XA Infection following a procedure, superficial incisional surgical site, initial encounter; L02.211 Cutaneous abscess of abdominal wall; Z93.2 Ileostomy status; K43.9 Ventral hernia without obstruction or gangrene | CPT/HCPCS: G0463 ==

== ENCOUNTER → 2023-01-01 | Outpatient (CLI) | payer OTHER ==
[2023-01-01 18:21] LABS: BASOPHILS ABSOLUTE AUTO 0.06 K/mm3 (0.00-0.23); BASOPHILS PERCENT AUTO 1 % (0-2); EOSINOPHILS ABSOLUTE AUTO 0.17 K/mm3 (0.00-0.68); EOSINOPHILS PERCENT AUTO 3 % (0-6); Hematocrit 31.4 % (33.0-51.0); Hemoglobin 9.3 g/dL (11.5-16.0); IMMATURE GRAN ABSOLUTE AUTO 0.09 K/mm3 (0.00-0.10); IMMATURE GRAN PERCENT AUTO 2 % (0-1); LYMPHOCYTES ABSOLUTE AUTO 1.24 K/mm3 (0.84-5.20); LYMPHOCYTES PERCENT AUTO 22 % (21-46); MONOCYTES ABSOLUTE AUTO 0.45 K/mm3 (0.16-1.47); MONOCYTES PERCENT AUTO 8 % (4-13); Mean Corpuscular HGB 27.8 pg (26.0-34.0); Mean Corpuscular HGB Conc 29.6 g/dL (31.5-36.5); Mean Corpuscular Volume 94 fL (80-100); NEUTROPHILS ABSOLUTE AUTO 3.67 K/mm3 (1.96-9.15); NEUTROPHILS PERCENT AUTO 65 % (41-73); RDW Coefficient Variation 19.6 % (11.7-14.2); RDW Standard Deviation 67.2 fL (35.1-46.3); Red Blood Cell Count 3.34 M/mm3 (3.80-5.20); White Blood Cell Count 5.68 K/mm3 (4.00-11.30)
[2023-01-01 18:52] LABS: Ferritin, Serum 25 ng/mL (8-252); Iron Serum 26 ug/dL (50-170); Percent Saturation 7.5 % (15.0-50.0); Total Iron Binding Capacity 346 ug/dL (250-450)
[2023-01-01 18:53] LABS: Alanine Aminotransfer (ALT/SGP 19 U/L (12-78); Albumin, Blood 2.6 g/dL (3.4-5.0); Albumin/Globulin Ratio 0.6 (0.8-1.8); Alk Phos 86 U/L (50-136); Anion Gap 7 mmol/L (6-16); Aspartate Aminotrans (AST/SGOT 13 U/L (12-37); Bilirubin, Total <0.1 mg/dL (0.1-1.0); Blood Urea Nitrogen 11 mg/dL (8-24); Bun/Creatinine Ratio 14.6 (12.0-20.0); CO2, Blood 24 mmol/L (21-32); Chloride, Blood 108 mmol/L (98-108); Creatinine, Blood 0.75 mg/dL (0.40-1.00); Globulin, Blood 4.2 g/dL (2.2-4.0); Glomerular Filtration Rate 85 (60-); Glucose, Blood 97 mg/dL (70-99); Potassium, Blood 3.8 mmol/L (3.5-5.5); Sodium, Blood 139 mmol/L (136-145); Total Protein, Blood 6.8 g/dL (6.4-8.2)
[2023-01-01 19:52] LABS: Mean Platelet Volume 10.8 fL (9.1-12.4); Platelet Count 260 K/mm3 (150-400)
== END | disposition home or self-care (01) ==
LOC: LAB SHORT 15:00 → LAB 15:00
PROVIDERS: Physician Assistant
DX: D50.0 Iron deficiency anemia secondary to blood loss (chronic) (principal); R63.4 Abnormal weight loss
CPT/HCPCS: 80053; 82728; 83540; 83550; 85025; 86140

== ENCOUNTER 2023-01-24 02:18 | Day surgery (SDC) | payer OTHER | END 2023-01-24 22:49 | disposition home or self-care (01) | LOC: WOUND 02:18 | DX: T81.32XA Disruption of internal operation (surgical) wound, not elsewhere classified, initial encounter (principal); T81.41XA Infection following a procedure, superficial incisional surgical site, initial encounter; L02.211 Cutaneous abscess of abdominal wall; Z93.2 Ileostomy status; K43.9 Ventral hernia without obstruction or gangrene; S31.102S Unspecified open wound of abdominal wall, epigastric region without penetration into peritoneal cavity, sequela | CPT/HCPCS: A9270; G0463 ==

== ENCOUNTER 2023-03-19 03:50 | Day surgery (SDC) | payer OTHER | END 2023-03-19 23:07 | disposition home or self-care (01) | LOC: WOUND 03:50 | DX: L02.211 Cutaneous abscess of abdominal wall (principal); T81.31XA Disruption of external operation (surgical) wound, not elsewhere classified, initial encounter; Y83.8 Other surgical procedures as the cause of abnormal reaction of the patient, or of later complication, without mention of misadventure at the time of the procedure; S31.102S Unspecified open wound of abdominal wall, epigastric region without penetration into peritoneal cavity, sequela; X58.XXXS Exposure to other specified factors, sequela; Z93.2 Ileostomy status; R77.0 Abnormality of albumin; K43.9 Ventral hernia without obstruction or gangrene | CPT/HCPCS: A9270; G0463 ==

== ENCOUNTER 2023-05-26 16:39 | Emergency (ER) | payer OTHER ==
[~2023-05-26] VITALS: Ht 157.5 cm; Wt 97.1 kg
[2023-05-26 17:42] LABS: BASOPHILS ABSOLUTE AUTO 0.02 K/mm3 (0.00-0.23); BASOPHILS PERCENT AUTO 1 % (0-2); EOSINOPHILS ABSOLUTE AUTO 0.01 K/mm3 (0.00-0.68); EOSINOPHILS PERCENT AUTO 0 % (0-6); Hemoglobin 13.5 g/dL (11.5-16.0); IMMATURE GRAN ABSOLUTE AUTO 0.03 K/mm3 (0.00-0.10); IMMATURE GRAN PERCENT AUTO 1 % (0-1); LYMPHOCYTES ABSOLUTE AUTO 0.73 K/mm3 (0.84-5.20); LYMPHOCYTES PERCENT AUTO 17 % (21-46); MONOCYTES ABSOLUTE AUTO 0.23 K/mm3 (0.16-1.47); MONOCYTES PERCENT AUTO 6 % (4-13); Mean Corpuscular HGB Conc 32.1 g/dL (31.5-36.5); Mean Corpuscular Volume 96 fL (80-100); Mean Platelet Volume 11.2 fL (9.1-12.4); NEUTROPHILS ABSOLUTE AUTO 3.19 K/mm3 (1.96-9.15); NEUTROPHILS PERCENT AUTO 76 % (41-73); Platelet Count 180 K/mm3 (150-400); RDW Coefficient Variation 14.2 % (11.7-14.2); RDW Standard Deviation 50.4 fL (35.1-46.3); Red Blood Cell Count 4.36 M/mm3 (3.80-5.20); White Blood Cell Count 4.21 K/mm3 (4.00-11.30)
[2023-05-26 17:54] LABS: Albumin, Blood 3.1 g/dL (3.4-5.0); Albumin/Globulin Ratio 0.8 (0.8-1.8); Bilirubin, Total 0.3 mg/dL (0.1-1.0); Bun/Creatinine Ratio 15.6 (12.0-20.0); Creatinine, Blood 0.64 mg/dL (0.40-1.00); Globulin, Blood 4.1 g/dL (2.2-4.0); Potassium, Blood 4.1 mmol/L (3.5-5.5); Total Protein, Blood 7.2 g/dL (6.4-8.2)
[2023-05-26 17:56] LABS: Source, Urine Straight Cath
[2023-05-26 18:06] LABS: Appearance, Urine Clear (Clear); Bilirubin, Urine Neg (Neg); Blood, Urine 1+ (Neg); Color, Urine Yellow (P-Yellow); Glucose Qualitative, Urine Neg (Neg); Ketones, Urine 4+ (Neg); Leukocyte Esterase, Urine Neg (Neg); Nitrite, Urine Neg (Neg); Protein, Urine Neg (Neg); Urobilinogen, Urine NORM (Normal)
[2023-05-26 18:17] LABS: Bacteria Rare /hpf; Mucus Light (0-Heavy); Squamous Epithelial Cells Few /hpf (Few)
[2023-05-26 18:39] LABS: Influenza A, PCR NEGATIVE (NEGATIVE); Influenza B, PCR NEGATIVE (NEGATIVE); Resp Syncytial Virus, PCR NEGATIVE (NEGATIVE); SARS-Cov-2 (COVID-19) PCR, MMC NEGATIVE (NEGATIVE)
[2023-05-26 20:30] VITALS: BP 121/47
[2023-05-26] MEDS ORDERED: PROC5 PO (20:55)
== END 2023-05-26 21:01 | disposition home or self-care (01) ==
LOC: ER 16:39
PROVIDERS: Emergency Medicine; Student in an Organized Health Care Education/Training Program
DX: B34.9 Viral infection, unspecified (principal); R11.2 Nausea with vomiting, unspecified; Z88.8 Allergy status to other drugs, medicaments and biological substances; Z88.5 Allergy status to narcotic agent; Z91.048 Other nonmedicinal substance allergy status; Z79.899 Other long term (current) drug therapy; E03.9 Hypothyroidism, unspecified; D64.9 Anemia, unspecified; G43.909 Migraine, unspecified, not intractable, without status migrainosus
CPT/HCPCS: 0241U; 51701; 71046; 80053; 81001; 83735; 85025; 93005; 93010; 96361-59; 96374-59; 96376-59; 99285-25; J0780; J7030

== ENCOUNTER 2023-05-30 06:35 | Emergency (ER) | payer OTHER ==
[~2023-05-30] VITALS: Ht 157.5 cm; Wt 102.5 kg
[~2023-05-30 06:35] MED LIST changes: +PROC5 PO
[2023-05-30 07:43] LABS: BASOPHILS ABSOLUTE AUTO 0.03 K/mm3 (0.00-0.23); BASOPHILS PERCENT AUTO 0 % (0-2); EOSINOPHILS PERCENT AUTO 0 % (0-6); Hematocrit 48.7 % (33.0-51.0); Hemoglobin 16.1 g/dL (11.5-16.0); IMMATURE GRAN ABSOLUTE AUTO 0.02 K/mm3 (0.00-0.10); IMMATURE GRAN PERCENT AUTO 0 % (0-1); LYMPHOCYTES ABSOLUTE AUTO 1.23 K/mm3 (0.84-5.20); LYMPHOCYTES PERCENT AUTO 14 % (21-46); MONOCYTES ABSOLUTE AUTO 0.84 K/mm3 (0.16-1.47); MONOCYTES PERCENT AUTO 10 % (4-13); Mean Corpuscular HGB 30.8 pg (26.0-34.0); Mean Corpuscular HGB Conc 33.1 g/dL (31.5-36.5); Mean Corpuscular Volume 93 fL (80-100); NEUTROPHILS ABSOLUTE AUTO 6.74 K/mm3 (1.96-9.15); NEUTROPHILS PERCENT AUTO 76 % (41-73); Platelet Count 219 K/mm3 (150-400); RDW Standard Deviation 48.2 fL (35.1-46.3); Red Blood Cell Count 5.22 M/mm3 (3.80-5.20); White Blood Cell Count 8.86 K/mm3 (4.00-11.30)
[2023-05-30 07:53] LABS: Magnesium, Blood 2.2 mg/dL (1.6-2.4)
[2023-05-30 07:57] LABS: Alanine Aminotransfer (ALT/SGP 19 U/L (12-78); Albumin, Blood 3.5 g/dL (3.4-5.0); Albumin/Globulin Ratio 0.8 (0.8-1.8); Alk Phos 97 U/L (50-136); Anion Gap 8 mmol/L (6-16); Aspartate Aminotrans (AST/SGOT 36 U/L (12-37); Bilirubin, Direct <0.1 mg/dL (0.0-0.3); Bilirubin, Indirect Unable to Calculate mg/dL (0.1-0.7); Bilirubin, Total 0.5 mg/dL (0.1-1.0); Blood Urea Nitrogen 20 mg/dL (8-24); Bun/Creatinine Ratio 27.1 (12.0-20.0); CO2, Blood 25 mmol/L (21-32); Calcium, Blood 9.5 mg/dL (8.5-10.1); Chloride, Blood 105 mmol/L (98-108); Creatinine, Blood 0.74 mg/dL (0.40-1.00); Globulin, Blood 4.6 g/dL (2.2-4.0); Glomerular Filtration Rate 86 (60-); Glucose, Blood 100 mg/dL (70-99); Potassium, Blood 3.7 mmol/L (3.5-5.5); Sodium, Blood 138 mmol/L (136-145); Total Protein, Blood 8.1 g/dL (6.4-8.2)
[2023-05-30] MEDS ORDERED: ONDA4ODT MM (13:10)
[2023-05-30] MEDS ORDERED: METO10 PO (13:10)
[2023-05-30] MEDS ORDERED: PROM12.5S PR (13:10)
[2023-05-30 15:00] VITALS: BP 142/82
== END 2023-05-30 15:25 | disposition home or self-care (01) ==
LOC: ER 06:35
PROVIDERS: Student in an Organized Health Care Education/Training Program
DX: K29.80 Duodenitis without bleeding (principal); E86.0 Dehydration; G43.909 Migraine, unspecified, not intractable, without status migrainosus; B34.9 Viral infection, unspecified; D64.9 Anemia, unspecified; E03.9 Hypothyroidism, unspecified; Z88.8 Allergy status to other drugs, medicaments and biological substances; Z88.5 Allergy status to narcotic agent; Z91.048 Other nonmedicinal substance allergy status; Z79.899 Other long term (current) drug therapy
CPT/HCPCS: 74177; 80048; 80076; 83690; 83735; 85025; 96361; 96374-59; 96375; 99285-25; A9270; J0696; J0780; J1790; J1885; J2405; J2765; J7030; J7120; Q9967

== ENCOUNTER 2023-05-30 20:09 | Inpatient (IN) | payer OTHER ==
[~2023-05-30] VITALS: Ht 157.5 cm; Wt 97.9 kg
[~2023-05-30 20:09] MED LIST changes: +PROM12.5S PR
[2023-05-30 21:14] LABS: Albumin, Blood 3.5 g/dL (3.4-5.0); Albumin/Globulin Ratio 0.9 (0.8-1.8); Bilirubin, Total 0.4 mg/dL (0.1-1.0); Bun/Creatinine Ratio 24.3 (12.0-20.0); Calcium, Blood 9.1 mg/dL (8.5-10.1); Creatinine, Blood 0.7 mg/dL (0.40-1.00); Potassium, Blood 3.2 mmol/L (3.5-5.5); Total Protein, Blood 7.5 g/dL (6.4-8.2)
[2023-05-30 22:04] LABS: BASOPHILS ABSOLUTE AUTO 0.03 K/mm3 (0.00-0.23); BASOPHILS PERCENT AUTO 0 % (0-2); EOSINOPHILS ABSOLUTE AUTO 0.01 K/mm3 (0.00-0.68); EOSINOPHILS PERCENT AUTO 0 % (0-6); Hemoglobin 15.7 g/dL (11.5-16.0); IMMATURE GRAN ABSOLUTE AUTO 0.03 K/mm3 (0.00-0.10); IMMATURE GRAN PERCENT AUTO 0 % (0-1); LYMPHOCYTES ABSOLUTE AUTO 1.08 K/mm3 (0.84-5.20); LYMPHOCYTES PERCENT AUTO 11 % (21-46); MONOCYTES ABSOLUTE AUTO 0.85 K/mm3 (0.16-1.47); MONOCYTES PERCENT AUTO 9 % (4-13); Mean Corpuscular HGB 31.3 pg (26.0-34.0); Mean Corpuscular HGB Conc 32.7 g/dL (31.5-36.5); Mean Corpuscular Volume 96 fL (80-100); Mean Platelet Volume 10.7 fL (9.1-12.4); NEUTROPHILS ABSOLUTE AUTO 7.53 K/mm3 (1.96-9.15); NEUTROPHILS PERCENT AUTO 79 % (41-73); Platelet Count 224 K/mm3 (150-400); RDW Coefficient Variation 14.1 % (11.7-14.2); RDW Standard Deviation 49.7 fL (35.1-46.3); Red Blood Cell Count 5.02 M/mm3 (3.80-5.20); White Blood Cell Count 9.53 K/mm3 (4.00-11.30)
[2023-05-31 07:40] VITALS: BP 191/82
[2023-05-31 08:39] LABS: BASOPHILS ABSOLUTE AUTO 0.03 K/mm3 (0.00-0.23); BASOPHILS PERCENT AUTO 0 % (0-2); EOSINOPHILS PERCENT AUTO 0 % (0-6); Hematocrit 46.5 % (33.0-51.0); Hemoglobin 15.2 g/dL (11.5-16.0); IMMATURE GRAN ABSOLUTE AUTO 0.03 K/mm3 (0.00-0.10); IMMATURE GRAN PERCENT AUTO 0 % (0-1); LYMPHOCYTES ABSOLUTE AUTO 1.01 K/mm3 (0.84-5.20); LYMPHOCYTES PERCENT AUTO 12 % (21-46); MONOCYTES ABSOLUTE AUTO 0.77 K/mm3 (0.16-1.47); MONOCYTES PERCENT AUTO 9 % (4-13); Mean Corpuscular HGB 30.7 pg (26.0-34.0); Mean Corpuscular HGB Conc 32.7 g/dL (31.5-36.5); Mean Corpuscular Volume 94 fL (80-100); Mean Platelet Volume 10.5 fL (9.1-12.4); NEUTROPHILS ABSOLUTE AUTO 6.73 K/mm3 (1.96-9.15); NEUTROPHILS PERCENT AUTO 78 % (41-73); Platelet Count 214 K/mm3 (150-400); RDW Standard Deviation 47.8 fL (35.1-46.3); Red Blood Cell Count 4.95 M/mm3 (3.80-5.20); White Blood Cell Count 8.57 K/mm3 (4.00-11.30)
[2023-05-31 09:09] LABS: Albumin, Blood 3.4 g/dL (3.4-5.0); Albumin/Globulin Ratio 0.8 (0.8-1.8); Bilirubin, Total 0.4 mg/dL (0.1-1.0); Bun/Creatinine Ratio 28.2 (12.0-20.0); Calcium, Blood 9.1 mg/dL (8.5-10.1); Creatinine, Blood 0.57 mg/dL (0.40-1.00); Potassium, Blood 2.9 mmol/L (3.5-5.5); Total Protein, Blood 7.4 g/dL (6.4-8.2)
[2023-05-31 15:20] VITALS: BP 171/79
[2023-05-31 17:00] VITALS: BP 184/74
--- NOTE | 2023-05-31 19:26 | NUR ---
SUMMARY- PT A/O X3, MILDLY FORGETFUL/CONFUSION- NEEDS REMINDERS TO TIME OF DAY. PT STARTED TAKING ICE CHIPS AND HAD A FEW BITES OF JELLO THIS PM. PT COVERS EYES WITH WET CLOTH AND ASKS FOR IT TO BE COOLED FREQ, STATES SHE CAN HARDLY SEE SINCE VIRAL ILLNESS STARTED A FEW DAYS AGO. STATES SHE HAS A HEADACHE. MEDICATED ONCE TODAY WITH TYLENOL. PT STATES SHE HAS EPIGASTRIC PAIN THAT IS SIMAIAR TO PAIN IN THE PAST THAT COMES IF SHE DOESNT TAKE HER TAGAMENT. HAD PROTONIX THIS AM. GIVEN MAALOX X1 WHICH PT STATES OFFERED MOD RELEIF. PT'S BP ELEVATED, CHECKED MANUAL AT 1700 184/74, HR 66. DR LYNN AWARE OF HIGH BP AND THAT PT IS VIRTUALLY NPO AND MAY NEED IVF. SHE STATES SHE WILL F/U WITH THIS. KCL REPLACED IV BUT IV INFILTRATED HALF WAY THROUGH AND ALLL OF IT MAY NOT HAVE INFUSED INTO VEIN. WILL F/U WITH BASIC LAB 1999. REPOETED ALL TO JONO.
--- NOTE | 2023-05-31 19:35 | NUR ---
DR YOUNG AT BEDSIDE TO EVAL PT APPROX 1500- VISUALIZED ABD WOUND- STATES HE HAS NO PLAN FOR SURGERY, PT NEEDS TO FOLLOW UP WITH [facility]. STATES OK FOR PT TO BEGIN ON CLEAR DIET TOLERATED ACCORDING TO HOSPITALIST. DRESSING CHANGED WITH FLUFF, ABD, MEPILEX. WOUND DRAINING LG AMOUNT FOUL FMELLING PURULANT SALMON COLOR DRAINAGE.
[2023-05-31 20:02] VITALS: BP 181/73
[2023-05-31 21:02] LABS: Bun/Creatinine Ratio 27.6 (12.0-20.0); Calcium, Blood 9.3 mg/dL (8.5-10.1); Creatinine, Blood 0.65 mg/dL (0.40-1.00); Potassium, Blood 3.3 mmol/L (3.5-5.5)
[2023-06-01 02:07] VITALS: BP 187/88
--- NOTE | 2023-06-01 03:28 | NUR ---
SHIFT SUMMARY A&O X 3-4. HAS PERIODS OF MILD CONFUSION, DOES REORIENT WELL. POTASSIUM REPLACED PER MD ORDER FOR A K OF 3.3. PT REQUESTED MAALOX FOR INDIGESTION & BENADRYL FOR SLEEP. PT STATES SHE TAKES BENADRYL NIGHTLY FOR SLEEP. ORDERS RECEIVED FOR BOTH. ENCOURAGED PT TO TRY AND DO MUCH FOR HERSELF POSSIBLE. SHE TENDS TO REQUEST STAFF TO FEED HER ICE CHIPS AND BITES OF JELLO. PT CONSTANTLY WEARS A COOL WET WASH CLOTH ON HER FOREHEAD AND EYES. ABD CRISTINA REMAINS C/D/I. COLOSTOMY INTACT, SITE WNL'S. PUREWICK IN PLACE. IS PLEASANT & COOPERATIVE WITH ALL CARE. BED IN LOW POSITION, CALL LIGHT WITHIN REACH.
[2023-06-01 06:35] LABS: BASOPHILS ABSOLUTE AUTO 0.02 K/mm3 (0.00-0.23); BASOPHILS PERCENT AUTO 0 % (0-2); EOSINOPHILS PERCENT AUTO 0 % (0-6); Hematocrit 48.4 % (33.0-51.0); Hemoglobin 15.7 g/dL (11.5-16.0); IMMATURE GRAN ABSOLUTE AUTO 0.03 K/mm3 (0.00-0.10); IMMATURE GRAN PERCENT AUTO 0 % (0-1); LYMPHOCYTES ABSOLUTE AUTO 1.23 K/mm3 (0.84-5.20); LYMPHOCYTES PERCENT AUTO 12 % (21-46); MONOCYTES ABSOLUTE AUTO 0.93 K/mm3 (0.16-1.47); MONOCYTES PERCENT AUTO 9 % (4-13); Mean Corpuscular HGB 30.5 pg (26.0-34.0); Mean Corpuscular HGB Conc 32.4 g/dL (31.5-36.5); Mean Corpuscular Volume 94 fL (80-100); Mean Platelet Volume 10.5 fL (9.1-12.4); NEUTROPHILS ABSOLUTE AUTO 7.93 K/mm3 (1.96-9.15); NEUTROPHILS PERCENT AUTO 78 % (41-73); Platelet Count 209 K/mm3 (150-400); RDW Coefficient Variation 14.1 % (11.7-14.2); RDW Standard Deviation 49.1 fL (35.1-46.3); Red Blood Cell Count 5.14 M/mm3 (3.80-5.20); White Blood Cell Count 10.14 K/mm3 (4.00-11.30)
[2023-06-01 06:58] LABS: Albumin, Blood 3.1 g/dL (3.4-5.0); Albumin/Globulin Ratio 0.8 (0.8-1.8); Bilirubin, Total 0.4 mg/dL (0.1-1.0); Bun/Creatinine Ratio 28.3 (12.0-20.0); Creatinine, Blood 0.67 mg/dL (0.40-1.00); Globulin, Blood 3.9 g/dL (2.2-4.0); Potassium, Blood 3.4 mmol/L (3.5-5.5)
[2023-06-01 07:54] VITALS: BP 174/88
--- NOTE | 2023-06-01 20:44 | NUR ---
SUMMARY- PT A/O X3, FORGETS TIME OF DAY AND DOES NOT KNOW DATE. PT STATES HER VISION IS SEVERELY AFFECTED AND IS UNABLE TO FEED HERSELF WITHOUT SPILLING EVERYTHING. THE ONLY ORAL INTAKE IS FROM STAFF FEEDING HER BITES OF JELLO OR ICE. C/O HEADACHE, MEDICATED WITH TYLENOL THIS AM. PT REQ A COOL CLOTH PLACED OVER HER EYES AT ALL TIMES AND THAT THE BLINDS BE DRAWN BECAUSE SHE IS SENSITIVE TO LIGHT. PT USING PUREWIC, IN INCONT URINE. HAVE NOT ATTEMPTED TO GET PT OOB, STATES SHE FEELS TOO WEAK. SCD'S IN USE. IV KCL REPLACEMENT TODAY. CALLED DR ANDREA 1899 AND RECEIVED ORDER FOR IVF OVERNIGHT RELATED TO POOR ORAL INTAKE
[2023-06-01 21:08] VITALS: BP 172/83
[2023-06-02 02:02] VITALS: BP 172/85
--- NOTE | 2023-06-02 04:11 | NUR ---
SHIFT SUMMARY PATIENT MEDICATED X1 FOR NAUSEA, X1 WITH TYLENOL FOR PAIN, AND X1 WITH MAALOX FOR INDIGESTION. COLOSTOMY DRAINING BROWN LIQUID STOOL. DRESSING OVER FISTULA SITE D/D/I. PATIENT ANXIOUS AND REQUIRES FREQUENT REASSURANCE AND ENCOURAGEMENT TO BE INDEPENDENT. PATIENT STATES UNABLE TO GET OUT OF BED DUE TO WEAKNESS. ICE CHIPS AND FLUID ENCOURAGED.
[2023-06-02 07:26] VITALS: BP 166/76
[2023-06-02 07:28] LABS: Bun/Creatinine Ratio 35.4 (12.0-20.0); Creatinine, Blood 0.57 mg/dL (0.40-1.00); Potassium, Blood 3.4 mmol/L (3.5-5.5)
[2023-06-02 14:20] LABS: Source, Urine Clean Catch
[2023-06-02 14:24] LABS: Appearance, Urine Clear (Clear); Bilirubin, Urine Neg (Neg); Blood, Urine 2+ (Neg); Color, Urine Yellow (P-Yellow); Glucose Qualitative, Urine Neg (Neg); Ketones, Urine 4+ (Neg); Leukocyte Esterase, Urine Neg (Neg); Nitrite, Urine Neg (Neg); Protein, Urine 2+ (Neg); Specific Gravity, Urine 1.015 (1.003-1.022); Urobilinogen, Urine NORM (Normal)
[2023-06-02 14:37] LABS: Bacteria Few /hpf; Squamous Epithelial Cells Few /hpf (Few)
--- NOTE | 2023-06-02 15:24 | NUR ---
Patient is lying in bed and is immediately anxious that a rocket engine tester came in the room and keeps asking if she is dying. I spend the first several minutes calming her down and before she is able to focus on her reason for coming to the hospital, on the positive things about her life and the wonderful chuch ([employer]) that she attends via satilite (even though she is [place] block or two away from the [place] Pastor Ang visits her and her son and is a solid source of strength and encouragement. I normalize her feeling and fears, and provide anxiety containment, a calming presence, gentle loan counselor and prayer. Patient attes during the middle of the prayer, "I stopped shaking and I feel peace." I will continue to remain available to patient and family.
[2023-06-02 15:33] VITALS: BP 142/63
--- NOTE | 2023-06-02 16:47 | NUR ---
SHIFT SUMMARY PATIENT ORIENTEDX2-3, SLEPT THROUGH MOST OF SHIFT. ANXIOUS AT TIMES. DENIED PAIN, CP, OR SOB. PT ASKED TO BE FED ICE CHIPS AND SPOONFULS OF JELLO DURING SHIFT, BUT IS ABLE TO LIFT ARMS AND EAT INDEPENDENTLY WHEN PROMPTED. NO ACUTE CHANGES THIS SHIFT. ASSESSED FOR SOURCES OF IGNITION DURING HOURLY ROUNDING. PATIENT REPORTS INCONTINENCE AT HOME AND USING A PUREWIC WHILE INPATIENT. COLOSTOMY BAG INTACT, OUTPUT SOFT BROWN STOOL. WOUND ON THE CENTER ABDOMEN IS COVERED WITH AN ABD AND TAPE. PURULENT DRAINAGE AND ODOR NOTED. SMALL SPOT ANTERIOR TO ANUS OOZING PURULENT DRAINAGE. CLEANSED AND LEFT UNCOVERED. PATIENT RECEIVING LR AT 110MLS/HR. CURRENTLY RESTING IN BED, DENIES ANY NEEDS AT THIS TIME. CALL LIGHT WITHIN REACH.
[2023-06-02 20:13] VITALS: BP 147/81
[2023-06-03 02:57] VITALS: BP 140/66
--- NOTE | 2023-06-03 04:03 | NUR ---
NO ACUTE CHANGES AT THIS TIME. PT WANTS TO HAVE CAREGIVERS DO EVERYTHING FOR HER AND IS BEING ENCOURAGED TO USE HER ARMS HAD HOLD BEVERAGES. PT HAS BEEN EDUCATED ON THE IMPORTANCE OF USING HER MUSCLES SO SHE DOES NOT LOSE HER STRENGTH. PT HAS BEEN REPOSTIONED EVERY COULPLE HOURS AND PERIWICK IS IN PLACE. CALL LIGHT IS WITHIN REACH WILL CONTINUE TO MONITOR.
--- NOTE | 2023-06-03 04:17 | NUR ---
IGNITION ASSESSMENT HAS BEEN DONE WITH HOURLY ROUNDING NO HAZARD FOUND.
[2023-06-03 05:55] LABS: BASOPHILS ABSOLUTE AUTO 0.05 K/mm3 (0.00-0.23); BASOPHILS PERCENT AUTO 1 % (0-2); EOSINOPHILS ABSOLUTE AUTO 0.04 K/mm3 (0.00-0.68); EOSINOPHILS PERCENT AUTO 1 % (0-6); Hematocrit 48.1 % (33.0-51.0); Hemoglobin 15.2 g/dL (11.5-16.0); IMMATURE GRAN ABSOLUTE AUTO 0.03 K/mm3 (0.00-0.10); IMMATURE GRAN PERCENT AUTO 0 % (0-1); LYMPHOCYTES PERCENT AUTO 23 % (21-46); MONOCYTES ABSOLUTE AUTO 0.63 K/mm3 (0.16-1.47); MONOCYTES PERCENT AUTO 9 % (4-13); Mean Corpuscular HGB 30.3 pg (26.0-34.0); Mean Corpuscular HGB Conc 31.6 g/dL (31.5-36.5); Mean Corpuscular Volume 96 fL (80-100); Mean Platelet Volume 11.3 fL (9.1-12.4); NEUTROPHILS ABSOLUTE AUTO 4.81 K/mm3 (1.96-9.15); NEUTROPHILS PERCENT AUTO 66 % (41-73); Platelet Count 188 K/mm3 (150-400); RDW Coefficient Variation 14.4 % (11.7-14.2); RDW Standard Deviation 50.2 fL (35.1-46.3); Red Blood Cell Count 5.02 M/mm3 (3.80-5.20); White Blood Cell Count 7.26 K/mm3 (4.00-11.30)
[2023-06-03 06:29] LABS: Bun/Creatinine Ratio 32.7 (12.0-20.0); Creatinine, Blood 0.67 mg/dL (0.40-1.00); Potassium, Blood 3.5 mmol/L (3.5-5.5)
[2023-06-03 08:00] VITALS: BP 147/69
--- NOTE | 2023-06-03 13:24 | NUR ---
Upon receiving a referral for spiritual care, I visited the patient. Patient tells me that she knew that I would visit her today. I tell her that I contacted her carton folder and that he would come to see her today. I also gathered the stories that he told her last time he visited her so I could tell them to her today, which I did. She voiced that she was encouraged by them. She says that she is sleepy but is hoping I would say a prayer for her. I provide therapeutic listening and prayer. She expresses gratitude for my visit and she returns to resting.
--- NOTE | 2023-06-03 14:46 | NUR ---
WOUND CARE SEAN IS MUTUAL PT OF AND KNOWN TO THIS RN. PT IS ABLE TO PROVIDE SELF CARE AT BASELINE. THIS RN ENCOURAGES SEAN TO PARTICIPATE IN SELF CARE AND FEEDING SO THAT SHE DOES NOT DECONDITION. THIS RN NOTED COUGHING AND SOME POCKETING WHILE EATING A SMALL AMOUNT OF JELLO. TELEPHONE ORDER RECIEVED FOR SWALLOW EVAL. FISTULA IS WELL ESTABLISHED AND IS DRAING PURULENT DRAINAGE. WOULD CALCIUM ALGINATE/ABD WITH DAILY CHANGES. PT REQUEST THIS RN RETURN TOMORROW FOR CHANGE
[2023-06-03 17:39] LABS: Bun/Creatinine Ratio 40.7 (12.0-20.0); Calcium, Blood 9.2 mg/dL (8.5-10.1); Creatinine, Blood 0.66 mg/dL (0.40-1.00); Potassium, Blood 3.6 mmol/L (3.5-5.5)
--- NOTE | 2023-06-03 18:27 | NUR ---
SHIFT SUMMARY PT MORE ALERT TODAY, ORIENTED X2-3. PT WAS ENCOURAGED TO MOVE HER ARMS AND EAT/DRINK INDEPENDENTLY DURING SHIFT, TO WHICH SHE REPORTED THAT SHE WAS UNABLE TO DO SO. PATIENT USES A PUREWIC AND IS INCONTINENT/CONTINENT. DRESSING ON ABD WOUND WAS CHANGED TODAY BY IRENE. ORDERS ARE IN FOR DRESSING TO BE CHANGED DAILY. DENTAL HYGENIST CLEANED PATIENT'S TEETH AND LEFT SUPPLIES IN ROOM FOR PATIENT. PATIENT CAN NO LONGER HAVE ICE CHIPS, ONLY NECTAR THICK LIQUIDS. PATIENT CURRENTLY LAYING ON A BEDPAN. SPIRITS ARE LOW. CALL LIGHT WITHIN REACH.
[2023-06-03 19:40] VITALS: BP 135/71
[2023-06-04] VITALS (21 sets, daily range): BP systolic 101–163; BP diastolic 47–95
--- NOTE | 2023-06-04 05:28 | NUR ---
SHIFT SUMMARY 73 YR F ADMITTED ON 06/01/23 FOR GASTRO ISSUES. FULL CODE. PT C/O HEADACHE AND WAS GIVEN TYLENOL PER EMAR W/ GOOD RESULTS. SHE STATED THAT HER SIGHT SEEMED TO BE GETTING AFTER C/O LOSS OF VISION. PT IS EITHER UNABLE OR UNWILLING TO DO ANYTHING FOR HERSELF, INCLUDING LIFTING HER ARMS TO REACH CALL LIGHT EVEN WHEN IT IS PLACED IN HER LAP. MEDS WERE TAKEN W/ THICKENED LIQUID W/ NO ISSUES. PT APPEARS TO BE DEPRESSED.
[2023-06-04 08:37] LABS: Bun/Creatinine Ratio 25.4 (12.0-20.0); Calcium, Blood 8.9 mg/dL (8.5-10.1); Creatinine, Blood 0.79 mg/dL (0.40-1.00); Potassium, Blood 3.7 mmol/L (3.5-5.5)
--- NOTE | 2023-06-04 15:59 | NUR ---
WOUND CARE DRESSING CHANGED PER ORDER. THIS RN IS CONCERNED WITH COPIOUS AMOUNT OF PURULENT DRAINAGE FROM FISTULA. HOSPITALIST NOTIFIED AND CULTURE OBTAINED
--- NOTE | 2023-06-04 17:56 | NUR ---
SHIFT SUMMARY VSS. PT WEAK, DOES NOT LIFT OR MOVE EXTERMITIES WITH PROMPTING. WILL RESPOND VISUALLY, OPEN MOUTH WITH CUES. IV INFILTERATED R UPPER ARM. REPLACED WITH PICC LINE. A@O X3. PT CONSTANTLY COLD, REQUESTS BLANKETS OFTEN. NO FEVER NOTED. EDEMA PITTING 2+ LOWER AND UPPER EXTERIMITIES. COLOSTOMY BAG INTACT AND DRAINING WELL. PURE WICK IN PLACE AND DRAINING WELL, DEBRA URINE. DRESSING CHANGE OF ABD WOUND CHANGED PER WOUND CLINIC. DRESSING C/D/I AT THIS TIME. REQUESTS NEEDS, WILL SMILE SYMETRICALLY. HEADACH/MIGRAINE NOTED X2 BEHIND EYES. MED PER EMAR. WILL CONTINUE TO MONITOR. BED ALARM ON. CALL LIGHT IN REACH.
--- NOTE | 2023-06-04 18:33 | NUR ---
GAVE REPORT TO GALDINO IN ICU, WILL TRAMSPORT TO ICU.
--- NOTE | 2023-06-04 18:52 | NUR ---
SPOKED WITH SON (AMANDEEP) ABOUT TRANSFER TO ICU. SON CONFIRMED DR DID CALL.
--- NOTE | 2023-06-04 21:30 | NUR ---
ASSUMPTION OF CARE/ASSESSMENT: ASSUMED CARE OF PT AT 1900. PT ARRIVED TO THE UNIT AROUND 1845, BEDSIDE REPORT RECIEVED FROM CHELY LAZCANO. PT TRANSFERRED FROM MEDICAL FLOOR DUE TO NEW-ONSET L. EYE VISION LOSS; PT HAD HEAD CT AND A NEW DX OF SUBARRACHNOID HEMMORRHAGE. PT A&O X 4, FOLLOWING COMMANDS; PT TOW BAR DRIVER STRENGTH WEAK BILATERALLY BUT L. HAND IS MORE WEAK COMPARED TO R. HAND. FOOT STRENGTH IS WEAK BILATERALLY BUT EQUAL. PT STILL REPORTING NO VISION IN L. EYE AND SOME LIGHT SENSITIVITY; EYE MASK IN PLACE. PT ON RA WITH SPO3 94<, LUNG SOUNDS CLEAR AND DENIES SOB. PT SR ON MONITOR WITH HR 90'S AND SBP 150'S; PT DENIES CHEST PAIN/PRESSURE AT THIS TIME. HYPERACTIVE BOWEL SOUNDS IN ALL QUADRANTS, PT TOLERATING PO INTAKE AT THIS TIME BUT REQUIRES COMPLETE ASSISTANCE WITH FEEDING D/T VERY WEAK GROSS MOTOR MOVEMENT IN ALL EXTREMITIES. PT HAS OSTOMY IN RLQ WITH A RED, MOIST STOMA NOTED. OSTOMY BAG DRAINED WITH 300 ML OUTPUT. PT DENIES ANY PAIN/DISCOMFORT WITH OSTOMY SITE. PT HAS CHRONIC WOUND TO ABD MIDLINE THAT IS DRESSED; DRESSING REMAINS C/D/I AND PT DENIES PAIN. PT GROSS MOTOR SKILLS VERY DECONDITIONED AND IS A TOTAL CARE PT. SKIN INTACT OVERALL, FRAGILE AND WARM; PG TO MIKE THAT FLUSHES WELL BUT DRAWS BLOOD SLOWLY. PT'S SON, AMANDEEP, AT BEDSIDE AFTER PT SETTLED IN UNIT AND UPDATED ON PT'S STATUS; ALL QUESTIONS ANSWERED AT THIS TIME. BED LOWERED, CALL LIGHT IN REACH.
[2023-06-05] VITALS (70 sets, daily range): BP systolic 113–171; BP diastolic 62–101
[2023-06-05 05:40] LABS: Bun/Creatinine Ratio 23.1 (12.0-20.0); Calcium, Blood 8.1 mg/dL (8.5-10.1); Potassium, Blood 4.4 mmol/L (3.5-5.5)
--- NOTE | 2023-06-05 06:08 | NUR ---
SHIFT SUMMARY: NO ACUTE CHANGES THROUGHOUT THE NIGHT; VSS THROUGHOUT THE SHIFT. PT HAD TWO REPEAT HEAD CT SCANS AND BOTH SHOWED NO GROWTH IN BLEED FROM FIRST SCAN. PT REMAINS A&O X 4, FOLLOWING DIRECTIONS AND MAKING NEEDS KNOWN. PT DOES STATE HEADACHE THIS SHIFT RATED 6/10; PT MEDICATED PER EMAR AND KEPT AT HOB 30 DEGREES. JEWELRY RACKER STRENGTH WEAK BILATERALLY WITH L HAND MORE WEAK THAN R HAND. PT FEET STRENGHT WEAK BUT EQUAL BILATERALLY. PT NOTED TO BE VERY WEAK OVERALL AND HAS LIMITED ROM/STRENGHT IN ALL EXTREMITIES. PUREWICK REPLACED THIS MORNING AND OSTOMY BAG DRAINED WITH 50 ML OUTPUT. MIDLINE WOUND DRESSING CHANGED THIS MORNING. BED LOWERED, CALL LIGHT IN REACH.
[2023-06-05 07:40] LABS: BASOPHILS ABSOLUTE AUTO 0.04 K/mm3 (0.00-0.23); BASOPHILS PERCENT AUTO 1 % (0-2); EOSINOPHILS ABSOLUTE AUTO 0.23 K/mm3 (0.00-0.68); EOSINOPHILS PERCENT AUTO 3 % (0-6); Hematocrit 47.8 % (33.0-51.0); Hemoglobin 15.6 g/dL (11.5-16.0); IMMATURE GRAN ABSOLUTE AUTO 0.03 K/mm3 (0.00-0.10); IMMATURE GRAN PERCENT AUTO 0 % (0-1); LYMPHOCYTES ABSOLUTE AUTO 1.87 K/mm3 (0.84-5.20); LYMPHOCYTES PERCENT AUTO 22 % (21-46); MONOCYTES ABSOLUTE AUTO 0.73 K/mm3 (0.16-1.47); MONOCYTES PERCENT AUTO 9 % (4-13); Mean Corpuscular HGB 30.8 pg (26.0-34.0); Mean Corpuscular HGB Conc 32.6 g/dL (31.5-36.5); Mean Corpuscular Volume 94 fL (80-100); Mean Platelet Volume 11.2 fL (9.1-12.4); NEUTROPHILS ABSOLUTE AUTO 5.67 K/mm3 (1.96-9.15); NEUTROPHILS PERCENT AUTO 66 % (41-73); Platelet Count 155 K/mm3 (150-400); RDW Coefficient Variation 14.3 % (11.7-14.2); Red Blood Cell Count 5.07 M/mm3 (3.80-5.20); White Blood Cell Count 8.57 K/mm3 (4.00-11.30)
--- NOTE | 2023-06-05 08:09 | NUR ---
CARE OF PT ASSUMED AT 0700. DR ANDREA AT BEDSIDE THIS AM TO ASSESS PT. PT C/O HEADACHE 07/29, PT STATES THIS HEADACHE IS WORSE THAN LAST NIGHT. PT ALSO COMPLAINTS OF 10/ CHRONIC BACK PAIN. PT C/O ABD PAIN WITH PALP /10. MIDLINE DRSG IS INTACT. HOB IS AT 30 DEGREES. PT HAS OVERALL WEAKNESS TO ALL EXTREMITIES, LEFT WORSE THAN RIGHT. PT ABLE TO LIGHTLY FOREST FIRE WARDEN W RIGHT HAND, PT MININIMALLY ABLE TO WIGGLE LEFT FINGERS. PT CAN WEAKLY SHRUG LEFT SHOULDER, PT CAN WEAKLY LIFT RIGHT ARM. PT HAS SYMETRICAL SMILE W POSSIBLE DEVIATION OF TONGUE TO THE LEFT. EYES DEVIATE TOWARD RIGHT. PT ABLE TO FOLLOW FINGER WEAKLY TO LEFT SIDE. SOME VISION LOSS NOTED TO LEFT FIELD BUT AGAIN PT'S EYES SHIFT RIGHT. PT REQUESTING ICE CREAM, WILL KEEP NPO FOR NOW. PICC LINE TO BE PLACED D/T POOR ACCESS.
--- NOTE | 2023-06-05 08:41 | NUR ---
DR ANDREA GIVEN FULL UPDATE. PO MEDS WILL BE CHANGED TO IV IF POSSIBLE. MRI ORDERED. NEURO CHECKS WILL BE INCREASED. WILL KEEP PT NPO. MD CONSIDERING PAIN MED OPTIONS.
--- NOTE | 2023-06-05 13:53 | NUR ---
DR CHIRINOS IN TO SEE PT AT 1230. MRI COMPLETE, IMAGING TO PUSH IMAGES TO [facility] PER DR CHIRINOS REQUEST. NO NEW NEURO DEFICITS NOTED, THERE HAS BEEN SLIGHT IMPROVEMENT. THERE IS NOW A LESS SEVERE GAZZE TO THE RIGHT, AND PT CAN MORE EASILY MOVE EYES TO THE LEFT ON COMMAND; NO OTHER CHANGES. PT CONTINUES TO WAKE TO VOICE, OX3. PT STATES GOOD PAIN RELIEF FROM FENTANYL, STATES [place] IS 5/10 WHICH IS AN ACCEPTABLE PAIN LEVEL FOR HER.
[2023-06-05 16:39] LABS: Bun/Creatinine Ratio 21.6 (12.0-20.0); Calcium, Blood 8.8 mg/dL (8.5-10.1); Creatinine, Blood 1.02 mg/dL (0.40-1.00)
--- NOTE | 2023-06-05 16:54 | NUR ---
CALL RECEIVED FROM DR CHIRINOS; UPDATE GIVEN TO DR CHIRINOS. LABETALOL GTT TO KEEP SBP BETWEEN 135-145 ORDERED. LABETALOL STARTED AT 1MG/MIN. SBP 143, HR 60-70'S. PT C/O HEADACHE 06/29 W/O IMPROVEMENT AFTER 25MCG FENT; DR CHIRINOS NOTIFIED, FENTANYL INCREASED TO 25-50MCG Q 4HRS. D5NS DECREASED TO 100CC/HR PER DR CHIRINOS. CHEM 8 SENT, NA++ 145. OKAY FOR PT TO EAT/DRINK IF SHE IS ABLE TO TOLERATE SITTING UPRIGHT PER DR CHIRINOS. WILL BE MONITORING CLOSELY FOR SEIZURE ACTIVITY; NEURO CHECKS Q4HRS. PT'S SON GIVEN UPDATE VIA PHONE WITH PT'S PERMISSION. PICC LINE PLACED W/O DIFFICULTY THIS AM.
--- NOTE | 2023-06-05 18:21 | NUR ---
PT DOES NOT TOLERATE HOB ABOVE 45 DEGREES 2ND HEADACHE PAIN INCREASING. PT STATES PAIN IS MORE TOLERABLE AT THIS TIME /. LABETALOL AT 0.5MG/MIN. NO CHANGE IN NEURO ASSESSMENT.
--- NOTE | 2023-06-05 20:00 | NUR ---
ASSESSMENT/ASSUMED CARE PT LYING IN BED QUIETLY WITH SLEEP MASK ON. AWAKENS TO VERBAL STIMULI EASILY. SPEECH CLEAR. FOLLOWS INSTRUCTIONS AND ANSWERS QUESTIONS APPROP. REPORTS HEADACHE WITH EYES SENSITIVE TO LIGHT. PT ABLE TO MOVE FINGERS ON BOTH HANDS AND JEEPER OPERATOR, BUT LEFT WEAKER THAN RIGHT. UNABLE TO LIFT ARMS OFF PILLOWS. PT ABLE TO MOVE BOTH FEET, BUT UNABLE TO LIFT LEGS OFF BED. PUPILS EQUAL AND BRISK. ABLE TO MOVE EYES AND TRACK WITH FOLLOWING FINGER, BUT VERY SLOW. LUNGS CLEAR BUT DECREASED ON ROOMAIR. RESP EVEN AND NONLABORED. HEART RATE REGULAR. BP STABLE. LABETALOL ON STANDBY AT THIS TIME. BT+ ABD WITH MIDLINE ABD DRSG INTACT. ILEOSTOMY TO RIGHT UPPER QUAD. APPLIANCE INTACT. SMALL AMT BROWN LIQUID NOTED. IV POWER GLIDE TO LEFT UPPER ARM, DRSG INTACT. SITE CLEAR. ABLE TO FLUSH WITHOUT DIFFICULTY. PICC LINE TO RIGHT UPPER ARM WITH D5 NS AT 100 ML/HR AND NS AT TKO. SITE CLEAR AND DRSG INTACT. MARYLOU INPLACE. ATTENDS CD&I. PT REPOSITIONED.
--- NOTE | 2023-06-05 21:15 | NUR ---
PAIN PT C/O BACK PAIN 06/29. MED WITH FENTANYL 50 MCQ AND REPOSITIONED PT. PT REPORTS PAIN GONE AFTER MED. PT ABLE TO SIT UP AND DRINK ENSURE AND EAT ICE CREAM WITHOUT DIFFICULTY.
[2023-06-06] VITALS (66 sets, daily range): BP systolic 109–169; BP diastolic 51–90
[2023-06-06 05:12] LABS: Bun/Creatinine Ratio 21.3 (12.0-20.0); Calcium, Blood 8.4 mg/dL (8.5-10.1); Creatinine, Blood 1.08 mg/dL (0.40-1.00); Potassium, Blood 3.8 mmol/L (3.5-5.5)
--- NOTE | 2023-06-06 05:55 | NUR ---
SHIFT SUMMARY PT RESTING QUIETLY AT THIS TIME. MED WITH FENTANYL 50 MCQ TWICE DURING THE NIGHT FOR BACK AND HEADACHE, WITH GOOD RESULTS. PT MED WITH HYDRALAZINE FOR BP 169/83 MAP 104 HEART RATE 68. WILL CONT TO MONITOR BP. LABETALOL GTT OFF ALL NIGHT. NO NEURO CHANGES DURING THE NIGHT. PT SITTING UP MORE DURING THE NIGHT AND ABLE TO TAKE PO WITHOUT DIFFICULTY. PT GIVEN SEVERAL ICE CREAMS AND ONE ENSURE. ASSITED WITH PO INTAKE. REPORT TO ON COMING NURSE
--- NOTE | 2023-06-06 06:19 | NUR ---
CALL TO MD CALL TO DR NOLEN REGARDING BP 150/74 MAP 94 AFTER HYDRALAZINE 10 MG GIVEN. ORDER RECEIVED FOR LABETALOL 10 MG IV ONE TIME.
--- NOTE | 2023-06-06 10:28 | NUR ---
"Spiritual Care | Pt./family request Pts. son requests this sonographer to come visit Pt. Pt. is awake and welcomes my visit. Pt. displays evidence of being engaged and alert. Pt. is receiving care from other disciplines so this sonographer excused himself. Pt. and son verbalized gratitude for the spiritual care visit. Will remain available to the Pt. and family."
--- NOTE | 2023-06-06 10:55 | NUR ---
AFTER SPEECH THERAPY EVAL, IN WHICH BUTLER DID VERY WELL, SHE HAS BEGUN C/O PAIN IN HER STOMACH, SHARP 06/29. REGLAN GIVEN, HAD MAALOX EARLIER AND ISN'T AVAILABLE AGAIN FOR A WHILE. TRIED TO GIVE HER SOME MILK, SHE DIDN'T LIKE IT. SHE IS SAYING THAT SHE NEEDS ROLAIDS OR MORE MAALOX. CONCERNED THAT SHE MAY MISUSE THE MAALOX AT HOME. WILL CONTINUE TO OBSERVE AND CALL DR IF NEEDED.
--- NOTE | 2023-06-06 11:19 | NUR ---
PT IS QUIETLY RESTING NOW.
--- NOTE | 2023-06-06 11:32 | NUR ---
BUTLER REFUSED TO WORK WITH OT HER STOMACH WAS HURTING 06/29. CALL TO , ORDERS RECEIVED. WENT TO SPEAK WITH BUTLER ABOUT THEM AND SHE WAS SOUNDLY SLEEPING AND DIDN'T RESPOND TO ME. WILL GIVE HER THE MEDICATION WHEN AVAILABLE.
[2023-06-06 13:04] LABS: Free Thyroxine 0.76 ng/dL (0.70-1.60)
[2023-06-06 13:07] LABS: Triiodothyronine, Free 0.7 pg/mL (2.18-3.98)
--- NOTE | 2023-06-06 13:14 | NUR ---
PT WAS SLEEPING AT NOON, LET HER SLEEP. ATTEMPTED TO WAKE HER AT 1300, STERNAL RUB DONE TO AROUSE. SHE WAS ASKING WHY SHE WAS SLEEPING SO HARD. SHE WOULDN'T LIFT HER EXTREMETIES LIKE SHE DID THIS MORNING. SHE IS ONLY WIGGLING HER ANKLES AND WRISTS, WIGGLING FINGERS AND TOES. SAYS SHE "CAN'T LIFT HER ARMS". ONLY COMPLAINT IS VISION, DOUBLE VISION ON EACH ASSESSMENT. TOUCH AND SENSATION INTACT. TOOK FIRST DOSE OF KEPPRA. REFUSING LUNCH AT THIS TIME. DID EAT SEVERAL ICE CREAMS AND SHERBETS THIS AM.
--- NOTE | 2023-06-06 13:36 | NUR ---
TRISTA IS ASKING FOR DRINKS OF WATER, SHE TOOK A FEW BITES OF HER PEACHES, DRANK HER APPLE JUICE. SHE LOOKS TO THE LEFT WHEN THE HYGIENEST MAKES NOISE, SHE HOLDS HER MOUTH OPEN THE HYGIENEST IS COMING NEAR HER. LEFT ARM AND LEG REMAIN WITH MORE EDEMA THAN THE RIGHT. CONTINUES TO ASK "WHY WAS I SLEEPING SO HARD?"
[2023-06-06 17:04] LABS: Bun/Creatinine Ratio 17.8 (12.0-20.0); Calcium, Blood 8.5 mg/dL (8.5-10.1); Creatinine, Blood 0.84 mg/dL (0.40-1.00); Potassium, Blood 3.6 mmol/L (3.5-5.5)
--- NOTE | 2023-06-06 17:14 | NUR ---
TRISTA WAS MOVED BY LIFT TO THE RECLINER AROUND 1600. SHE TOLERATED THE MOVE VERY WELL, SHE STATES THAT THERE IS NO CHANGE IN HER HEAD PAIN/PRESSURE WITH THE MOVE TO THE RECLINER. ARMS POSITIONED ON PILLOWS, WHEN RETURN ARMS HAVE MOVED. WHEN ASKED TO MOVE AND LIFT ARMS, PT "CAN'T MOVE THEM, SHE IS TOO WEAK". PT ENCOURAGED TO DO WRIST AND ANKLE TURNS. PT ABLE TO PUSH AND PULL ACCORDINGLY DURING ROM. PT ONLY WANTS ICE CREAM, REFUSES TO EAT MEALS THAT ARE BROUGHT IN. BLOOD PRESSURE UP ONCE SINCE THE LABETOLOL DRIP OFF, MEDICATED WITH HYDRALAZINE WITH GOOD RESULTS. PT BEING FED AND WATERED, PT NOT GRIPPING CUPS OR SILVERWARE. SON IN EARLIER TODAY. DRESSING CHANGE COMPLETED, WOUND SMALLER THAN A DIME, PURULENT DRAINAGE. OSTOMY WITH BROWN LIQUID, CREAMY MIXED RETURN.
--- NOTE | 2023-06-06 17:58 | NUR ---
FEEDING PT. SHE OPENS HER MOUTH AND WAITS FOR FOOD TO BE PUT IN. ONLY ATE A COUPLE OF SMALL BITES OF CARROTS, TWO BITES OF PASTA, SEVERAL BITES OF CUSTARD, SIPS OF JUICE AND LOTS OF WATER. MENU WAS CHOSEN WITH HER THIS AM. SHE WON'T MOVE HER ARMS OR LEGS, BARELY OPENS HER EYES. ENCOURAGED TO TRY TO DO MORE WITH HER LIMBS THEY WILL LOSE THEIR FUNCTION WITHOUT USAGE. LEFT SIDE SWOLLEN > RIGHT, STATES THIS IS NORMAL. OSTOMY SITE WITH SWELLING AROUND THE BAG, SOFT AND NON TENDER. DRESSING CHANGED ON MIDLINE WOUND, PT SLEPT THROUGH. BP IS REMAINING IN PARAMETERS, NO ADDITIONAL DOSAGE OF HYDRALAZINE NEEDED AT THIS TIME. WILL CONTINUE TO ENCOURAGE MOVEMENT BY THE PATIENT. PT CONTINUES TO COMPLAIN OF 10/10 HEAD PAIN.
--- NOTE | 2023-06-06 20:09 | NUR ---
ASSUMED CARE OF PT AT 1900 PT RESTING IN CHAIR BESIDE BED FOR BEDSIDE REPORT. PT TALKED WITHOUT OPENING EYES. REPORT OF 9/10 PAIN IN HEAL OF LEFT FOOT. THE AREA WAS FLOATED. NS AT 100 MLS/HR. NS TKO AT 10 MLS/HR SEE FULL ASSESSMENT FOR FURTHER INFORMATION.
--- NOTE | 2023-06-06 21:47 | NUR ---
PT TRANSFERED FROM CHAIR TO BED VIA LIFT. REPOSITIONED AND LIMBS ELEVATED. PT REQUESTED ICE WATER TO DRINK. THIS RN COACHED PT ON TRYING TO DO NORMAL DAILY MOVEMENTS TO IMPROVE CONDITION. PATIENT FULLY LIFTED HER LEFT ARM AND WIPED A DROP OF WATER OFF OF HER FACE. PT WAS CONGRATULATED ON THE EFFORTS MADE.
[2023-06-07] VITALS (40 sets, daily range): BP systolic 110–153; BP diastolic 54–84
[2023-06-07 03:43] LABS: Hematocrit 38.6 % (33.0-51.0); Hemoglobin 12.2 g/dL (11.5-16.0); Mean Corpuscular HGB 30.5 pg (26.0-34.0); Mean Corpuscular HGB Conc 31.6 g/dL (31.5-36.5); Mean Corpuscular Volume 97 fL (80-100); Mean Platelet Volume 11.9 fL (9.1-12.4); Platelet Count 134 K/mm3 (150-400); RDW Coefficient Variation 14.6 % (11.7-14.2); RDW Standard Deviation 52.8 fL (35.1-46.3); White Blood Cell Count 6.48 K/mm3 (4.00-11.30)
[2023-06-07 04:03] LABS: Bun/Creatinine Ratio 16.6 (12.0-20.0); Calcium, Blood 7.9 mg/dL (8.5-10.1); Creatinine, Blood 0.78 mg/dL (0.40-1.00); Potassium, Blood 3.7 mmol/L (3.5-5.5)
--- NOTE | 2023-06-07 04:44 | NUR ---
SHIFT SUMMARY PT IS A ICU TRANSFER THIS AM. PT ARRIVED TO UNIT WITHOUT ISSUE. PT IS AOX4 AND COOPERATIVE. PT NEEDS ENOURAGEMENT TO MOVE EXTREMITIES. PT IS CURRENTLY INCONTIENT URINE AND HAS A PUREWICK TO SUCTION AND ATTENDS. PT HAS A ILEOSTOMY LOWER R QUAD. LOOSE BROWN STOOL WAS REMOVED. PT IS ON RA AND DENIES SOB OR CX PAIN. PT C/O HEADACHE IS ONGOING. PT TX FOR NEWTON WITH SOME RELIEF AND ABLE TO SLEEP. PT REPORTS NEEDING MALOX FOR GI UPSET FREQUENTLY. PT HAS A WOUND SITE FROM OLD OSTOMY. WOUND IS MIDLINE WITH SOME SHADOWING NOTED. THERE ARE CURRENT WOUND CARE ORDERS. PT CURRENTLY SLEEPING IN NO DISTRESS. CALL LIGHT IN REACH.
--- NOTE | 2023-06-07 12:51 | NUR ---
CARE NOTE PT IS ALERT AND ORIENTED TO SELF, PLACE, YEAR AND SITUATION. SHE FOLLOWS COMMANDS BUT NEEDS MUCH ENCOURAGEMENT TO PERFORM ACTIVITIES SUCH MOVING ARMS WHICH SHE IS CAPABLE OF DOING. SHE HAS REPORTED A 10/10 HEADEACH, LIGHTS DIMMED TO ASSIST IN ALLEVIATING HEADACHE, REST ALSO PROVIDED. WILL CONTINUE TO MONITOR PAIN. LAST SBP WAS 121, WILL CONTINUE TO MONITOR.
--- NOTE | 2023-06-07 14:40 | NUR ---
CARE NOTE PT REPORTED 10/10 HEADACHE, FETYNAL GIVEN PER EMAR ORDERS AND NOW PT APPEARS TO BE SLEEPING COMFORTABLY. WOUND LOCATED MID ABD CLEANSED AND RE-DRESSED BY THIS RN. BP NOTED TO BE >120 THEREFORE HYDRALAZINE GIVEN PER DR. CHIRINOS ORDERS, WILL CONTINUE TO MONITOR.
--- NOTE | 2023-06-07 18:07 | NUR ---
SHIFT SUMMARY PT IS ALERT AND ORIENTED TO SELF, PLACE, YEAR, SITUATION AND FAMILY BUT DID NOT KNOWN THE DATE. SHE IS WEAK IN UPPER AND LOWER EXTREMETIES W/ R UPPER EXTREMETY SLIGHTLY WEAKER THAN LEFT. SHE IS ABLE TO FOLLOW COMMANDS. PT COMPLAINED OF HEADACHE T/O SHIFT WHICH WAS MUCH IMPROVED W/ IBUPROFEN. SHE IS ABLE TO MOVE BUE TO SHOULDER MICHAELA BUT NEEDS MUCH ENCOURAGEMENT TO PERFORM SIMPLE ACTIVITIES SUCH LIFTING ARM UP TO PLACE BP CUFF OR WHEN PROVIDING A BED BATH. SBP GOAL IS LESS THAN 120, PRN HYDRALAZINE HAS BEEN GIVEN, MOST RECENT SBP WAS IN 140'S, PLEASE SEE EMAR FOR BP MANAGEMENT. DR. CHIRINOS ALSO CALLED BY THIS RN AND PRN LABETALOL IS ALSO NOW IN EMAR. HR STABLE, SPO2 >95% VIA ROOM AIR. PT DENIES FEELING SOB, WELL FEELINGS OF CHEST PAIN/PRESSURE. NO COUGH NOTED. SHE CAN TAKE PILLS WHOLE IN PUDDING AND TOLERATES STRAWS WELL AND THIN LIQUIDS WELL. SHE HAS HAD A POOR APPETITE W/ THE EXCEPTION OF REQUESTS FOR ICE CREAM. PT ALSO REPORTS POOR VISION AND HAS EYES CLOSED MOST OF THE SHIFT. PT WAS ENCOURAGED TO GET UP TO CHAIR W/ LIFT ASSISTANCE FOR BREAKFAST AND DINNER AND DECLINED BUT WAS WILLING TO SIT IN RECLINER CHAIR FOR DINNER. PW DEVICE CONNECTED TO WALL SUCTION PER ORDERS. DRESSING OVER UNHEALED OSTOMY WOUND CHANGED TODAY BY THIS RN. PT'S WAS AT BEDSIDE DURING SHIFT. PT IS NOW IN RECLINER CHAIR AND APPEARS TO BE RESTING COMFORTABLY, CALL LIGHT IS W/IN REACH.
--- NOTE | 2023-06-07 21:24 | NUR ---
ASSUMED PT CARE FROM SHARI RN ON DAYSHI. SLEEPY BUT ABOUT TO AROUSE WITH NOISE. FOLLOWS COMMANDS RELUCTANTLY. NEEDS FREQUENT ENCOURAGMENT TO ATTEMPT MOVING ARMS, AND ATTEMPTING TO CARE FOR SELF. PT EDUCATED ON IMPROTANCE OF INTERACTING WITH CARE FOR IMPROVE RECOVERY. MEDICATED FOR HEADACHE, SEE EMAR. MEDICATED FOR BP > 120, SEE EMAR. HR SR IN 60'S-70'S. O2 SATS > 92% ON RA. ABLE TO SWALLOW PILLS WHOLE WITHOUT DIFFICULTY. AFEBRILE. WILL CONTINUE TO MONITOR BP. CALL LIGHT IN REACH.
[2023-06-08] VITALS (60 sets, daily range): BP systolic 100–150; BP diastolic 52–83
[2023-06-08 06:44] LABS: BASOPHILS ABSOLUTE AUTO 0.03 K/mm3 (0.00-0.23); BASOPHILS PERCENT AUTO 0 % (0-2); EOSINOPHILS PERCENT AUTO 4 % (0-6); Hematocrit 40.1 % (33.0-51.0); Hemoglobin 12.8 g/dL (11.5-16.0); IMMATURE GRAN ABSOLUTE AUTO 0.05 K/mm3 (0.00-0.10); IMMATURE GRAN PERCENT AUTO 1 % (0-1); LYMPHOCYTES ABSOLUTE AUTO 1.59 K/mm3 (0.84-5.20); LYMPHOCYTES PERCENT AUTO 22 % (21-46); MONOCYTES PERCENT AUTO 8 % (4-13); Mean Corpuscular HGB 30.9 pg (26.0-34.0); Mean Corpuscular HGB Conc 31.9 g/dL (31.5-36.5); Mean Corpuscular Volume 97 fL (80-100); Mean Platelet Volume 11.8 fL (9.1-12.4); NEUTROPHILS ABSOLUTE AUTO 4.82 K/mm3 (1.96-9.15); NEUTROPHILS PERCENT AUTO 65 % (41-73); Platelet Count 137 K/mm3 (150-400); RDW Coefficient Variation 14.8 % (11.7-14.2); RDW Standard Deviation 52.4 fL (35.1-46.3); Red Blood Cell Count 4.14 M/mm3 (3.80-5.20); White Blood Cell Count 7.39 K/mm3 (4.00-11.30)
[2023-06-08 07:07] LABS: Bun/Creatinine Ratio 13.9 (12.0-20.0); Calcium, Blood 8.4 mg/dL (8.5-10.1); Creatinine, Blood 0.79 mg/dL (0.40-1.00); Potassium, Blood 3.9 mmol/L (3.5-5.5)
--- NOTE | 2023-06-08 07:29 | NUR ---
SHIFT SUMMARY: NO ACUTE CHANGES NOTED DURING THIS SHIFT. MEDICATED WITH PRN BP MEDS TO KEEP SBP < 120. MEDICATED FOR NEWTON, SEE EMAR. NEURO CHECKS REMAIN UNCHANGED THROGHOUT SHIFT. ENCOURAGED TO PERFROM MANY ADLS POSSIBLE HER SELF. SPOKE WITH SON AMANDEEP ON PHONE TO UPDATE ON HOW PT'S DAY WENT YESTERDAY AT PT REQUEST. PT SITTING UP IN [place] LAST EVENING THEN RETURNED TO BED VIA LIFT. CALL LIGHT IN REACH. BED IN LOW POSITION.
--- NOTE | 2023-06-08 10:25 | NUR ---
SEAN IS ABLE TO LIFT HER ARMS AND TOUCH HER FACE ON COMMAND. SHE STATES SHE IS ABLE TO SEE HER SON AT THE FOOT OF THE BED, THEN STATED SHE COULDN'T SEE HER CUP ON THE TABLE IN FRONT OF HER. FINE DEXTERITY REMAINS AN ISSUE. SHE IS ABLE TO GRASP HER CUP AND WILL ATTEMPT MOVEMENT WHEN INSTRUCTED. SHE WILL TRY TO NOT USE HER HANDS OR LOOK AT WHOMEVER IS SPEAKING. ENCOURAGED TO USE HER EYES AND USE HER HANDS MUCH POSSIBLE.
--- NOTE | 2023-06-08 11:00 | NUR ---
DRESSING CHANGE: ABD REMOVED, SOILING FROM DRAINAGE ABOUT 2/3 OF DRESSING. DRAINAGE IS FOUL SMELLING AND YELLOW/GREEN COLORED. SALINE WASH SPRAYED OVER ABDOMEN, PATTED DRY, AREA TO RIGHT OF WOUND IS HARD, NO DRAINAGE WITH PRESSURE, PT DOESN'T WAKE WHILE DRESSING CHANGED/CLEANED. WOUND IS SIZE OF NICKEL. THERE IS SOME AREAS AROUND THE ABDOMEN WITH REDNESS, LOOKS TO BE FROM ADHESIVE. LESS DRAINAGE AND ODOR THAN ON FRIDAY. DRAINAGE LESS BROWN TODAY WELL. PT THEN REPOSITIONED WITHOUT INCIDENT.
--- NOTE | 2023-06-08 12:06 | NUR ---
PT REFUSED LUNCH TRAY, RETURNED TO SLEEP.
--- NOTE | 2023-06-08 17:53 | NUR ---
TRISTA CONTINUES TO HAVE VISUAL DISTURBANCES. SHE IS UNABLE TO FOLLOW FROM RIGHT TO LEFT IN THE VISUAL FIELD. SHE STATED THAT SHE COULD SEE FAR AWAY (HER SON) THIS AM BUT UNABLE TO SEE THE BEVERAGE CUP ON THE TABLE IN FRONT OF HER. SHE WAS NAUSEATED THIS AM AFTER DRINKING 2/3 OF A STRAWBERRY SHAKE BROUGHT IN BY HER SON. SHE REFUSED HER LUNCH TRAY AND HER DINNER TRAY, THEN ASKED AND ATE A CUP OF ICE CREAM. HER IV FLUIDS WERE DC'D THIS AM, HER ANTIBIOTICS CONTINUE. HER DRESSING CHANGED, PARTIAL BATH. SHE SLEPT MOST OF THE DAY AFTER BEING MEDI CATED FOR HER NAUSEA. SON GIVEN UPDATE THIS EVENING.
[2023-06-09] VITALS (11 sets, daily range): BP systolic 106–120; BP diastolic 56–70
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
[2023-06-09 08:06] LABS: BASOPHILS ABSOLUTE AUTO 0.03 K/mm3 (0.00-0.23); BASOPHILS PERCENT AUTO 1 % (0-2); EOSINOPHILS ABSOLUTE AUTO 0.15 K/mm3 (0.00-0.68); EOSINOPHILS PERCENT AUTO 3 % (0-6); Hematocrit 37.4 % (33.0-51.0); Hemoglobin 11.9 g/dL (11.5-16.0); IMMATURE GRAN ABSOLUTE AUTO 0.02 K/mm3 (0.00-0.10); IMMATURE GRAN PERCENT AUTO 0 % (0-1); LYMPHOCYTES ABSOLUTE AUTO 1.58 K/mm3 (0.84-5.20); LYMPHOCYTES PERCENT AUTO 31 % (21-46); MONOCYTES ABSOLUTE AUTO 0.43 K/mm3 (0.16-1.47); MONOCYTES PERCENT AUTO 8 % (4-13); Mean Corpuscular HGB 30.7 pg (26.0-34.0); Mean Corpuscular HGB Conc 31.8 g/dL (31.5-36.5); Mean Corpuscular Volume 96 fL (80-100); Mean Platelet Volume 11.8 fL (9.1-12.4); NEUTROPHILS ABSOLUTE AUTO 2.95 K/mm3 (1.96-9.15); NEUTROPHILS PERCENT AUTO 57 % (41-73); Platelet Count 147 K/mm3 (150-400); RDW Coefficient Variation 14.6 % (11.7-14.2); RDW Standard Deviation 51.9 fL (35.1-46.3); Red Blood Cell Count 3.88 M/mm3 (3.80-5.20); White Blood Cell Count 5.16 K/mm3 (4.00-11.30)
[2023-06-09 08:18] LABS: Bun/Creatinine Ratio 14.3 (12.0-20.0); Calcium, Blood 8.5 mg/dL (8.5-10.1); Creatinine, Blood 0.84 mg/dL (0.40-1.00); Potassium, Blood 3.8 mmol/L (3.5-5.5)
--- NOTE | 2023-06-09 16:09 | NUR ---
TRANSFER NOTE: Received pt from PCU at 1545 A&O x3. Neuro assessment complete. Tracks, pt states blurry vision, can see light. Gen weakness notes. SBP 116. Q 2 hour turns. Edema noted all 4 ext. BUE and BLE elevated. Resp even nonlabored on RA. Ileostomy intact. Dsg to wound CDI. Purewick in place, suction attached. Request icecream stating she is starving. Oriented to room and call light. Bed locked in lowest position. Call light in reach. Will continue to monitor this shift.
[2023-06-10 02:53] VITALS: BP 108/67
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
[2023-06-10 07:55] VITALS: BP 126/84
[2023-06-10] MEDS ORDERED: AMLO10 PO (14:35)
[2023-06-10] MEDS ORDERED: ATOR20 PO (14:35)
[2023-06-10] MEDS ORDERED: LEVE500 PO (14:35)
[2023-06-10] MEDS ORDERED: LOSA50 PO (14:36)
[2023-06-10] MEDS ORDERED: METR500 PO (14:37)
[2023-06-10] MEDS ORDERED: CEPH500 PO (14:37)
[2023-06-10 15:15] LABS: Influenza A, PCR NEGATIVE (NEGATIVE); Influenza B, PCR NEGATIVE (NEGATIVE); Resp Syncytial Virus, PCR NEGATIVE (NEGATIVE); SARS-Cov-2 (COVID-19) PCR, MMC NEGATIVE (NEGATIVE)
--- NOTE | 2023-06-10 17:06 | NUR ---
DISCHARGE: PT D/C @1700 [facility] TO [facility]. REPORT CALLED TO [facility] @1600. SON OF PT WAS CALLED TO LET KNOW OF TRANSPORT. PICC LINE REMOVED BY NENO CARO. POWERGLIDE IN MIKE REMOVED BY THIS RN W/O COMPLICATIONS. ILIOSTOMY EMPTIED AND BRIEF CHANGED PRIOR TO DISCHARGE. ALL BELONGINGS SENT WITH PT AND TRANSPORT.
== END 2023-06-10 16:56 | DRG 70 ==
LOC: ER 20:09 → MEDS 20:10 → ER 05-31 01:17 → MEDS 05-31 06:01 → PCU 06-01 14:53 → ICUE 06-01 14:53 → MEDS 06-01 15:04 → ICUE 06-04 18:45 → PCU 06-07 01:03 → MEDS 06-09 15:53 → ENPENDDIS 06-10 15:45 → MEDS 06-10 16:56
PROVIDERS: Emergency Medicine; Family Medicine; Internal Medicine; ADMIT Internal Medicine
DX: I67.83 Posterior reversible encephalopathy syndrome (principal); I60.9 Nontraumatic subarachnoid hemorrhage, unspecified; K63.2 Fistula of intestine; E87.0 Hyperosmolality and hypernatremia; N17.9 Acute kidney failure, unspecified; I67.82 Cerebral ischemia; T85.79XA Infection and inflammatory reaction due to other internal prosthetic devices, implants and grafts, initial encounter; Z68.42 Body mass index [BMI] 45.0-49.9, adult; K29.80 Duodenitis without bleeding; G43.909 Migraine, unspecified, not intractable, without status migrainosus; S31.109A Unspecified open wound of abdominal wall, unspecified quadrant without penetration into peritoneal cavity, initial encounter; X58.XXXA Exposure to other specified factors, initial encounter; E86.0 Dehydration; H53.8 Other visual disturbances; E87.6 Hypokalemia; E66.9 Obesity, unspecified; B95.4 Other streptococcus as the cause of diseases classified elsewhere; F32.A Depression, unspecified; K80.20 Calculus of gallbladder without cholecystitis without obstruction; E87.8 Other disorders of electrolyte and fluid balance, not elsewhere classified; D64.9 Anemia, unspecified; F41.9 Anxiety disorder, unspecified; B96.4 Proteus (mirabilis) (morganii) as the cause of diseases classified elsewhere; R54 Age-related physical debility; Z91.81 History of falling; Z20.822 Contact with and (suspected) exposure to COVID-19; M48.00 Spinal stenosis, site unspecified; I10 Essential (primary) hypertension; E23.6 Other disorders of pituitary gland; Z93.3 Colostomy status; Z88.5 Allergy status to narcotic agent; Z88.8 Allergy status to other drugs, medicaments and biological substances; Z91.048 Other nonmedicinal substance allergy status; Z86.16 Personal history of COVID-19; Z86.19 Personal history of other infectious and parasitic diseases; Z93.2 Ileostomy status; Z87.19 Personal history of other diseases of the digestive system; Z90.710 Acquired absence of both cervix and uterus; Z98.890 Other specified postprocedural states
CPT/HCPCS: 0241U; 36415; 36569; 70450; 70460; 70551; 71045; 76705; 80048; 80053; 81001; 82140; 84439; 84443; 84481; 85025; 85027; 87040; 87070; 87075; 87076; 87077; 87147; 87186; 87205; 92526; 92610; 96365; 96366; 96367; 96375; 96376; 97110; 97112; 97161; 97164; 97166; 97530; 97535; 99285-25; A9270; C1751; G0378; J0360; J0696; J2405; J2765; J3010; J3480; J7030; J7042; J7050; J7060; J7120; Q9967

== ENCOUNTER → 2023-09-22 | Outpatient (CLI) | payer OTHER ==
[~2023-09-22] MED LIST changes: +AMLO10 PO; +ATOR20 PO; +Calcium Carbon500 MG PO; +EUTHYROX125 MC1 PO; +GABA300 PO; +LEVE500 PO; +LEVSOD137 PO; +LOSA25 PO; +[UNRECOGNIZED DRUG - OTHER] BOTHEYES
[2023-09-22 14:27] LABS: BASOPHILS ABSOLUTE AUTO 0.03 K/mm3 (0.00-0.23); BASOPHILS PERCENT AUTO 1 % (0-2); EOSINOPHILS ABSOLUTE AUTO 0.17 K/mm3 (0.00-0.68); EOSINOPHILS PERCENT AUTO 3 % (0-6); Hematocrit 36.5 % (33.0-51.0); Hemoglobin 11.3 g/dL (11.5-16.0); IMMATURE GRAN ABSOLUTE AUTO 0.02 K/mm3 (0.00-0.10); IMMATURE GRAN PERCENT AUTO 0 % (0-1); LYMPHOCYTES ABSOLUTE AUTO 1.74 K/mm3 (0.84-5.20); LYMPHOCYTES PERCENT AUTO 33 % (21-46); MONOCYTES ABSOLUTE AUTO 0.33 K/mm3 (0.16-1.47); MONOCYTES PERCENT AUTO 6 % (4-13); Mean Corpuscular HGB 31.8 pg (26.0-34.0); Mean Corpuscular Volume 103 fL (80-100); Mean Platelet Volume 11.2 fL (9.1-12.4); NEUTROPHILS ABSOLUTE AUTO 2.96 K/mm3 (1.96-9.15); NEUTROPHILS PERCENT AUTO 56 % (41-73); Platelet Count 214 K/mm3 (150-400); RDW Coefficient Variation 15.2 % (11.7-14.2); RDW Standard Deviation 57.7 fL (35.1-46.3); Red Blood Cell Count 3.55 M/mm3 (3.80-5.20); White Blood Cell Count 5.25 K/mm3 (4.00-11.30)
[2023-09-22 15:08] LABS: Albumin, Blood 2.8 g/dL (3.4-5.0); Albumin/Globulin Ratio 0.7 (0.8-1.8); Bilirubin, Total 0.4 mg/dL (0.1-1.0); Bun/Creatinine Ratio 26.2 (12.0-20.0); Calcium, Blood 8.8 mg/dL (8.5-10.1); Creatinine, Blood 0.76 mg/dL (0.40-1.00); Globulin, Blood 3.8 g/dL (2.2-4.0); Potassium, Blood 4.2 mmol/L (3.5-5.5); Thyroid Stimulating Hormone 5.61 uIU/mL (0.360-4.800); Total Protein, Blood 6.6 g/dL (6.4-8.2)
== END | disposition home or self-care (01) ==
LOC: LAB SHORT 13:20 → LAB 13:20
PROVIDERS: Physician Assistant
DX: Z43.2 Encounter for attention to ileostomy (principal); L02.211 Cutaneous abscess of abdominal wall; I67.83 Posterior reversible encephalopathy syndrome; K29.90 Gastroduodenitis, unspecified, without bleeding; E03.9 Hypothyroidism, unspecified; K57.90 Diverticulosis of intestine, part unspecified, without perforation or abscess without bleeding
CPT/HCPCS: 80053; 84443; 85025

== ENCOUNTER 2023-12-01 09:49 | Day surgery (SDC) | payer OTHER | END 2023-12-01 23:50 | disposition home or self-care (01) | LOC: WOUND 09:49 | DX: K63.2 Fistula of intestine (principal); Z93.2 Ileostomy status; Z88.5 Allergy status to narcotic agent; Z88.8 Allergy status to other drugs, medicaments and biological substances | CPT/HCPCS: G0463 ==